=== PATIENT | female | born 1975 | race Caucasian/White ===

== ENCOUNTER → 2021-02-21 15:03 | Outpatient (BNVA) | payer BC, SELFPAY | PROVIDERS: PCP Family Medicine; Visit Provider Internal Medicine ==

== ENCOUNTER 2021-02-22 14:44 | Outpatient (REF) | payer BC, SELFPAY ==
--- NOTE | 2021-02-22 17:29 | PFT_ITS ---
FLOWS: FEV1 103% of predicted at 3.15 L. FVC 95% of predicted at 3.66 L. FEV1 to FVC ratio of 0.86. No bronchodilator response except in small to medium airways. LUNG VOLUMES: Total lung capacity 89% of predicted at 4.79 L. Residual volume 80% of predicted at 1.47 L. Slow vital capacity 94% of predicted at 3.32 L. Expiratory reserve volume 115% of predicted at 1.35 L. Diffusion capacity is normal. IMPRESSION: No obstructive or restrictive ventilatory defect. No bronchodilator response except in small to medium airways. Otherwise essentially normal pulmonary function test. MD RICHY Harris/MODL / [id number] MTDD
== END 2021-02-22 14:45 | disposition home or self-care (01) ==
LOC: HO.RESP 14:44
PROVIDERS: PCP Family Medicine; Visit Provider Internal Medicine
DX: J45.909 Unspecified asthma, uncomplicated (principal); R05 Cough
CPT/HCPCS: 94060; 94727; 94729

== ENCOUNTER → 2021-03-15 14:57 | Outpatient (BNVA) | payer BC, SELFPAY | PROVIDERS: PCP Family Medicine; Visit Provider Internal Medicine ==

== ENCOUNTER → 2021-04-19 15:27 | Outpatient (BNVA) | payer BC, SELFPAY | PROVIDERS: PCP Family Medicine; Visit Provider Internal Medicine ==

== ENCOUNTER 2023-10-30 09:35 | Outpatient (AMB) | payer BC, SELFPAY ==
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
[2023-10-30 09:50] VITALS: BP 110/58; PULSE 110; RESP 14; TEMP 36.7; O2SAT 97; BMI 24.3
== END 2023-10-30 10:48 | disposition home or self-care (01) ==
PROVIDERS: PCP Family Medicine; Visit Provider Internal Medicine
DX: Z00.00 Encounter for general adult medical examination without abnormal findings (principal); I10 Essential (primary) hypertension; E78.2 Mixed hyperlipidemia; R94.6 Abnormal results of thyroid function studies; J45.20 Mild intermittent asthma, uncomplicated; G47.33 Obstructive sleep apnea (adult) (pediatric)
CPT/HCPCS: 99396

== ENCOUNTER 2023-10-30 10:52 | Outpatient (REF) | payer BC, SELFPAY ==
[2023-10-30 14:20] LABS: MANUAL DIFF FLAG NO
[2023-10-30 14:33] LABS: Basophils Absolute Auto 0.1 X10*3/uL (0.0-0.2); Basophils Percent Auto 0.7 % (0-2); Eosinophils Absolute Auto 0.1 X10*3/uL (0.0-0.4); Eosinophils Percent Auto 1.7 % (0-4); Hemoglobin 13.2 g/dl (12.0-16.0); Imm Gran Abs Auto 0.02 X10*3/uL (0.00-0.03); Imm Gran Pct Auto 0.3 % (0.0-0.4); Lymphocytes Absolute Auto 2.8 X10*3/uL (1.2-4.9); Lymphocytes Percent Auto 38.7 % (20-40); Mean Corpuscular Hemoglobin 30.4 pg (27.0-33.0); Mean Corpuscular Volume 92.2 fL (80.0-98.0); Mean Platelet Volume 9.9 fL (9.4-12.3); Monocytes Absolute Auto 0.5 X10*3/uL (0.1-1.2); Neutrophils Absolute Auto 3.7 x10*3/uL (2.0-8.3); Neutrophils Percent Auto 51.6 % (45-73); Platelet Count 367 X10*3/uL (160-400); Red Blood Count 4.34 X10*6/uL (4.20-5.50); Red Cell Distribution Width 13.8 % (11.0-16.0); White Blood Count 7.1 X10*3/uL (4.8-10.8)
[2023-10-30 15:12] LABS: Alanine Aminotransferase 37 U/L (0-31); Albumin Level 4.5 g/dL (3.5-5.0); Alkaline Phosphatase 131 U/L (39-117); Anion Gap 11 (12-20); Aspartate Amino Transferase 20 U/L (5-31); Bilirubin Total 0.1 mg/dL (0.0-1.0); Blood Urea Nitrogen 17 mg/dL (9-16); Calcium 9.8 mg/dL (8.4-10.2); Carbon Dioxide 24 mmol/L (22-29); Chloride 111 mmol/L (96-108); Cholesterol 297 mg/dL (<200); Estimated Glomerular Filt Rate > 60; Glucose Random 78 mg/dL (60-115); HDL Cholesterol 50 mg/dL (>40); LDL Cholesterol Calculated 208 mg/dL (<100); Potassium 3.7 mmol/L (3.3-5.1); Sodium 142 mmol/L (135-145); Total Protein 7.5 g/dL (6.5-8.0); Triglycerides 195 mg/dL (<150)
[2023-10-30 15:16] LABS: TSH reflex Free T4 0.93 uIU/mL (0.32-4.0)
== END 2023-10-30 10:53 | disposition home or self-care (01) ==
LOC: HO.WFDLDS 10:52
PROVIDERS: Visit Provider Internal Medicine
DX: E78.5 Hyperlipidemia, unspecified (principal); I10 Essential (primary) hypertension; R94.6 Abnormal results of thyroid function studies
CPT/HCPCS: 36415; 80053; 80061; 84443; 85025

== ENCOUNTER 2024-02-16 15:47 | Outpatient (AMB) | payer BC, SELFPAY ==
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
--- OUTSIDE RECORDS SUMMARY | 2024-02-16 15:49 | XMS_ITS | Continuity of Care Document ---
Author Organization [facility] Address [address] [place] [id number]- Care Team Providers Care Pr Internship Name Role Phone Cornell VALLECILLO, Miriam Sharpe Primary Care Physician Encounter [facility] [place] Date(s): 10/13/20 - 11/12/20 [facility] [address] [place] [id number] Allergies, Adverse Reactions, Alerts Substance Reaction Severity Status codeine C/O: itching Active morphine N/V, itching, migraines Acti ve sulfa drugs Hives Active Vicodin itching, N/V, migraines Acti ve Demerol HCl itching, N/V, migraines Acti ve Adhesive Bandage C/O: itching Active Immunizations Given and Recorded Vaccine Date Status Refusal Reason Influenza Virus Vaccine (oldterm) 02/07/20 Recorde d influenza virus vaccine, inactivated 03/23/19 Willie rded pneumococcal 13-valent vaccine 03/11/18 Recorded tetanus/diphtheria/pertussis, acel(Tdap) 10/20/15 Given pneumococcal 23-valent vaccine 05/05/09 Given Medications Aimovig SureClick Autoinjector-aooe 140 mg/mL subcutaneous solution = 140 mg, Subcutaneous Infusion, Every 28 days, # 1 kit, 5 Refills, Maintenance, 07/10/20 9:56:00 EST, [facility], 167.6, cm, 06/06/20 14:32:00 EST, Height, 102.1, kg, 04/11/20 6:08:00 EST, Dry Weight Start Date: 07/10/20 Status: Ordered albuterol 0.083% inhalation solution 3 mL = 2.5 mg, Inhalation, Every 6 hours, PRN for wheezing/shortness of breath, # 60 each, 2 Refills, Maintenance, 08/30/20 14:43:00 EDT, Solution, [facility] [address] [place] [address], [place], Partial fill upon patient request if the prescription is... Start Date: 08/30/20 Status: Ordered allopurinol 300 mg oral tablet 300 mg, 1, tablet, By Mouth, Daily, # 30 tablet, Refills 0, Maintenance, 09/30/19 15:52:00 EDT Start Date: 09/30/19 Status: Ordered budesonide 1 mg/2 mL inhalation suspension 1 vials, Inhalation, Daily, # 60 mL, 5 Refills, Maintenance, 11/10/20 12:54:00 EDT, [facility] [address] [place] [address], [place], 168, cm, 10/30/20 10:27:00 EDT, Height, 98.5, kg, 08/03/20 15:21:00 EST, Dry Weight Start Date: 11/10/20 Status: Ordered busPIRone 7.5 mg oral tablet 1 tablet, By Mouth, 2 times a day, # 60 tablet, 2 Refills, Maintenance, 09/13/20 15:06:00 EDT, [facility] [address] [place] [address], [place], 168, cm, 08/03/20 15:21:00 EST, Height, 98.5, kg, 08/03/20 15:21:00 EST, Dry Weight Start Date: 09/13/20 Status: Ordered hydrochlorothiazide 25 mg oral tablet 25 mg, 1, tablet, By Mouth, Daily, # 30 tablet, Refills 5, Tot. Refills 5, Maintenance, 08/07/20 8:58:00 EST, Route to Pharmacy Electronically, [facility] [address] [place] [address], [place], 168, cm,08/03/20 15:21:00 EST, Height, 98.5, kg, 08/03/20 1... Start Date: 08/07/20 Status: Ordered lansoprazole 30 mg oral enteric coated capsule 1 capsule = 30 mg, By Mouth, Daily, # 30 capsule, 0 Refills, Maintenance, 09/14/18 16:04:28 EDT, ECCapsule Start Date: 09/14/18 Status: Ordered levothyroxine 0.05 mg oral tablet 1 tablet = 50 mcg, By Mouth, Daily in AM, ON AN EMPTY stomach., # 90 tablet, 1 Refills, Maintenance, 10/11/20 12:51:00 EDT, [facility] [place], 168, cm, 09/29/20 8:43:00 EDT, Height, 98.5, kg, 08/03/20 15:21:00 EST, Dry Weight Start Date: 10/11/20 Status: Ordered lisinopril 5 mg oral tablet 1, tablet, By Mouth, Daily, # 30 tablet, Refills 2, Tot. Refills 2, Maintenance, 10/11/20 12:52:00 EDT, Route to Pharmacy Electronically, [facility] [address] [place] [address], [place], 168, cm, 09/29/20 8:43:00 EDT, Height, 98.5, kg, 08/03/20 15:21:00... Start Date: 10/11/20 Status: Ordered multivitamin Lipotropic with Multivitamins oral tablet 1 tablet, By Mouth, Daily, # 90 tablet, 0 Refills, Maintenance, 06/06/20 14:35:00 EST, Tablet, Partial fill upon patient request if the prescription is for a schedule II opioid drug. Start Date: 06/06/20 Status: Ordered omeprazole 40 mg oral enteric coated capsule 1 capsule = 40 mg, By Mouth, Daily, 0 Refills, Maintenance, 09/29/20 8:47:00 EDT, Partial fill uponpatient request if the prescription is for a schedule II opioid drug. Start Date: 09/29/20 Status: Ordered ondansetron 8 mg oral tablet 1 tablet, By Mouth, 2 times a day, PRN NEEDED FOR NAUSEA/ VOMITING, # 30 tablet, 0 Refills, Maintenance, 10/13/20 21:48:00 EDT, [facility] [address] [place] [address], [place], 168, cm, 09/29/20 8:43:00 EDT, Height, 98.5, kg, 08/03/20 15:21:00 EST, D... Start Date: 10/13/20 Status: Ordered ProAir HFA 90 mcg/inh inhalation aerosol with adapter 2, puffs, Inhalation, Every 4 hours, PRN, directed., # 8.5 Gm, Refills 5, Tot. Refills 5, Maintenance, 09/26/20 12:18:00 EDT, Route to Pharmacy Electronically, [id number], [facility] [address] [place] [address], 168... Start Date: 09/26/20 Status: Ordered Probiotic Formula By Mouth, Daily, 0 Refills, Maintenance, 07/21/20 11:13:00 EST, Partial fill upon patient request if the prescription is for a schedule II opioid drug. Start Date: 07/21/20 Status: Ordered rosuvastatin 20 mg oral capsule 1 capsule = 20 mg, By Mouth, Daily, # 30 capsule, 5 Refills, Maintenance, 10/11/20 12:53:00 EDT, Capsule, [facility] [address] [place] [address], Partial fill upon patient request if the prescription is for a schedule II opioid drug., 168, cm,... Start Date: 10/11/20 Status: Ordered Singulair 10 mg oral tablet 10 mg, 1, tablet, By Mouth, Daily, # 30 tablet, Refills 5, Tot. Refills 5, Maintenance, 11/10/20 12:55:00 EDT, Route to Pharmacy Electronically, [facility] [address] [place] [address], Partialfill upon patient request if the prescription is fo... Start Date: 11/10/20 Status: Ordered Topamax 100 mg oral tablet 1 tablet = 100 mg, By Mouth, 2 times a day, # 60 tablet, 5 Refills, Maintenance, 07/27/20 11:36:00 EST, Tablet, [facility] [address] [place] [address], 167.6, cm, 07/21/20 11:11:00 EST, Height, 102.1, kg, 04/11/20 6:08:00 EST, Dry Weight Start Date: 07/27/20 Stop Date: 01/23/21 Status: Ordered Zofran 4 mg oral tablet 1 tablet = 4 mg, By Mouth, Every 8 hours, PRN as needed for nausea/vomiting, # 15 tablet, 0 Refills, Maintenance, 08/03/20 15:17:00 EST, Tablet, [facility] [address] [place] [address], Partialfill upon patient request if the prescription is fo... Start Date: 08/03/20 Stop Date: 3/2/21 Status: Ordered Problem List Condition Effective Dates Status Health Status Inform ant Anxiety(Confirmed) Active Asthma(Confirmed) Active Degenerative disc disease(Confirmed) Active Depression(Confirmed) Active Esophageal reflux(Confirmed) Active Hyperglycemia(Confirmed) Active Hyperlipidemia(Confirmed) Active Hypertension(Confirmed) Active Hypothyroid(Confirmed) Active IBS - Irritable bowel syndrome(Confirmed) Active Migraine(Confirmed) Active Radiculopathy(Confirmed) Active Occipital neuralgia(Confirmed) Active Rheumatoid arthritis(Confirmed) Active Tachycardia(Confirmed) Active Social History Social History Type Response Smoking Status Former smoker; Tobac co user in household: No; Type: Cigarettes entered on: 04/24/15 Sex Female
--- OUTSIDE RECORDS SUMMARY | 2024-02-16 15:49 | XMS_ITS | Continuity of Care Document ---
Author Organization [facility] Address [address] [place] [address] D[place], [address] [place] [address]- Care Team Providers Care Barge Loader Name Role Phone Cornell VALLECILLO, Miriam Sharpe Primary Care Physician Encounter [facility] [place] Date(s): 12/24/19 - 01/23/20 [facility] [address] [place] [address] Drive, [address] [place] [address]- [facility] Allergies, Adverse Reactions, Alerts Substance Reaction Severity Status codeine C/O: itching Active morphine N/V, itching, migraines Acti ve sulfa drugs Hives Active Vicodin itching, N/V, migraines Acti ve Demerol HCl itching, N/V, migraines Acti ve Adhesive Bandage C/O: itching Active Immunizations Given and Recorded Vaccine Date Status Refusal Reason influenza virus vaccine, inactivated 03/23/19 Willie rded pneumococcal 13-valent vaccine 03/11/18 Recorded tetanus/diphtheria/pertussis, acel(Tdap) 10/20/15 Given pneumococcal 23-valent vaccine 05/05/09 Given Medications acetaminophen-oxyCODONE 325 mg-5 mg oral tablet 1, tablet, By Mouth, Every 6 hours, PRN, # 28 tablet, Refills 0, Tot. Refills 0, Maintenance, Pain , Moderate, 01/03/20 17:23:00 EDT, Route to Pharmacy Electronically, [facility] [address], Partial fill upon patient request, 167.... Start Date: 01/03/20 Status: Ordered allopurinol 300 mg oral tablet 300 mg, 1, tablet, By Mouth, Daily, # 30 tablet, Refills 0, Maintenance, 09/30/19 15:52:00 EDT Start Date: 09/30/19 Status: Ordered atorvastatin 40 mg oral tablet 1 tablet, By Mouth, Daily, # 30 tablet, 0 Refills, Maintenance, 01/17/20 8:18:00 EDT, [facility] [place], 167.64, cm, 12/14/19 17:50:00 EDT, Height, 106.4, kg, 12/14/19 17:54:00 EDT, Dry Weight Start Date: 01/17/20 Status: Ordered busPIRone 7.5 mg oral tablet 1 tablet, By Mouth, 2 times a day, # 60 tablet, 2 Refills, Maintenance, 12/08/19 12:54:00 EDT, [facility] #[address] [place] [address], 167.64, cm, 12/06/19 15:16:00 EDT, Height, 104.55, kg, 12/06/19 15:16:00 EDT, Dry Weight Start Date: 12/08/19 Status: Ordered hydrochlorothiazide 25 mg oral tablet 25 mg, 1, tablet, By Mouth, Daily, # 30 tablet, Refills 2, Tot. Refills 2, Maintenance, 11/04/19 9:33:00 EDT, Route to Pharmacy Electronically, [facility] [address] [place] [address], 168, cm, 11/03/19 14:03:00 EDT, Height, 116, kg, 06/03/19 14:55:00 EST... Start Date: 11/04/19 Status: Ordered lansoprazole 30 mg oral enteric coated capsule 1 capsule = 30 mg, By Mouth, Daily, # 30 capsule, 0 Refills, Maintenance, 09/14/18 16:04:28 EDT, ECCapsule Start Date: 09/14/18 Status: Ordered levothyroxine 0.05 mg oral tablet 1 tablet = 50 mcg, By Mouth, Daily in AM, ON AN EMPTY stomach., # 90 tablet, 0 Refills, Maintenance, 01/17/20 8:19:00 EDT, [facility] #[facility] [place], [place], 167.64, cm, 12/14/19 17:50:00EDT, Height, 106.4, kg, 12/14/19 17:54:00 EDT, Dry... Start Date: 01/17/20 Status: Ordered lisinopril 5 mg oral tablet 5 mg, 1, tablet, By Mouth, Daily, # 30 tablet, Refills 2, Tot. Refills 2, Maintenance, 11/04/19 9:34:00 EDT, Route to Pharmacy Electronically, [facility] [place], 168, cm, 11/03/19 14:03:00 EDT, Height, 116, kg, 06/03/19 14:55:00 EST,... Start Date: 11/04/19 Status: Ordered Medrol Dosepak 4 mg oral tablet See Instructions, 1 pack/packet By Mouth Daily 6 days, # 1 pack/packet, 0 Refills, Maintenance, 12/28/19 6:48:00 EDT, Tablet, [facility] #[facility] [place], f/u with PCP if history of DM or high blood sugar, 167.64, cm, 12/14/19 17:50:00 EDT, He... Start Date: 12/28/19 Status: Ordered Multi Vitamin+ 0 Refills, Maintenance, 07/21/19 15:30:00 EST Start Date: 07/21/19 Status: Ordered naratriptan 2.5 mg oral tablet 1 tablet = 2.5 mg, By Mouth, Daily, PRN for migraine headache, may repeat dose once in 4 hours, # 9tablet, 2 Refills, Acute 11/12/20 16:16:00 EDT, 10/13/19 16:15:00 EDT, Tablet, [facility] [place], tried sumatriptan , eletriptan , ri... Start Date: 10/13/19 Stop Date: 11/12/20 Status: Ordered ProAir HFA 90 mcg/inh inhalation aerosol with adapter 2, puffs, Inhalation, Every 4 hours, PRN, # 8.5 Gm, Refills 5, Tot. Refills 0, Maintenance, 10/27/19 11:07:00 EDT, Route to Pharmacy Electronically, [id number], [facility] [place], 168, cm, 10/19/19 8:27:00 EDT, Height... Start Date: 10/27/19 Status: Ordered Pulmicort Flexhaler 180 mcg 1 puffs, Inhalation, 2 times a day, # 1 each, 0 Refills, Maintenance, 11/04/19 11:17:00 EDT, Powder, [facility] [place], 1 puffs Inhalation 2 times a day, 168, cm, 11/03/19 14:03:00 EDT, Height, 116, kg, 06/03/19 14:55:00 EST, Dry Weight Start Date: 11/04/19 Status: Ordered tiZANidine 4 mg oral tablet 4 mg, 1, tablet, By Mouth, 3 times a day, # 90 tablet, Refills 0, Tot. Refills 0, Maintenance, 12/14/19 15:29:00 EDT, Route to Pharmacy Electronically, [facility] [place], 167.64, cm, 12/14/19 9:02:00 EDT, Height, 106.4, kg, 12/14/19... Start Date: 12/14/19 Status: Ordered topiramate 25 mg oral tablet 3 tablet = 75 mg, By Mouth, 2 times a day, dose increase, # 180 tablet, 5 Refills, Maintenance, 10/13/19 16:12:00 EDT, Tablet, [facility] [place], 168, cm, 10/01/19 8:15:00 EDT, Height, 116, kg, 06/03/19 14:55:00 EST, Dry Weight Start Date: 10/13/19 Stop Date: 04/10/20 Status: Ordered Zofran 8 mg oral tablet 1 tablet = 8 mg, By Mouth, Every 8 hours, PRN as needed for nausea/vomiting, 0 Refills, Maintenance, 09/02/16 11:46:50, Tablet Start Date: 09/02/16 Status: Ordered Problem List Condition Effective Dates Status Health Status Inform ant Anxiety(Confirmed) Active Asthma(Confirmed) Active Degenerative disc disease(Confirmed) Active Depression(Confirmed) Active Esophageal reflux(Confirmed) Active Hyperglycemia(Confirmed) Active Hyperlipidemia(Confirmed) Active Hypertension(Confirmed) Active Hypothyroid(Confirmed) Active IBS - Irritable bowel syndrome(Confirmed) Active Migraine(Confirmed) Active Occipital neuralgia(Confirmed) Active Rheumatoid arthritis(Confirmed) Active Tachycardia(Confirmed) Active Social History Social History Type Response Smoking Status Former smoker; Tobac co user in household: No; Type: Cigarettes entered on: 04/24/15 Sex Female
--- OUTSIDE RECORDS SUMMARY | 2024-02-16 15:49 | XMS_ITS | Continuity of Care Document ---
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 Inserter Operator Name Role Phone Conrell VALLECILLO, Miriam Sharpe Primary Care Physician Encounter [facility] [place] Date(s): 10/18/20 - 11/17/20 [facility] [address] [place] [id number] Allergies, Adverse Reactions, Alerts Substance Reaction [...] kit, 5 Refills, Maintenance, 07/10/20 9:56:00 EST, [facility], 167.6, cm, 06/06/20 14:32:00 EST, Height, 102.1, kg, 04/11/20 6:08:00 EST, Dry Weight Start Date: 07/10/20 Status: Ordered albuterol 0.083% inhalation solution 3 mL = 2.5 mg, Inhalation, Every 6 hours, PRN for wheezing/shortness of breath, # 60 each, 2 Refills, Maintenance, 08/30/20 14:43:00 EDT, Solution, [facility] [address] [place] [address], [place], Partial fill upon patient request if the prescription is... Start Date: 08/30/20 Status: Ordered allopurinol 300 mg oral tablet 300 mg, 1, tablet, By Mouth, Daily, # 30 tablet, Refills 0, Maintenance, 09/30/19 15:52:00 EDT Start Date: 09/30/19 Status: Ordered budesonide 1 mg/2 mL inhalation suspension 1 vials, Inhalation, Daily, # 60 mL, 5 Refills, Maintenance, 11/10/20 12:54:00 EDT, [facility] [address] [place] [address], [place], 168, cm, 10/30/20 10:27:00 EDT, Height, 98.5, kg, 08/03/20 15:21:00 EST, Dry Weight Start Date: 11/10/20 Status: Ordered busPIRone 7.5 mg oral tablet 1 tablet, By Mouth, 2 times a day, # 60 tablet, 2 Refills, Maintenance, 09/13/20 15:06:00 EDT, [facility] [address] [place] [address], [place], 168, cm, 08/03/20 15:21:00 EST, Height, 98.5, kg, 08/03/20 15:21:00 EST, Dry Weight Start Date: 09/13/20 Status: Ordered hydrochlorothiazide 25 mg oral tablet 25 mg, 1, tablet, By Mouth, Daily, # 30 tablet, Refills 5, Tot. Refills 5, Maintenance, 08/07/20 8:58:00 EST, Route to Pharmacy Electronically, [facility] [address] [place] [address], [place], 168, cm,08/03/20 15:21:00 EST, Height, 98.5, kg, [...] tablet, 1 Refills, Maintenance, 10/11/20 12:51:00 EDT, [facility] [address] [place] [address], [place], 168, cm, 09/29/20 8:43:00 EDT, Height, 98.5, kg, 08/03/20 15:21:00 EST, Dry Weight Start Date: 10/11/20 Status: Ordered lisinopril 5 mg oral tablet 1, tablet, By Mouth, Daily, # 30 tablet, Refills 2, Tot. Refills 2, Maintenance, 10/11/20 12:52:00 EDT, Route to Pharmacy Electronically, [facility] [address] [place] [address], [place], 168, cm, 09/29/20 8:43:00 EDT, Height, 98.5, [...] tablet, 0 Refills, Maintenance, 10/13/20 21:48:00 EDT, [facility] [address] [place] [address], [place], 168, cm, 09/29/20 8:43:00 EDT, Height, 98.5, kg, 08/03/20 15:21:00 EST, D... Start Date: 10/13/20 Status: Ordered ProAir HFA 90 mcg/inh inhalation aerosol with adapter 2, puffs, Inhalation, Every 4 hours, PRN, directed., # 8.5 Gm, Refills 5, Tot. Refills 5, Maintenance, 09/26/20 12:18:00 EDT, Route to Pharmacy Electronically, [id number], [facility] [address] [place] [address], 168... Start Date: 09/26/20 Status: Ordered Probiotic Formula By Mouth, Daily, 0 Refills, Maintenance, 07/21/20 11:13:00 EST, Partial fill upon patient request if the prescription is for a schedule II opioid drug. Start Date: 07/21/20 Status: Ordered rosuvastatin 20 mg oral capsule 1 capsule = 20 mg, By Mouth, Daily, # 30 capsule, 5 Refills, Maintenance, 10/11/20 12:53:00 EDT, Capsule, [facility] [address] [place] [address], Partial fill upon patient request if the prescription is for a schedule II opioid drug., 168, cm,... Start Date: 10/11/20 Status: Ordered Singulair 10 mg oral tablet 10 mg, 1, tablet, By Mouth, Daily, # 30 tablet, Refills 5, Tot. Refills 5, Maintenance, 11/10/20 12:55:00 EDT, Route to Pharmacy Electronically, [facility] [address] [place] [address], Partialfill upon patient request if the prescription is fo... Start Date: 11/10/20 Status: Ordered Topamax 100 mg oral tablet 1 tablet = 100 mg, By Mouth, 2 times a day, # 60 tablet, 5 Refills, Maintenance, 07/27/20 11:36:00 EST, Tablet, [facility] [address] [place] [address], 167.6, cm, 07/21/20 11:11:00 EST, Height, 102.1, kg, 04/11/20 6:08:00 EST, Dry Weight Start Date: 07/27/20 Stop Date: 01/23/21 Status: Ordered Zofran 4 mg oral tablet 1 tablet = 4 mg, By Mouth, Every 8 hours, PRN as needed for nausea/vomiting, # 15 tablet, 0 Refills, Maintenance, 08/03/20 15:17:00 EST, Tablet, [facility] [address] [place] [address], Partialfill upon patient request if the prescription is fo... Start Date: 08/03/20 Stop Date: 08/08/20 Status: Ordered Problem List Condition Effective Dates [...]
--- OUTSIDE RECORDS SUMMARY | 2024-02-16 15:49 | XMS_ITS | Continuity of Care Document ---
Author Organization [facility] ter Address [address] [place] [id number]- Care Team Providers Care Liquefier Name Role Phone Cornell VALLECILLO, Miriam Sharpe Primary Care Physician Encounter [facility] [place] Date(s): 04/11/20 - 04/11/[address] [address]- [facility] Discharge Disposition: A-D/C Home Attending Physician: Todd Gallo MD Admitting Physician: Todd Gallo MD Referring Physician: Todd Gallo MD Allergies, Adverse Reactions, Alerts Substance Reaction Severity [...] days, # 1 kit, 5 Refills, Maintenance, 02/08/20 9:40:00 EDT, [facility], 167.64, cm, 02/07/20 13:13:00 EDT, Height, 106.4, kg, 12/14/19 17:54:00 EDT, Dry Weight Start Date: 02/08/20 Status: Ordered allopurinol 300 mg oral tablet 300 mg, 1, tablet, By Mouth, Daily, # 30 tablet, Refills 0, Maintenance, 09/30/19 15:52:00 EDT Start Date: 09/30/19 Status: Ordered atorvastatin 80 mg oral tablet 1 tablet = 80 mg, By Mouth, Daily, # 30 tablet, 2 Refills, Maintenance, 02/10/20 8:57:00 EDT, Tablet, [facility] [place], [place], 167.64, cm, 02/07/20 13:13:00 EDT, Height, 106.4, kg, 12/14/19 17:54:00 EDT, Dry Weight Start Date: 02/10/20 Status: Ordered busPIRone 7.5 mg oral tablet 1 tablet, By Mouth, 2 times a day, # 60 tablet, 5 Refills, Maintenance, 03/17/20 14:27:00 EDT, [facility], 167.64, cm, 02/07/20 13:13:00 EDT, Height, 106.4, kg, 12/14/19 17:54:00 EDT, Dry Weight Start Date: 03/17/20 Status: Ordered hydrochlorothiazide 25 mg oral tablet 25 mg, 1, tablet, By Mouth, Daily, # 30 tablet, Refills 2, Tot. Refills 2, Maintenance, 11/04/19 9:33:00 EDT, Route to Pharmacy Electronically, [facility] [address] [place] [address], 168, cm, 11/03/19 14:03:00 EDT, Height, 116, [...] tablet, 0 Refills, Maintenance, 01/17/20 8:19:00 EDT, [facility] [place], [place], 167.64, cm, 12/14/19 17:50:00EDT, Height, 106.4, kg, 12/14/19 17:54:00 EDT, Dry... Start Date: 01/17/20 Status: Ordered lisinopril 5 mg oral tablet 5 mg, 1, tablet, By Mouth, Daily, # 30 tablet, Refills 5, Tot. Refills 5, Maintenance, 02/07/20 13:48:00 EDT, Route to Pharmacy Electronically, [facility] [address] [place] [address], 167.64, cm, 02/07/20 13:13:00 EDT, Height, 106.4, kg, ... Start Date: 02/07/20 Status: Ordered Multi Vitamin+ 0 Refills, Maintenance, 07/21/19 15:30:00 EST Start Date: 07/21/19 Status: Ordered Neurontin 300 mg oral capsule 300 mg, 1, capsule, By Mouth, 3 times a day, # 30 tablet, Refills 0, Tot. Refills 0, Maintenance, 04/11/20 15:24:00 EST, Route to Pharmacy Electronically, [facility] [address] [place] [address], 167.6, cm, 04/11/20 6:08:00 EST, Height, 102.1, k... Start Date: 04/11/20 Status: Ordered oxyCODONE 10 mg oral tablet 1 tablet = 10 mg, By Mouth, Every 6 hours, PRN as needed for pain, # 40 tablet, 0 Refills, Maintenance, 04/11/20 15:23:00 EST, Tablet, [facility] [address] [place] [address], Partial fill uponpatient request, 167.6, cm, 04/11/20 6:08:00 EST, H... Start Date: 04/11/20 Status: Ordered ProAir HFA 90 mcg/inh inhalation aerosol with adapter 2, puffs, Inhalation, Every 4 hours, PRN, directed., # 8.5 Gm, Refills 5, Tot. Refills 0, Maintenance, 02/07/20 11:10:00 EDT, Route to Pharmacy Electronically, [id number], [facility], 167.64, cm, 01/19/20 11... Start Date: 02/07/20 Status: Ordered Pulmicort Flexhaler 180 mcg 1 puffs, Inhalation, 2 times a day, # 1 each, 0 Refills, Maintenance, 11/04/19 11:17:00 EDT, Powder, [facility] [place], 1 puffs Inhalation 2 times a day, 168, cm, 11/03/19 14:03:00 EDT, Height, 116, kg, 06/03/19 14:55:00 EST, Dry Weight Start Date: 11/04/19 Status: Ordered Topamax 100 mg oral tablet 1 tablet = 100 mg, By Mouth, 2 times a day, # 60 tablet, 5 Refills, Maintenance, 01/27/20 16:14:00 EDT, Tablet, [facility] [place], [place], 167.64, cm, 01/19/20 11:34:00 EDT, Height, 106.4, kg, 12/14/19 17:54:00 EDT, Dry Weight Start Date: 01/27/20 Stop Date: 07/25/20 Status: Ordered Valium 5 mg oral tablet 5 mg, 1, tablet, By Mouth, 3 times a day, PRN, # 30 tablet, Refills 0, Tot. Refills 0, Maintenance,Spasm, 04/11/20 15:24:00 EST, Route to Pharmacy Electronically, [facility] [address] [place] [address], 167.6, cm, 04/11/20 6:08:00 EST, Height,... Start Date: 04/11/20 Status: Ordered Zofran 8 mg oral tablet 1 tablet = 8 mg, By Mouth, 2 times a day, PRN as needed for nausea/vomiting, # 30 tablet, 0 Refills, Maintenance, 04/05/20 9:49:00 EDT, Tablet, [facility] [address] [place] [address], 167.64, cm, 04/05/20 9:29:00 EDT, Height, 106.4, kg, ... Start Date: 04/05/20 Status: Ordered Problem List Condition Effective Dates Status Health Status Inform ant Anxiety(Confirmed) Active Asthma(Confirmed) Active Degenerative disc disease(Confirmed) Active Depression(Confirmed) Active Esophageal reflux(Confirmed) Active Hyperglycemia(Confirmed) Active Hyperlipidemia(Confirmed) Active Hypertension(Confirmed) Active Hypothyroid(Confirmed) Active IBS - Irritable bowel syndrome(Confirmed) Active Migraine(Confirmed) Active Radiculopathy(Confirmed) Active Occipital neuralgia(Confirmed) Active Rheumatoid arthritis(Confirmed) Active Tachycardia(Confirmed) Active Results Radiology Reports * Exam Date Time Procedure Performing Provider Status 04/11/20 11:10 AM C-Arm > 1 Hour Madeline Knight; Kathleen h (Verified) Notes: (C-Arm > 1 Hour) Reason For Exam: cervical stenosis laminectomy decompression posterior cervical RESULT: C-Arm > 1 Hour Cervical Spine 3 Views or Less, C-Arm > 1 Hour INDICATION: cervical stenosis laminectomy decompression posterior cervical COMPARISONS: Spine radiograph 12/14/2019 TECHNIQUE: Fluoroscopy support was provided. There was no radiologist in attendance. Fluoroscopy time: 52 seconds Technologist time: 1 hour 50 minutes Exposure: 51.03 mGy Total images: 10 FINDINGS: 10 intraoperative images were submitted during C7-T1 posterior decompression. Images demonstrate localization of the C7-T1 disc space.. IMPRESSION: See above. Please see full operative report for further detail. I have personally reviewed the images and I agree with this report. WSN: [id number] Ordering Physician: Todd Gallo Dictated By: Nayeli Montero MD Dictated Date/Time: 04/11/20 11:27 a Reviewed By: Gilson Hunter MD Signed By: Gilson Hunter MD Signed Date/Time: 04/11/20 11:32 am Transcribed By: MARLEN Transcribed Date/Time: 04/11/20 11:21 am * Exam Date Time Procedure Performing Provider Status 04/11/20 11:10 AM Cervical Spine 3 Views or Less Madeline Henry; Auth (Verified) Notes: (Cervical Spine 3 Views or Less) Reason For Exam: cervical stenosis laminectomy decompression posterior cervical RESULT: Cervical Spine 3 Views or Less Cervical Spine 3 Views or Less, C-Arm > 1 Hour INDICATION: cervical stenosis laminectomy decompression posterior cervical COMPARISONS: Spine radiograph 12/14/2019 TECHNIQUE: Fluoroscopy support was provided. There was no radiologist in attendance. Fluoroscopy time: 52 seconds Technologist time: 1 hour 50 minutes Exposure: 51.03 mGy Total images: 10 FINDINGS: 10 intraoperative images were submitted during C7-T1 posterior decompression. Images demonstrate localization of the C7-T1 disc space.. IMPRESSION: See above. Please see full operative report for further detail. I have personally reviewed the images and I agree with this report. WSN: [id number] Ordering Physician: Todd Gallo Dictated By: Nayeli Montero MD Dictated Date/Time: 04/11/20 11:27 a Reviewed By: Gilson Hunter MD Signed By: Gilson Hunter MD Signed Date/Time: 04/11/20 11:32 am Transcribed By: MARLEN Transcribed Date/Time: 04/11/20 11:21 am Vital Signs Most recent to oldest [Reference Range]: 1 2 3 Height 167.6 cm (04/11/20 5:50 AM) 167.6 cm (04/06/20 10:30 AM) Weight 102.1 kg (04/11/20 5:50 AM) 102.2 kg (04/06/20 10:30 AM) Oxygen Saturation [94-100 %] 89 % *L* (04/11/20 1:30 PM) 94 % (04/11/20 1:15 PM) 99 % (04/11/20 1:00 PM) Pulse Rate [55-90 bpm] 92 bpm *H* (04/11/20 5:50 AM) Body Mass Index [18.5-24.99] 36.35 *>HHI* (04/11/20 5:50 AM) 36.38 *>HHI* (04/06/20 10:30 AM) Blood Pressure [90-138/55-84 mm Hg] 120/105mm Hg (04/11/20 1:30 PM) 155/76mm Hg *H* (04/11/20 1:15 PM) 128/75mm Hg (04/11/20 1:00 PM) Respiratory Rate [16-30 br/min] 20 br/min (04/11/20 3:38 PM) 16 br/min (04/11/20 1:30 PM) 15 br/min *L* (04/11/20 1:15 PM) Temperature [96.8-100.4 DegF] 97.5 DegF (04/11/20 1:30 PM) 97.5 DegF (04/11/20 11:15 AM) 98.1 DegF (04/11/20 5:50 AM) Liters per Minute 3 L/min (04/11/20 11:45 AM) 6 L/min (04/11/20 11:15 AM) Mode of Delivery (Oxygen) Room air (04/11/20 1:30 PM) Nasal cannula (04/11/20 11:45 AM) Simple face mask (04/11/20 11:15 AM) Blood pressure sites Arm, right (04/11/20 1:30 PM) Arm, right (04/11/20 12:00 PM) Arm, right (04/11/20 11:45 AM) Temperature Route Temporal (04/11/20 1:30 PM) Temporal (04/11/20 11:15 AM) Temporal (04/11/20 5:50 AM) Dry Weight 102.1 kg (04/11/20 5:50 AM) 102.2 kg (04/06/20 10:30 AM) Weight Obtained Via Standing scale (04/11/20 5:50 AM) Patient/family stated (04/06/20 10:30 AM) Dry Weight Obtained Via Standing scale (04/11/20 5:50 AM) Patient/family stated (04/06/20 10:30 AM) Social History Social History Type Response Smoking Status Former smoker; Tobac co user in household: No; Type: Cigarettes entered on: 04/24/15 Sex Female
--- OUTSIDE RECORDS SUMMARY | 2024-02-16 15:49 | XMS_ITS | Continuity of Care Document ---
Author Organization [facility] Address [address] [facility], [address] d Floor, [address] [place] [id number]- Care Team Providers Care Director Cardiovascular Name Role Phone Cornell VALLECILLO, Miriam Sharpe Primary Care Physician Encounter [facility] Date(s): 07/03/20 - 08/02/20 [facility] [address], [address], [address] [place] [id number] Allergies, Adverse Reactions, Alerts [...] kit, 5 Refills, Maintenance, 07/10/20 9:56:00 EST, [facility], 167.6, cm, 06/06/20 14:32:00 EST, Height, 102.1, kg, 04/11/20 6:08:00 EST, Dry Weight Start Date: 07/10/20 Status: Ordered albuterol 0.083% inhalation solution 3 mL = 2.5 mg, Inhalation, Every 6 hours, PRN for wheezing/shortness of breath, # 60 each, 0 Refills, Maintenance, 07/21/20 11:30:00 EST, Solution, [facility] [address] [place] [address], [place], Partial fill upon patient request if the prescription is... Start Date: 07/21/20 Status: Ordered allopurinol 300 mg oral tablet 300 mg, 1, tablet, By Mouth, Daily, # 30 tablet, Refills 0, Maintenance, 09/30/19 15:52:00 EDT Start Date: 09/30/19 Status: Ordered budesonide 1 mg/2 mL inhalation suspension 2 mL = 1 mg, Neb, Daily, # 60 mL, 2 Refills, Maintenance, 07/21/20 11:31:00 EST, Suspension, [facility] [address] [place] [address], [place], Partial fill upon patient request if the prescription is for a schedule II opioid drug., 167.6, cm, 07/21/20 11... Start Date: 07/21/20 Status: Ordered busPIRone 7.5 mg oral tablet 1 tablet, By Mouth, 2 times a day, # 60 tablet, 5 Refills, Maintenance, 03/17/20 14:27:00 EDT, [facility], 167.64, cm, 02/07/20 13:13:00 EDT, Height, 106.4, kg, 12/14/19 17:54:00 EDT, Dry Weight Start Date: 03/17/20 Status: Ordered hydrochlorothiazide 25 mg oral tablet 25 mg, 1, tablet, By Mouth, Daily, # 30 tablet, Refills 2, Tot. Refills 2, Maintenance, 11/04/19 9:33:00 EDT, Route to Pharmacy Electronically, [facility] [address] [place] [address], 168, cm, 11/03/19 14:03:00 EDT, Height, 116, [...] stomach., # 90 tablet, 1 Refills, Maintenance, 04/20/20 16:15:00 EST, [facility] [address] [place] [address], 167.6, cm, 04/11/20 6:08:00 EST, Height, 102.1, kg, 04/11/20 6:08:00 EST, Dry We... Start Date: 04/20/20 Status: Ordered lisinopril 5 mg oral tablet 1, tablet, By Mouth, Daily, # 30 tablet, Refills 2, Tot. Refills 0, Maintenance, 07/14/20 14:59:00 EST, Route to Pharmacy Electronically, [facility], 167.6, cm, 06/06/20 14:32:00 EST, Height, 102.1, kg, 04/11/20 6:08:00 EST, Dry Weight Start Date: 07/14/20 Status: Ordered Multi Vitamin+ 0 Refills, Maintenance, 07/21/19 15:30:00 EST Start Date: 07/21/19 Status: Ordered multivitamin Lipotropic with Multivitamins oral tablet 1 tablet, By Mouth, Daily, # 90 tablet, 0 Refills, Maintenance, 06/06/20 14:35:00 EST, Tablet, Partial fill upon patient request if the prescription is for a schedule II opioid drug. Start Date: 06/06/20 Status: Ordered ondansetron 8 mg oral tablet 1 tablet, By Mouth, 2 times a day, PRN NEEDED FOR NAUSEA/ VOMITING, # 30 tablet, 0 Refills, Maintenance, 05/19/20 8:29:00 EST, [facility], 167.6, cm, 05/09/20 16:10:00 EST, Height, 102.1, kg, 04/11/20 6:08:00 EST, Dry Weight Start Date: 05/19/20 Status: Ordered ProAir HFA 90 mcg/inh inhalation aerosol with adapter 2, puffs, Inhalation, Every 4 hours, PRN, directed., # 8.5 Gm, Refills 2, Tot. Refills 2, Maintenance, 06/07/20 13:23:00 EST, Route to Pharmacy Electronically, [id number], [facility] [address] [place] [address], 167... Start Date: 06/07/20 Status: Ordered Probiotic Formula By Mouth, Daily, 0 Refills, Maintenance, 07/21/20 11:13:00 EST, Partial fill upon patient request if the prescription is for a schedule II opioid drug. Start Date: 07/21/20 Status: Ordered rosuvastatin 20 mg oral capsule 1 capsule = 20 mg, By Mouth, Daily, # 30 capsule, 2 Refills, Maintenance, 07/14/20 12:02:00 EST, Capsule, [facility], [place], Partial fill upon patient request if the prescription is for a schedule II opioid drug., 167.6, cm... Start Date: 07/14/20 Status: Ordered Singulair 10 mg oral tablet 10 mg, 1, tablet, By Mouth, Daily, # 30 tablet, Refills 5, Tot. Refills 5, Maintenance, 06/07/20 13:22:00 EST, Route to Pharmacy Electronically, [facility] [address] [place] [address], [place], Partialfill upon patient request if the prescription is fo... Start Date: 06/07/20 Status: Ordered Topamax 100 mg oral tablet 1 tablet = 100 mg, By Mouth, 2 times a day, # 60 tablet, 5 Refills, Maintenance, 07/27/20 11:36:00 EST, Tablet, [facility], [place], 167.6, cm, 07/21/20 11:11:00 EST, Height, 102.1, kg, 04/11/20 6:08:00 EST, Dry Weight Start Date: 07/27/20 Stop Date: 01/23/21 Status: Ordered Problem List Condition Effective Dates [...]
--- OUTSIDE RECORDS SUMMARY | 2024-02-16 15:49 | XMS_ITS | Continuity of Care Document ---
Author Organization [facility] ter Address [address] [place] [id number]- Care Team Providers Care Setter Induction Heating Equipment Name Role Phone Estella BRADSHAW, Danielle I Primary Care Physician Encounter [facility] Date(s): 06/14/19 - 06/14/[address] [address]- [facility] Attending Physician: Cornell VALLECILLO, Miriam Sharpe Allergies, Adverse Reactions, Alerts Substance Reaction Severity [...] Given pneumococcal 23-valent vaccine 05/05/09 Given Medications atorvastatin 40 mg oral tablet 1 tablet, By Mouth, Daily, # 30 tablet, 1 Refills, Soft Stop, 06/07/19 14:27:00 EST, [facility] [place], 168, cm, 06/07/19 13:13:00 EST, Height, 116, kg, 06/03/19 14:55:00 EST, Dry Weight Start Date: 06/07/19 Status: Ordered busPIRone 7.5 mg oral tablet 1 tablet = 7.5 mg, By Mouth, 2 times a day, # 60 tablet, 0 Refills, Maintenance, 06/14/19 17:00:00 EST, [facility] [place], 168, cm, 06/14/19 9:12:00 EST, Height, 116, kg, 06/03/19 14:55:00 EST, Dry Weight Start Date: 06/14/19 Status: Ordered hydrochlorothiazide 12.5 mg oral tablet 1 tablet = 12.5 mg, By Mouth, Daily, # 30 tablet, 0 Refills, Maintenance, 06/07/19 13:34:00 EST, Tablet, [facility] [place], 168, cm, 06/07/19 13:13:00 EST, Height, 116, kg, 06/03/1914:55:00 EST, Dry Weight Start Date: 06/07/19 Status: Ordered lansoprazole 30 mg oral enteric coated capsule 1 capsule = 30 mg, By Mouth, Daily, # 30 capsule, 0 Refills, Maintenance, 09/14/18 16:04:28 EDT, ECCapsule Start Date: 09/14/18 Status: Ordered levothyroxine 0.05 mg oral tablet 1 tablet, By Mouth, Daily in AM, ON AN EMPTY stomach., # 30 tablet, 2 Refills, Soft Stop, 06/07/19 14:27:00 EST, [facility] [place], 168, cm, 06/07/19 13:13:00 EST, Height, 116, kg, 06/03/19 14:55:00 EST, Dry Weight Start Date: 06/07/19 Status: Ordered ProAir HFA 90 mcg/inh inhalation aerosol with adapter 2, puffs, Inhalation, Every 4 hours, PRN, # 8.5 Gm, Refills 2, Tot. Refills 2, Maintenance, 06/14/19 9:21:00 EST, Route to Pharmacy Electronically, [id number], [facility] [place], 168, cm, 06/14/19 9:12:00 ES... Start Date: 06/14/19 Status: Ordered topiramate 25 mg oral tablet 0 Refills, Maintenance, 05/31/19 16:18:00 EST Start Date: 05/31/19 Status: Ordered Zofran 8 mg oral tablet 1 tablet = 8 mg, By Mouth, Every 8 hours, PRN as needed for nausea/vomiting, 0 Refills, Maintenance, 09/02/16 11:46:50, Tablet Start Date: 09/02/16 Status: Ordered Problem List Condition Effective Dates Status Health Status Inform ant Anxiety(Confirmed) Active Asthma(Confirmed) Active Left-sided chest wall pain(Confirmed) Active Degenerative disc disease(Confirmed) Active Depression(Confirmed) Active Esophageal reflux(Confirmed) Active Pain of left heel(Confirmed) Active Hyperglycemia(Confirmed) Active Hyperlipidemia(Confirmed) Active Hypothyroid(Confirmed) Active IBS - Irritable bowel syndrome(Confirmed) Active LUQ pain(Confirmed) Active Migraine(Confirmed) Active Occipital neuralgia(Confirmed) Active Prolapsed cervical intervert ebral disc(Confirmed) Active Tachycardia(Confirmed) Active Social History Social History Type Response Smoking Status Former smoker; Tobac co user in household: No; Type: Cigarettes entered on: 04/24/15 Sex
--- OUTSIDE RECORDS SUMMARY | 2024-02-16 15:49 | XMS_ITS | Continuity of Care Document ---
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 (4885) or log in to [email or web address] for referrals to smoking cessation programs. ?? The National Suicide Prevention Hotline is available 30/12 if you or someone you know needs to find a reason to keep living. By calling 2-931-765-[employer] (2639) you'll be connected to a skilled, trained counselor at a crisis center in your area. INPATIENT DISCHARGE INSTRUCTIONS SIGNATURE PAGE SAJI GUTIERRES Location:[facility] Registration Date and Time:05/17/2022 04:52 EST Primary Care Physician: Gilma VALLECILLO, Noreen Dennis, I SAJI GUTIERRES, have received the above patient education materials/instructions and have verbalized understanding. If ambulance or transport services are being used I further acknowledge being given a choice of service. ?? If you need to contact me, please call me at this number: . 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 Signature: Relationship to Patient: Witness Name/Signature: Date: Patient Care team information Care Team Personnel Name: Marco Licona RN Position: S RN Member Role: Primary Care Nurse Name: Noreen Dillard MD Position: [facility] Primary Care Physician Member Role: PCP Address: Address: [address] [place] [address] Name: Dylan Cox RN Position: [facility] RN Member Role: Primary Care Nurse Care Team Related Persons Name: JEREMY GUTIÉRREZ Address: home [address] [place] [address] Name: KAYLEEN WILLAMS Address: home [address] [place] [address] Name: SHAMEKA GUTIERRES Address: home [address] [place] [address]
--- OUTSIDE RECORDS SUMMARY | 2024-02-16 15:49 | XMS_ITS | Continuity of Care Document ---
Author Organization [facility] Address [address] [place] [address] [address]ordan rogers, [address] [place] [address]- Care Team Providers Care Retail Product Advisor Name Role Phone Cornell VALLECILLO, Miriam Sharpe Primary Care Physician [place] [facility] [place] - 11/24/19 [facility] [address] [place] [address] Drive, [address] [place] [address]- [facility] Attending Physician: Cleo VALLECILLO, Todd Tolliver Allergies, Adverse Reactions, Alerts Substance Reaction Severity [...] Given pneumococcal 23-valent vaccine 05/05/09 Given Medications allopurinol 300 mg oral tablet 300 mg, 1, tablet, By Mouth, Daily, # 30 tablet, Refills 0, Maintenance, 09/30/19 15:52:00 EDT Start Date: 09/30/19 Status: Ordered atorvastatin 40 mg oral tablet 1 tablet, By Mouth, Daily, # 30 tablet, 2 Refills, Maintenance, 09/08/19 11:34:00 EDT, [facility], 168, cm, 07/26/19 14:34:00 EST, Height, 116, kg, 06/03/19 14:55:00 EST, Dry Weight Start Date: 09/08/19 Status: Ordered busPIRone 7.5 mg oral tablet 1 tablet, By Mouth, 2 times a day, # 60 tablet, 2 Refills, Maintenance, 08/25/19 11:42:00 EDT, [facility], 168, cm, 07/26/19 14:34:00 EST, Height, 116, kg, 06/03/19 14:55:00 EST, Dry Weight Start Date: 08/25/19 Status: Ordered hydrochlorothiazide 25 mg oral tablet 25 mg, 1, tablet, By Mouth, Daily, # 30 tablet, Refills 2, Tot. Refills 2, Maintenance, 11/04/19 9:33:00 EDT, Route to Pharmacy Electronically, [facility] [place], 168, cm, 11/03/19 14:03:00 [...] EMPTY stomach., # 30 tablet, 2 Refills, Maintenance, 08/13/19 12:28:00 EST, [facility], 168, cm, 07/26/19 14:34:00 EST, Height, 116, kg, 06/03/1914:55:00 EST, Dry Weight Start Date: 08/13/19 Status: Ordered lisinopril 5 mg oral tablet 5 mg, 1, tablet, By Mouth, Daily, # 30 tablet, Refills 2, Tot. Refills 2, Maintenance, 11/04/19 9:34:00 EDT, Route to Pharmacy Electronically, [facility] [place], 168, cm, 11/03/19 14:03:00 EDT, Height, 116, kg, 06/03/19 14:55:00 EST,... Start Date: 11/04/19 Status: Ordered meloxicam 15 mg oral tablet 1 tablet = 15 mg, By Mouth, Daily, # 90 tablet, 0 Refills, Maintenance, 07/21/19 15:29:00 EST, Tablet Start Date: 07/21/19 Status: Ordered Multi Vitamin+ 0 Refills, Maintenance, 07/21/19 15:30:00 EST Start Date: 07/21/19 Status: Ordered naratriptan 2.5 mg oral tablet 1 tablet = 2.5 mg, By Mouth, Daily, PRN for migraine headache, may repeat dose once in 4 hours, # 9tablet, 2 Refills, Acute 11/12/20 16:16:00 EDT, 10/13/19 16:15:00 EDT, Tablet, [facility] [place], tried sumatriptan , eletriptan , ri... Start Date: 10/13/19 Stop Date: 11/12/20 Status: Ordered ProAir HFA 90 mcg/inh inhalation aerosol with adapter 2, puffs, Inhalation, Every 4 hours, PRN, # 8.5 Gm, Refills 5, Tot. Refills 0, Maintenance, 10/27/19 11:07:00 EDT, Route to Pharmacy Electronically, [id number], [facility], 168, cm, 10/19/19 8:27:00 EDT, Height... Start Date: 10/27/19 Status: Ordered Pulmicort Flexhaler 180 mcg 1 puffs, Inhalation, 2 times a day, # 1 each, 0 Refills, Maintenance, 11/04/19 11:17:00 EDT, Powder, [facility] [place], 1 puffs Inhalation 2 times a day, 168, cm, 11/03/19 14:03:00 EDT, Height, 116, kg, 06/03/19 14:55:00 EST, Dry Weight Start Date: 11/04/19 Status: Ordered topiramate 25 mg oral tablet 3 tablet = 75 mg, By Mouth, 2 times a day, dose increase, # 180 tablet, 5 Refills, Maintenance, 10/13/19 16:12:00 EDT, Tablet, [facility] [place], [...]
--- OUTSIDE RECORDS SUMMARY | 2024-02-16 15:49 | XMS_ITS | Continuity of Care Document ---
Author Organization [facility] Address Unknown Care Team Providers Care Dross Puller Name Role Phone Cornell VALLECILLO, Miriam Sharpe Primary Care Physician Encounter [facility] [place] Date(s): 04/26/21 - 05/26/21 [facility] Attending Physician: Socorro Koch Admitting Physician: Socorro Koch Referring Physician: Socorro Koch Allergies, Adverse Reactions, Alerts Substance Reaction Severity Status codeine C/O: itching Active morphine N/V, itching, migraines Acti ve sulfa drugs Hives Active Vicodin itching, N/V, migraines Acti ve Demerol HCl itching, N/V, migraines Acti ve Adhesive Bandage C/O: itching Active Immunizations Given and Recorded Vaccine Date Status Refusal Reason SARS-CoV-2 (COVID-19) mRNA-1273 vaccine 05/14/21 R ecorded [...] Recorde d pneumococcal 13-valent vaccine 03/11/18 Recorded tetanus/diphtheria/pertussis, acel(Tdap) 10/20/15 Given tetanus/diphtheria/pertussis, acel(Tdap) 06/11/11 Recorded pneumococcal 23-valent vaccine 05/05/09 Given influ virus vac, H1N1, inactive(oldterm) 04/20/09 Recorded Medications Aimovig SureClick Autoinjector-aooe 140 mg/mL subcutaneous solution = 140 mg, Subcutaneous Infusion, Every 28 days, # 1 kit, 5 Refills, Maintenance, 12/31/20 19:35:00 EDT, [facility], 168, cm, 12/05/20 15:50:00 EDT, Height, 94.5, kg, 12/05/20 15:50:00 EDT, Dry Weight Start Date: 12/31/20 Status: Ordered albuterol 0.083% inhalation solution 3 mL = 2.5 mg, Inhalation, Every 6 hours, PRN for wheezing/shortness of breath, # 60 each, 5 Refills, Maintenance, 12/03/20 14:36:00 EDT, Solution, [facility] [address] [place] [address], [place], Partial fill upon patient request if the prescription is... Start Date: 12/03/20 Status: Ordered allopurinol 300 mg oral tablet 300 mg, 1, tablet, By Mouth, Daily, # 30 tablet, Refills 0, Maintenance, 09/30/19 15:52:00 EDT Start Date: 09/30/19 Status: Ordered budesonide 1 mg/2 mL inhalation suspension 1 vials, Inhalation, Daily, # 60 mL, 5 Refills, Maintenance, 11/10/20 12:54:00 EDT, [facility] [address] [place] [address], [place], 168, cm, 10/30/20 10:27:00 EDT, Height, 98.5, kg, 08/03/20 15:21:00 EST, Dry Weight Start Date: 11/10/20 Status: Ordered hydrochlorothiazide 25 mg oral tablet 1, tablet, By Mouth, Daily, # 30 tablet, Refills 5, Route to Pharmacy Electronically, [facility], 168, cm, 01/24/21 15:18:00 EDT, Height, 94.5, kg, 12/05/20 15:50:00 EDT, Dry Weight Start Date: 02/14/21 Status: Ordered lansoprazole 30 mg oral enteric coated capsule 1 capsule = 30 mg, By Mouth, Daily, # 30 capsule, 0 Refills, Maintenance, 09/14/18 16:04:28 EDT, ECCapsule Start Date: 09/14/18 Status: Ordered levothyroxine 0.05 mg oral tablet 1 tablet, By Mouth, Daily in AM, ON AN EMPTY stomach., # 90 tablet, 1 Refills, [facility], 168, cm, 01/24/21 15:18:00 EDT, Height, 94.5, kg, 12/05/20 15:50:00 EDT, Dry Weight Start Date: 05/15/21 Status: Ordered multivitamin Lipotropic with Multivitamins oral [...] Replace Required Details, Route to Pharmacy Electronically, [facility] [place],... Start Date: 12/05/20 Status: Ordered omeprazole 40 [...] VOMITING, # 30 tablet, 1 Refills, Maintenance, 03/27/21 8:34:00 EDT, [facility] [place], [place], 168, cm, 01/24/21 15:18:00 EDT, Height, 94.5, kg, 12/05/20 15:50:00 EDT, D... Start Date: 03/27/21 Status: Ordered ProAir HFA 90 mcg/inh inhalation aerosol with adapter 2, puffs, Inhalation, Every 4 hours, PRN, directed., # 8.5 Gm, Refills 5, Tot. Refills 5, Maintenance, 01/24/21 15:40:00 EDT, Route to Pharmacy Electronically, [id number], [facility] [address] [place] [address], 168... Start Date: 01/24/21 Status: Ordered Probiotic Formula By Mouth, Daily, 0 Refills, Maintenance, 07/21/20 11:13:00 EST, Partial fill upon patient request if the prescription is for a schedule II opioid drug. Start Date: 07/21/20 Status: Ordered rosuvastatin 20 mg oral tablet 1 tablet, By Mouth, Daily, # 30 tablet, 2 Refills, [facility], 168, cm, 05/17/21 14:25:00 EST, Height, 94.5, kg, 12/05/20 15:50:00 EDT, Dry Weight Start Date: 05/18/21 Status: Ordered topiramate 100 mg oral tablet 1 tablet, By Mouth, 2 times a day, # 60 tablet, 5 Refills, Maintenance, 03/25/21 17:43:00 EDT, [facility] [address] [place] [address], 168, cm, 01/24/21 15:18:00 EDT, Height, 94.5, kg, 12/05/20 15:50:00 EDT, Dry Weight Start Date: 03/25/21 Status: Ordered Problem List Condition Effective Dates Status Health Status Inform ant Anxiety(Confirmed) Active Asthma(Confirmed) Active Degenerative disc disease(Confirmed) Active Depression(Confirmed) Active Esophageal reflux(Confirmed) Active Hyperglycemia(Confirmed) Active Hyperlipidemia(Confirmed) Active Hypertension(Confirmed) Active Hypothyroid(Confirmed) Active IBS - Irritable bowel syndrome(Confirmed) Active Migraine(Confirmed) Active Radiculopathy(Confirmed) Active Obese class I(Confirmed) Active Occipital neuralgia(Confirmed) Active Rheumatoid arthritis(Confirmed) Active Tachycardia(Confirmed) Active Social History Social History Type Response Smoking Status Former smoker; Tobac co user in household: No; Type: Cigarettes entered on: 04/24/15 Sex Female
--- OUTSIDE RECORDS SUMMARY | 2024-02-16 15:49 | XMS_ITS | Continuity of Care Document ---
Author Organization [facility] Address [address] [place] [address]- Care Team Providers Care Sculpture Instructor Name Role Phone Cornell VALLECILLO, Miriam Sharpe Primary Care Physician [place] [facility] [place]21 - 08/24/21 [facility] [address] [place] [address]- Attending Physician: Socorro Koch Admitting Physician: Admtr, Socorro Referring Physician: Admtr, Ar8 Allergies, Adverse Reactions, Alerts Substance Reaction Severity Status codeine C/O: itching Active sulfa drugs Hives Active morphine N/V, itching, migraines Acti ve Vicodin itching, N/V, migraines Acti ve Demerol [...] days, # 1 kit, 5 Refills, Maintenance, 06/11/21 16:54:00 EST, [facility], 168, cm, 05/17/21 14:25:00 EST, Height, 94.5, kg, 12/05/20 15:50:00 EDT, Dry Weight Start Date: 06/11/21 Status: Ordered albuterol 0.083% inhalation solution 3 mL = 2.5 mg, Inhalation, Every 6 hours, PRN for wheezing/shortness of breath, # 60 each, 5 Refills, Maintenance, 12/03/20 14:36:00 EDT, Solution, [facility] [address] [place] [address], Partial fill upon patient request if the prescription is... Start Date: 12/03/20 Status: Ordered allopurinol 300 mg oral tablet 300 mg, 1, tablet, By Mouth, Daily, # 30 tablet, Refills 0, Maintenance, 09/30/19 15:52:00 EDT Start Date: 09/30/19 Status: Ordered budesonide 1 mg/2 mL inhalation suspension 1 vials, Inhalation, Daily, # 60 mL, 5 Refills, Maintenance, 11/10/20 12:54:00 EDT, [facility] [address] [place] [address], [place], 168, cm, 10/30/20 10:27:00 EDT, Height, 98.5, kg, 08/03/20 15:21:00 EST, Dry Weight Start Date: 11/10/20 Status: Ordered hydrochlorothiazide 25 mg oral tablet 1, tablet, By Mouth, Daily, # 30 tablet, Refills 5, Route to Pharmacy Electronically, [facility] [place], 168, cm, 01/24/21 15:18:00 EDT, Height, 94.5, [...] EMPTY stomach., # 90 tablet, 1 Refills, [facility], 168, cm, 01/24/21 15:18:00 EDT, Height, 94.5, [...] Replace Required Details, Route to Pharmacy Electronically, [facility] - [place],... Start Date: 12/05/20 Status: Ordered omeprazole 40 [...] tablet, 1 Refills, Maintenance, 03/27/21 8:34:00 EDT, [facility] [place] [facility], [place], 168, cm, 01/24/21 15:18:00 EDT, Height, 94.5, kg, 12/05/20 15:50:00 EDT, D... Start Date: 03/27/21 Status: Ordered ProAir HFA 90 mcg/inh inhalation aerosol with adapter 2, puffs, Inhalation, Every 4 hours, PRN, directed., # 8.5 Gm, Refills 5, Tot. Refills 5, Maintenance, 01/24/21 15:40:00 EDT, Route to Pharmacy Electronically, [id number], [facility] [address] [place] [address], 168... Start Date: 01/24/21 Status: Ordered Probiotic Formula By Mouth, Daily, 0 Refills, Maintenance, 07/21/20 11:13:00 EST, Partial fill upon patient request if the prescription is for a schedule II opioid drug. Start Date: 07/21/20 Status: Ordered rosuvastatin 20 mg oral tablet 1 tablet, By Mouth, Daily, # 30 tablet, 0 Refills, [facility], 168, cm, 05/17/21 14:25:00 EST, Height, 94.5, kg, 12/05/20 15:50:00 EDT, Dry Weight Start Date: 08/23/21 Status: Ordered topiramate 100 mg oral tablet 1 tablet, By Mouth, 2 times a day, # 60 tablet, 5 Refills, Maintenance, 03/25/21 17:43:00 EDT, [facility] # - [place], [place], 168, cm, 01/24/21 15:18:00 EDT, Height, 94.5, [...]
--- OUTSIDE RECORDS SUMMARY | 2024-02-16 15:50 | XMS_ITS | Continuity of Care Document ---
Author Organization [facility] ter Address [address] [place] [address]- Care Team Providers Care Twist Packer Name Role Phone Estella BRADSHAW, Danielle Dawkins Primary Care Physician En[place] [facility] [place] Date(s): 06/07/19 - 06/07/[address] [address]- [facility] Attending Physician: Not on Staff, Attending MD Allergies, Adverse Reactions, Alerts Substance Reaction [...] Dry Weight Start Date: 06/07/19 Status: Ordered hydrochlorothiazide 12.5 mg oral tablet [...] 2 Refills, Soft Stop, 06/07/19 14:27:00 EST, [facility] [place], 168, cm, 06/07/19 13:13:00 EST, Height, 116, kg, 06/03/19 14:55:00 EST, Dry Weight Start Date: 06/07/19 Status: Ordered ProAir HFA 90 mcg/inh inhalation aerosol with adapter 2, puffs, Inhalation, Every 4 hours, PRN, # 8.5 Gm, Refills 0, Tot. Refills 0, Maintenance, 05/28/19 14:58:00 EST, Route to Pharmacy Electronically, [id number], [facility], 165, cm, 02/22/19 12:57:00 EDT, Brett... Start Date: 05/28/19 Status: Ordered propranolol 80 mg oral capsule, extended release 1 capsule = 80 mg, By Mouth, Daily in AM, 0 Refills, Maintenance, 07/07/15 12:30:42 Start Date: 07/07/15 Status: Ordered topiramate 25 mg oral tablet [...]
--- OUTSIDE RECORDS SUMMARY | 2024-02-16 15:50 | XMS_ITS | Continuity of Care Document ---
Author Organization [facility] Address [address] [facility], [address] Floor, [address] [place] [address]- Care Team Providers Care Ornamental Plasterer Helper Name Role Phone Cornell VALLECILLO, Miriam Sharpe Primary Care Physician Encounter [facility] [place] Date(s): 07/27/20 - 08/26/20 [facility] [address], [address], [address] [place] [address]- Allergies, Adverse Reactions, Alerts Substance Reaction Severity [...] kit, 5 Refills, Maintenance, 07/10/20 9:56:00 EST, [facility], 167.6, cm, 06/06/20 14:32:00 EST, Height, 102.1, kg, 04/11/20 6:08:00 EST, Dry Weight Start Date: 07/10/20 Status: Ordered albuterol 0.083% inhalation solution 3 mL = 2.5 mg, Inhalation, Every 6 hours, PRN for wheezing/shortness of breath, # 60 each, 0 Refills, Maintenance, 07/21/20 11:30:00 EST, Solution, [facility], [place], Partial fill upon patient request if the prescription is... Start Date: 07/21/20 Status: Ordered allopurinol 300 mg oral tablet 300 mg, 1, tablet, By Mouth, Daily, # 30 tablet, Refills 0, Maintenance, 09/30/19 15:52:00 EDT Start Date: 09/30/19 Status: Ordered budesonide 1 mg/2 mL inhalation suspension 2 mL = 1 mg, Neb, Daily, # 60 mL, 2 Refills, Maintenance, 07/21/20 11:31:00 EST, Suspension, [facility], [place], Partial fill upon patient request if the prescription is for a schedule II opioid drug., 167.6, cm, 07/21/20 11... Start Date: 07/21/20 Status: Ordered busPIRone 7.5 mg oral tablet 1 tablet, By Mouth, 2 times a day, # 60 tablet, 5 Refills, Maintenance, 03/17/20 14:27:00 EDT, [facility], 167.64, cm, 02/07/20 13:13:00 EDT, Height, 106.4, kg, 12/14/19 17:54:00 EDT, Dry Weight Start Date: 03/17/20 Status: Ordered hydrochlorothiazide 25 mg oral tablet 25 mg, 1, tablet, By Mouth, Daily, # 30 tablet, Refills 5, Tot. Refills 5, Maintenance, 08/07/20 8:58:00 EST, Route to Pharmacy Electronically, [facility], [place], 168, cm,08/03/20 15:21:00 EST, Height, 98.5, kg, [...] tablet, 1 Refills, Maintenance, 04/20/20 16:15:00 EST, [facility] [address] [place] [address], 167.6, cm, 04/11/20 6:08:00 EST, Height, 102.1, kg, 04/11/20 6:08:00 EST, Dry We... Start Date: 04/20/20 Status: Ordered lisinopril 5 mg oral tablet 1, tablet, By Mouth, Daily, # 30 tablet, Refills 2, Tot. Refills 0, Maintenance, 07/14/20 14:59:00 EST, Route to Pharmacy Electronically, [facility], 167.6, cm, 06/06/20 14:32:00 EST, Height, 102.1, kg, 04/11/20 6:08:00 EST, Dry Weight Start Date: 07/14/20 Status: Ordered multivitamin Lipotropic with Multivitamins oral [...] tablet, 0 Refills, Maintenance, 05/19/20 8:29:00 EST, [facility], 167.6, cm, 05/09/20 16:10:00 EST, Height, 102.1, kg, 04/11/20 6:08:00 EST, Dry Weight Start Date: 05/19/20 Status: Ordered ProAir HFA 90 mcg/inh inhalation aerosol with adapter 2, puffs, Inhalation, Every 4 hours, PRN, directed., # 8.5 Gm, Refills 2, Tot. Refills 2, Maintenance, 08/16/20 11:56:00 EST, Route to Pharmacy Electronically, [id number], [facility] [address] [place] [address], 168... Start Date: 08/16/20 Status: Ordered Probiotic Formula By Mouth, Daily, 0 Refills, Maintenance, 07/21/20 11:13:00 EST, Partial fill upon patient request if the prescription is for a schedule II opioid drug. Start Date: 07/21/20 Status: Ordered rosuvastatin 20 mg oral capsule 1 capsule = 20 mg, By Mouth, Daily, # 30 capsule, 2 Refills, Maintenance, 07/14/20 12:02:00 EST, Capsule, [facility], [place], Partial fill upon patient request if the prescription is for a schedule II opioid drug., 167.6, cm... Start Date: 07/14/20 Status: Ordered Singulair 10 mg oral tablet 10 mg, 1, tablet, By Mouth, Daily, # 30 tablet, Refills 5, Tot. Refills 5, Maintenance, 06/07/20 13:22:00 EST, Route to Pharmacy Electronically, [facility] [address] [place] [address], Partialfill upon patient request if the prescription is fo... Start Date: 06/07/20 Status: Ordered Topamax 100 mg oral tablet 1 tablet = 100 mg, By Mouth, 2 times a day, # 60 tablet, 5 Refills, Maintenance, 07/27/20 11:36:00 EST, Tablet, [facility], [place], 167.6, cm, 07/21/20 11:11:00 EST, Height, 102.1, kg, 04/11/20 6:08:00 EST, Dry Weight Start Date: 07/27/20 Stop Date: 01/23/21 Status: Ordered Zofran 4 mg oral tablet 1 tablet = 4 mg, By Mouth, Every 8 hours, PRN as needed for nausea/vomiting, # 15 tablet, 0 Refills, Maintenance, 08/03/20 15:17:00 EST, Tablet, [facility], [place], Partialfill upon patient request if the prescription [...]
--- OUTSIDE RECORDS SUMMARY | 2024-02-16 15:50 | XMS_ITS | Continuity of Care Document ---
Author Organization [facility] Address [address] [place] [address] Dri ve, [address] [place] [address]- Care Team Providers Care Correctional Casework Specialist Name Role Phone Miriam Sarabia MD Primary Care Physician Encounter [facility] [place] Date(s): 05/01/20 - 05/31/20 [facility] [address] [place] [address] Drive, [address] [place], [place] [address] Allergies, Adverse Reactions, Alerts Substance Reaction Severity [...] kit, 5 Refills, Maintenance, 02/08/20 9:40:00 EDT, [facility], 167.64, cm, 02/07/20 13:13:00 EDT, Height, 106.4, kg, 12/14/19 17:54:00 EDT, Dry Weight Start Date: 02/08/20 Status: Ordered allopurinol 300 mg oral tablet 300 mg, 1, tablet, By Mouth, Daily, # 30 tablet, Refills 0, Maintenance, 09/30/19 15:52:00 EDT Start Date: 09/30/19 Status: Ordered atorvastatin 80 mg oral tablet 1 tablet = 80 mg, By Mouth, Daily, # 90 tablet, 0 Refills, Maintenance, 05/09/20 11:25:00 EST, Tablet, [facility], [place], 167.6, cm, 04/11/20 6:08:00 EST, Height, 102.1, kg, 04/11/20 6:08:00 EST, Dry Weight Start Date: 05/09/20 Status: Ordered busPIRone 7.5 mg oral tablet 1 tablet, By Mouth, 2 times a day, # 60 tablet, 5 Refills, Maintenance, 03/17/20 14:27:00 EDT, [facility], 167.64, cm, 02/07/20 13:13:00 EDT, Height, 106.4, kg, 12/14/19 17:54:00 EDT, Dry Weight Start Date: 03/17/20 Status: Ordered hydrochlorothiazide 25 mg oral tablet 25 mg, 1, tablet, By Mouth, Daily, # 30 tablet, Refills 2, Tot. Refills 2, Maintenance, 11/04/19 9:33:00 EDT, Route to Pharmacy Electronically, [facility] [address] [place] [address], 168, cm, 11/03/19 14:03:00 EDT, Height, 116, [...] Maintenance, 04/20/20 16:15:00 EST, [facility], [place], 167.6, cm, 04/11/20 6:08:00 EST, Height, 102.1, kg, 04/11/20 6:08:00 EST, Dry We... Start Date: 04/20/20 Status: Ordered lisinopril 5 mg oral tablet 5 mg, 1, tablet, By Mouth, Daily, # 30 tablet, Refills 5, Tot. Refills 5, Maintenance, 02/07/20 13:48:00 EDT, Route to Pharmacy Electronically, [facility] [place] [address] [place] [address], [place], 167.64, cm, 02/07/20 13:13:00 EDT, Height, 106.4, kg, 12/13/... Start Date: 02/07/20 Status: Ordered Multi Vitamin+ 0 Refills, Maintenance, 07/21/19 15:30:00 EST Start Date: 07/21/19 Status: Ordered Neurontin 300 mg oral capsule 300 mg, 1, capsule, By Mouth, 3 times a day, # 30 tablet, Refills 0, Tot. Refills 0, Maintenance, 04/11/20 15:24:00 EST, Route to Pharmacy Electronically, [facility] [address] [place] [address], 167.6, cm, 04/11/20 6:08:00 EST, Height, 102.1, k... Start Date: 04/11/20 Status: Ordered ondansetron 8 mg oral tablet 1 tablet, By Mouth, 2 times a day, PRN NEEDED FOR NAUSEA/ VOMITING, # 30 tablet, 0 Refills, Maintenance, 05/19/20 8:29:00 EST, [facility], 167.6, cm, 05/09/20 16:10:00 EST, Height, 102.1, kg, 04/11/20 6:08:00 EST, Dry Weight Start Date: 05/19/20 Status: Ordered oxyCODONE 10 mg oral tablet 1 tablet = 10 mg, By Mouth, Every 8 hours, PRN as needed for pain, # 21 tablet, 0 Refills, Maintenance, 05/02/20 17:15:00 EST, Tablet, [facility] [address] [place] [address], [place], Partial fill uponpatient request, 167.6, cm, 04/11/20 6:08:00 EST, H... Start Date: 05/02/20 Stop Date: 05/09/20 Status: Ordered oxyCODONE 5 mg oral tablet 5 mg, 1, tablet, By Mouth, Every 8 hours, PRN, # 21 tablet, Refills 0, Tot. Refills 0, Maintenance,as needed for pain, 05/08/20 16:01:00 EST, Route to Pharmacy Electronically, [facility] [address] [place] [address], Partial fill upon patient r... Start Date: 05/08/20 Status: Ordered ProAir HFA 90 mcg/inh inhalation aerosol with adapter 2, puffs, Inhalation, Every 4 hours, PRN, directed., # 8.5 Gm, Refills 0, Tot. Refills 0, Maintenance, 05/29/20 8:22:00 EST, Route to Pharmacy Electronically, [id number],[facility] [address] [place] [address], 167.... Start Date: 05/29/20 Status: Ordered Pulmicort Flexhaler 180 mcg 1 puffs, Inhalation, 2 times a day, # 1 each, 0 Refills, Maintenance, 11/04/19 11:17:00 EDT, Powder, [facility] [address] [place] [address], 1 puffs Inhalation 2 times a day, 168, cm, 11/03/19 14:03:00 EDT, Height, 116, kg, 06/03/19 14:55:00 EST, Dry Weight Start Date: 11/04/19 Status: Ordered Topamax 100 mg oral tablet 1 tablet = 100 mg, By Mouth, 2 times a day, # 60 tablet, 5 Refills, Maintenance, 01/27/20 16:14:00 EDT, Tablet, [facility] [address] [place] [address], 167.64, cm, 01/19/20 11:34:00 EDT, Height, 106.4, kg, 12/14/19 17:54:00 EDT, Dry Weight Start Date: 01/27/20 Stop Date: 07/25/20 Status: Ordered Valium 5 mg oral tablet 5 mg, 1, tablet, By Mouth, 3 times a day, PRN, # 30 tablet, Refills 0, Tot. Refills 0, Maintenance,Spasm, 04/11/20 15:24:00 EST, Route to Pharmacy Electronically, [facility] [address] [place] [address], 167.6, cm, 04/11/20 6:08:00 EST, Height,... Start Date: 04/11/20 Status: Ordered Problem List Condition Effective Dates [...]
--- OUTSIDE RECORDS SUMMARY | 2024-02-16 15:50 | XMS_ITS | Continuity of Care Document ---
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 Warehouse Manager Name Role Phone Cornell VALLECILLO, Miriam Sharpe Primary Care Physician Encounter [facility] [place] Date(s): 07/26/19 - 08/05/19 [facility] [address], [address], [address] [place] [address]- [facility] Attending Physician: Socorro Koch Admitting Physician: Socorro Koch Referring Physician: AdmtrSocorro Allergies, Adverse Reactions, Alerts Substance Reaction Severity [...] Daily, # 30 tablet, 0 Refills, Maintenance, 07/16/19 10:09:00 EST, [facility], 168, cm, 06/14/19 9:12:00 EST, Height, 116, kg, 06/03/19 14:55:00 EST, Dry Weight Start Date: 07/16/19 Status: Ordered busPIRone 7.5 mg oral tablet [...] mg, By Mouth, Daily, # 30 tablet, 5 Refills, Maintenance, 07/28/19 12:49:00 EST, Tablet, [facility] [place], 168, cm, 07/26/19 14:34:00 EST, Height, 116, kg, 06/03/1914:55:00 EST, Dry Weight Start Date: 07/28/19 Status: Ordered lansoprazole 30 mg oral enteric [...] Dry Weight Start Date: 06/07/19 Status: Ordered meloxicam 15 mg oral tablet 1 tablet = 15 mg, By Mouth, Daily, # 90 tablet, 0 Refills, Maintenance, 07/21/19 15:29:00 EST, Tablet Start Date: 07/21/19 Status: Ordered Multi Vitamin+ 0 Refills, Maintenance, 07/21/19 15:30:00 EST Start Date: 07/21/19 Status: Ordered ProAir HFA 90 mcg/inh inhalation aerosol with adapter 2, puffs, Inhalation, Every 4 hours, PRN, # 8.5 Gm, Refills 5, Tot. Refills 5, Maintenance, 07/28/19 12:49:00 EST, Route to Pharmacy Electronically, [id number], [facility] [place], 168, cm, 07/26/19 14:34:00... Start Date: 07/28/19 Status: Ordered topiramate 25 mg oral tablet 2 tablet = 50 mg, By Mouth, 2 times a day, dose increase, # 120 tablet, 5 Refills, Maintenance, 07/26/19 14:36:00 EST, Tablet, [facility] [place], 168, cm, 07/26/19 14:34:00 EST, Height, 116, kg, 06/03/19 14:55:00 EST, Dry Weight Start Date: 07/26/19 Stop Date: 01/22/20 Status: Ordered Zofran 8 mg oral tablet [...]
--- OUTSIDE RECORDS SUMMARY | 2024-02-16 15:50 | XMS_ITS | Continuity of Care Document ---
Author Organization [facility] Address [address] [place] [address]- Care Team Providers Care Powder Worker Tnt Name Role Phone Cornell VALLECILLO, Miriam Sharpe Primary Care Physician Encounter [facility] [place] Date(s): 05/26/20 - 08/27/20 [facility] [address] [place] [id number] Attending Physician: Lucho Myesr MD Admitting Physician: Lucho Myers MD Referring Physician: Miriam Sarabia MD Allergies, Adverse Reactions, Alerts Substance Reaction [...] kit, 5 Refills, Maintenance, 07/10/20 9:56:00 EST, [facility], 167.6, cm, 06/06/20 14:32:00 EST, Height, 102.1, kg, 04/11/20 6:08:00 EST, Dry Weight Start Date: 07/10/20 Status: Ordered albuterol 0.083% inhalation solution 3 mL = 2.5 mg, Inhalation, Every 6 hours, PRN for wheezing/shortness of breath, # 60 each, 0 Refills, Maintenance, 07/21/20 11:30:00 EST, Solution, [facility] [address] [place] [address], [place], Partial fill upon patient request if the prescription is... Start Date: 07/21/20 Status: Ordered allopurinol 300 mg oral tablet 300 mg, 1, tablet, By Mouth, Daily, # 30 tablet, Refills 0, Maintenance, 09/30/19 15:52:00 EDT Start Date: 09/30/19 Status: Ordered budesonide 1 mg/2 mL inhalation suspension 2 mL = 1 mg, Neb, Daily, # 60 mL, 2 Refills, Maintenance, 07/21/20 11:31:00 EST, Suspension, [facility] [address] [place] [address], [place], Partial fill upon patient request if the prescription is for a schedule II opioid drug., 167.6, cm, 07/21/20 11... Start Date: 07/21/20 Status: Ordered busPIRone 7.5 mg oral tablet 1 tablet, By Mouth, 2 times a day, # 60 tablet, 5 Refills, Maintenance, 03/17/20 14:27:00 EDT, [facility], 167.64, cm, 02/07/20 13:13:00 EDT, Height, 106.4, kg, 12/14/19 17:54:00 EDT, Dry Weight Start Date: 03/17/20 Status: Ordered hydrochlorothiazide 25 mg oral tablet 25 mg, 1, tablet, By Mouth, Daily, # 30 tablet, Refills 5, Tot. Refills 5, Maintenance, 08/07/20 8:58:00 EST, Route to Pharmacy Electronically, [facility], [place], 168, cm,08/03/20 15:21:00 EST, Height, 98.5, kg, [...] tablet, 1 Refills, Maintenance, 04/20/20 16:15:00 EST, [facility] [address] [place] [address], 167.6, cm, 04/11/20 6:08:00 EST, Height, 102.1, kg, 04/11/20 6:08:00 EST, Dry We... Start Date: 04/20/20 Status: Ordered lisinopril 5 mg oral tablet 1, tablet, By Mouth, Daily, # 30 tablet, Refills 2, Tot. Refills 0, Maintenance, 07/14/20 14:59:00 EST, Route to Pharmacy Electronically, [facility], 167.6, cm, 06/06/20 14:32:00 EST, Height, 102.1, [...] tablet, 0 Refills, Maintenance, 05/19/20 8:29:00 EST, [facility], 167.6, cm, 05/09/20 16:10:00 EST, Height, 102.1, kg, 04/11/20 6:08:00 EST, Dry Weight Start Date: 05/19/20 Status: Ordered ProAir HFA 90 mcg/inh inhalation aerosol with adapter 2, puffs, Inhalation, Every 4 hours, PRN, directed., # 8.5 Gm, Refills 2, Tot. Refills 2, Maintenance, 08/16/20 11:56:00 EST, Route to Pharmacy Electronically, [id number], [facility] [address] [place] [address], 168... Start Date: 08/16/20 Status: Ordered Probiotic Formula By Mouth, Daily, 0 Refills, Maintenance, 07/21/20 11:13:00 EST, Partial fill upon patient request if the prescription is for a schedule II opioid drug. Start Date: 07/21/20 Status: Ordered rosuvastatin 20 mg oral capsule 1 capsule = 20 mg, By Mouth, Daily, # 30 capsule, 2 Refills, Maintenance, 07/14/20 12:02:00 EST, Capsule, [facility], [place], Partial fill upon patient request if the prescription is for a schedule II opioid drug., 167.6, cm... Start Date: 07/14/20 Status: Ordered Singulair 10 mg oral tablet 10 mg, 1, tablet, By Mouth, Daily, # 30 tablet, Refills 5, Tot. Refills 5, Maintenance, 06/07/20 13:22:00 EST, Route to Pharmacy Electronically, [facility] [address] [place] [address], [place], Partialfill upon patient request if the prescription is fo... Start Date: 06/07/20 Status: Ordered Topamax 100 mg oral tablet 1 tablet = 100 mg, By Mouth, 2 times a day, # 60 tablet, 5 Refills, Maintenance, 07/27/20 11:36:00 EST, Tablet, [facility], [place], 167.6, cm, 07/21/20 11:11:00 EST, Height, 102.1, kg, 04/11/20 6:08:00 EST, Dry Weight Start Date: 07/27/20 Stop Date: 01/23/21 Status: Ordered Zofran 4 mg oral tablet 1 tablet = 4 mg, By Mouth, Every 8 hours, PRN as needed for nausea/vomiting, # 15 tablet, 0 Refills, Maintenance, 08/03/20 15:17:00 EST, Tablet, [facility], [place], Partialfill upon patient request if the prescription [...]
--- OUTSIDE RECORDS SUMMARY | 2024-02-16 15:50 | XMS_ITS | Continuity of Care Document ---
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 Start Date: 01/03/20 Status: Ordered allopurinol 300 mg oral tablet 300 mg, 1, tablet, By Mouth, Daily, # 30 tablet, Refills 0, Maintenance, 09/30/19 15:52:00 EDT Start Date: 09/30/19 Status: Ordered atorvastatin 40 mg oral tablet 1 tablet, By Mouth, Daily, # 30 tablet, 0 Refills, Maintenance, 01/17/20 8:18:00 EDT, [facility] #[facility] [place], 167.64, cm, 12/14/19 17:50:00 EDT, Height, 106.4, kg, 12/14/19 17:54:00 EDT, Dry Weight Start Date: 01/17/20 Status: Ordered busPIRone 7.5 mg oral tablet 1 tablet, By Mouth, 2 times a day, # 60 tablet, 2 Refills, Maintenance, 12/08/19 12:54:00 EDT, [facility] [address] [place] [address], 167.64, cm, 12/06/19 15:16:00 EDT, Height, 104.55, kg, 12/06/19 15:16:00 EDT, Dry Weight Start Date: 12/08/19 Status: Ordered hydrochlorothiazide 25 mg oral tablet 25 mg, 1, tablet, By Mouth, Daily, # 30 tablet, Refills 2, Tot. Refills 2, Maintenance, 11/04/19 9:33:00 EDT, Route to Pharmacy Electronically, [facility] [address] [place] [address], 168, cm, 11/03/19 14:03:00 EDT, Height, 116, [...] Maintenance, 01/17/20 8:19:00 EDT, [facility] # [facility] [place], 167.64, cm, 12/14/19 17:50:00EDT, Height, 106.4, kg, 12/14/19 17:54:00 EDT, Dry... Start Date: 01/17/20 Status: Ordered lisinopril 5 mg oral tablet 5 mg, 1, tablet, By Mouth, Daily, # 30 tablet, Refills 2, Tot. Refills 2, Maintenance, 11/04/19 9:34:00 EDT, Route to Pharmacy Electronically, [facility] [place], 168, cm, 11/03/19 14:03:00 EDT, Height, 116, kg, 06/03/19 14:55:00 EST,... Start Date: 11/04/19 Status: Ordered Medrol Dosepak 4 mg oral tablet See Instructions, 1 pack/packet By Mouth Daily 6 days, # 1 pack/packet, 0 Refills, Maintenance, 12/28/19 6:48:00 EDT, Tablet, [facility] [place], f/u with PCP if [...] 11/12/20 16:16:00 EDT, 10/13/19 16:15:00 EDT, Tablet, [facility] [place], tried sumatriptan , eletriptan , ri... Start Date: 10/13/19 Stop Date: 11/12/20 Status: Ordered ProAir HFA 90 mcg/inh inhalation aerosol with adapter 2, puffs, Inhalation, Every 4 hours, PRN, # 8.5 Gm, Refills 5, Tot. Refills 0, Maintenance, 10/27/19 11:07:00 EDT, Route to Pharmacy Electronically, [id number], [facility], 168, cm, 10/19/19 8:27:00 EDT, Height... Start Date: 10/27/19 Status: Ordered Pulmicort Flexhaler 180 mcg 1 puffs, Inhalation, 2 times a day, # 1 each, 0 Refills, Maintenance, 11/04/19 11:17:00 EDT, Powder, [facility] [place], 1 puffs Inhalation 2 times a day, 168, cm, 11/03/19 14:03:00 EDT, Height, 116, kg, 06/03/19 14:55:00 EST, Dry Weight Start Date: 11/04/19 Status: Ordered tiZANidine 4 mg oral tablet 4 mg, 1, tablet, By Mouth, 3 times a day, # 90 tablet, Refills 0, Tot. Refills 0, Maintenance, 12/14/19 15:29:00 EDT, Route to Pharmacy Electronically, [facility] [place], 167.64, cm, 12/14/19 9:02:00 EDT, Height, 106.4, kg, 12/14/19... Start Date: 12/14/19 Status: Ordered topiramate 25 mg oral tablet 3 tablet = 75 mg, By Mouth, 2 times a day, dose increase, # 180 tablet, 5 Refills, Maintenance, 10/13/19 16:12:00 EDT, Tablet, [facility] [place], 168, cm, [...] neuralgia(Confirmed) Active Rheumatoid arthritis(Confirmed) Active Tachycardia(Confirmed) Active Vital Signs Most recent to oldest [Reference Range]: 1 Height 167.64 cm (01/19/20 11:34 AM) Weight 106.4 kg (01/19/20 11:34 AM) Body Mass Index [18.5-24.99] 37.86 *>HHI* (01/19/20 11:34 AM) Social History Social History Type Response Smoking Status Former smoker; Tobac co user in household: No; Type: Cigarettes entered on: 04/24/15 Sex Female
--- OUTSIDE RECORDS SUMMARY | 2024-02-16 15:50 | XMS_ITS | Continuity of Care Document ---
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 Name Role Phone Cornell VALLECILLO, Miriam Sharpe Primary Care Physician Encounter [facility] [place] [place] Date(s): 07/10/21 - 08/24/21 [facility] [address] [place] [id number]- Attending Physician: Shilpa Spencer MD Admitting Physician: Shilpa Spencer MD Allergies, Adverse Reactions, Alerts Substance Reaction [...] Recorded tetanus/diphtheria/pertussis, acel(Tdap) 10/20/15 Given tetanus/diphtheria/pertussis, acel(Tdap) 1/3/12 Recorded pneumococcal 23-valent vaccine 05/05/09 Given influ virus vac, H1N1, inactive(oldterm) 04/20/09 Recorded Medications Aimovig SureClick Autoinjector-aooe 140 mg/mL subcutaneous solution = 140 mg, Subcutaneous Infusion, Every 28 days, # 1 kit, 5 Refills, Maintenance, 06/11/21 16:54:00 EST, [facility], 168, cm, 05/17/21 14:25:00 EST, Height, 94.5, kg, 12/05/20 15:50:00 EDT, Dry Weight Start Date: 06/11/21 Status: Ordered albuterol 0.083% inhalation solution 3 mL = 2.5 mg, Inhalation, Every 6 hours, PRN for wheezing/shortness of breath, # 60 each, 5 Refills, Maintenance, 12/03/20 14:36:00 EDT, Solution, [facility] #[address] [place] [address], Partial fill upon patient request if the prescription is... Start Date: 12/03/20 Status: Ordered allopurinol 300 mg oral tablet 300 mg, 1, tablet, By Mouth, Daily, # 30 tablet, Refills 0, Maintenance, 09/30/19 15:52:00 EDT Start Date: 09/30/19 Status: Ordered budesonide 1 mg/2 mL inhalation suspension 1 vials, Inhalation, Daily, # 60 mL, 5 Refills, Maintenance, 11/10/20 12:54:00 EDT, [facility] [address] [place] [address], [place], 168, cm, 10/30/20 10:27:00 EDT, Height, 98.5, kg, 08/03/20 15:21:00 EST, Dry Weight Start Date: 11/10/20 Status: Ordered hydrochlorothiazide 25 mg oral tablet 1, tablet, By Mouth, Daily, # 30 tablet, Refills 5, Route to Pharmacy Electronically, [facility], 168, cm, 01/24/21 15:18:00 EDT, [...] EMPTY stomach., # 90 tablet, 1 Refills, [facility], 168, cm, 01/24/21 15:18:00 EDT, Height, [...] Replace Required Details, Route to Pharmacy Electronically, [facility],... Start Date: 12/05/20 Status: Ordered omeprazole 40 [...] tablet, 1 Refills, Maintenance, 03/27/21 8:34:00 EDT, [facility] [place] [facility], [place], 168, cm, 01/24/21 15:18:00 EDT, Height, 94.5, kg, 12/05/20 15:50:00 EDT, D... Start Date: 03/27/21 Status: Ordered ProAir HFA 90 mcg/inh inhalation aerosol with adapter 2, puffs, Inhalation, Every 4 hours, PRN, directed., # 8.5 Gm, Refills 5, Tot. Refills 5, Maintenance, 01/24/21 15:40:00 EDT, Route to Pharmacy Electronically, [id number], [facility] [address] [place] [address], 168... Start Date: 01/24/21 Status: Ordered Probiotic Formula By Mouth, Daily, 0 Refills, Maintenance, 07/21/20 11:13:00 EST, Partial fill upon patient request if the prescription is for a schedule II opioid drug. Start Date: 07/21/20 Status: Ordered rosuvastatin 20 mg oral tablet 1 tablet, By Mouth, Daily, # 30 tablet, 0 Refills, [facility], 168, cm, 05/17/21 14:25:00 EST, Height, 94.5, kg, 12/05/20 15:50:00 EDT, Dry Weight Start Date: 08/23/21 Status: Ordered topiramate 100 mg oral tablet 1 tablet, By Mouth, 2 times a day, # 60 tablet, 5 Refills, Maintenance, 03/25/21 17:43:00 EDT, [facility] [address] [place] [address], [place], 168, cm, 01/24/21 15:18:00 EDT, Height, 94.5, [...]
--- OUTSIDE RECORDS SUMMARY | 2024-02-16 15:50 | XMS_ITS | Continuity of Care Document ---
Author Organization [facility] Address [address] [facility], [address] d Floor, [address] [place] [id number]- Care Team Providers Care Clean Room Operator Name Role Phone Cornell VALLECILLO, Miriam Sharpe Primary Care Physician [place] [facility] [place](s): 10/13/19 - 10/20/19 [facility] [address] [place], 3rd Floor, [address] [place] [phone]- [facility] Attending Physician: Selina BRADSHAW, [facility] Referring Physician: Miriam Sarabia MD Allergies, Adverse [...] Given pneumococcal 23-valent vaccine 05/05/09 Given Medications albuterol 0.083% inhalation solution 3 mL = 2.5 mg, Inhalation, Every 6 hours, PRN for wheezing, # 25 each, 0 Refills, Maintenance, 10/01/19 8:22:00 EDT, Solution, [facility] [place], 168, cm, 10/01/19 8:15:00 EDT, Height, 116, kg, 06/03/19 14:55:00 EST, Dry Weight Start Date: 10/01/19 Status: Ordered allopurinol 300 mg oral tablet 300 mg, 1, tablet, By Mouth, Daily, # 30 tablet, Refills 0, Maintenance, 09/30/19 15:52:00 EDT Start Date: 09/30/19 Status: Ordered atorvastatin 40 mg oral tablet 1 tablet, By Mouth, Daily, # 30 tablet, 2 Refills, Maintenance, 09/08/19 11:34:00 EDT, [facility], 168, cm, 07/26/19 14:34:00 EST, Height, 116, kg, 06/03/19 14:55:00 EST, Dry Weight Start Date: 09/08/19 Status: Ordered Breo Ellipta 100 mcg-25 mcg/inh inhalation powder 1 puffs, Inhalation, Daily, # 30 each, 0 Refills, Maintenance, 10/15/19 8:27:00 EDT, Powder, [facility] [place], 1 puffs Inhalation Daily, 168, cm, 10/15/19 8:21:00 EDT, Height, 116,kg, 06/03/19 14:55:00 EST, Dry Weight Start Date: 10/15/19 Status: Ordered busPIRone 7.5 mg oral tablet 1 tablet, By Mouth, 2 times a day, # 60 tablet, 2 Refills, Maintenance, 08/25/19 11:42:00 EDT, [facility], 168, cm, 07/26/19 14:34:00 EST, Height, 116, kg, 06/03/19 14:55:00 EST, Dry Weight Start Date: 08/25/19 Status: Ordered hydrochlorothiazide 25 mg oral tablet 25 mg, 1, tablet, By Mouth, Daily, # 30 tablet, Refills 0, Tot. Refills 0, Maintenance, 10/01/19 8:22:00 EDT, Route to Pharmacy Electronically, [facility] [place], 168, cm, 10/01/19 8:15:00 EDT, Height, 116, kg, 06/03/19 14:55:00 EST,... Start Date: 10/01/19 Status: Ordered lansoprazole 30 mg oral enteric [...] Mouth, Daily, # 30 tablet, Refills 0, Tot. Refills 0, Maintenance, 10/15/19 8:27:00 EDT, Route to Pharmacy Electronically, [facility] [place], 168, cm, 10/15/19 8:21:00 EDT, Height, 116, kg, 06/03/19 14:55:00 EST,... Start Date: 10/15/19 Status: Ordered meloxicam 15 mg oral tablet [...] 11/12/20 16:16:00 EDT, 10/13/19 16:15:00 EDT, Tablet, [facility] [place], tried sumatriptan , eletriptan , ri... Start Date: 10/13/19 Stop Date: 11/12/20 Status: Ordered ProAir HFA 90 mcg/inh inhalation aerosol with adapter 2, puffs, Inhalation, Every 4 hours, PRN, # 8.5 Gm, Refills 5, Tot. Refills 5, Maintenance, 07/28/19 12:49:00 EST, Route to Pharmacy Electronically, [id number], [facility] [place], 168, [...]
--- OUTSIDE RECORDS SUMMARY | 2024-02-16 15:50 | XMS_ITS | Continuity of Care Document ---
Author Organization [facility] Address [address] [place] [phone]- Care Team Providers Care Lead Business Systems Analyst Name Role Phone Cornell VALLECILLO, Miriam Sharpe Primary Care Physician Encounter [facility] [place] Date(s): 07/05/21 - 08/04/21 [facility] [address] [place] [id number]- Allergies, Adverse Reactions, Alerts Substance Reaction Severity [...] kit, 5 Refills, Maintenance, 06/11/21 16:54:00 EST, [facility], 168, cm, 05/17/21 14:25:00 EST, Height, 94.5, kg, 12/05/20 15:50:00 EDT, Dry Weight Start Date: 06/11/21 Status: Ordered albuterol 0.083% inhalation solution 3 mL = 2.5 mg, Inhalation, Every 6 hours, PRN for wheezing/shortness of breath, # 60 each, 5 Refills, Maintenance, 12/03/20 14:36:00 EDT, Solution, [facility] [address] [place] [address], [place], Partial fill upon patient request if the prescription is... Start Date: 12/03/20 Status: Ordered allopurinol 300 mg oral tablet 300 mg, 1, tablet, By Mouth, Daily, # 30 tablet, Refills 0, Maintenance, 09/30/19 15:52:00 EDT Start Date: 09/30/19 Status: Ordered budesonide 1 mg/2 mL inhalation suspension 1 vials, Inhalation, Daily, # 60 mL, 5 Refills, Maintenance, 11/10/20 12:54:00 EDT, [facility], [place], 168, cm, 10/30/20 10:27:00 EDT, Height, 98.5, kg, 08/03/20 15:21:00 EST, Dry Weight Start Date: 11/10/20 Status: Ordered hydrochlorothiazide 25 mg oral tablet 1, tablet, By Mouth, Daily, # 30 tablet, Refills 5, Route to Pharmacy Electronically, [facility], 168, cm, 01/24/21 15:18:00 EDT, [...] EMPTY stomach., # 90 tablet, 1 Refills, [facility], 168, cm, 01/24/21 15:18:00 EDT, [...] Replace Required Details, Route to Pharmacy Electronically, [facility] [address] [place] [address],... Start Date: 12/05/20 Status: Ordered omeprazole 40 [...] tablet, 1 Refills, Maintenance, 03/27/21 8:34:00 EDT, [facility], [place], 168, cm, 01/24/21 15:18:00 EDT, Height, 94.5, kg, 12/05/20 15:50:00 EDT, D... Start Date: 03/27/21 Status: Ordered ProAir HFA 90 mcg/inh inhalation aerosol with adapter 2, puffs, Inhalation, Every 4 hours, PRN, directed., # 8.5 Gm, Refills 5, Tot. Refills 5, Maintenance, 01/24/21 15:40:00 EDT, Route to Pharmacy Electronically, [id number], [facility] [address] [place] [address], 168... Start Date: 01/24/21 Status: Ordered Probiotic Formula By Mouth, Daily, 0 Refills, Maintenance, 07/21/20 11:13:00 EST, Partial fill upon patient request if the prescription is for a schedule II opioid drug. Start Date: 07/21/20 Status: Ordered rosuvastatin 20 mg oral tablet 1 tablet, By Mouth, Daily, # 30 tablet, 2 Refills, [facility], 168, cm, 05/17/21 14:25:00 EST, Height, 94.5, kg, 12/05/20 15:50:00 EDT, Dry Weight Start Date: 05/18/21 Status: Ordered topiramate 100 mg oral tablet 1 tablet, By Mouth, 2 times a day, # 60 tablet, 5 Refills, Maintenance, 03/25/21 17:43:00 EDT, [facility] [address] [place] [address], [place], 168, cm, 01/24/21 15:18:00 EDT, Height, 94.5, [...]
--- OUTSIDE RECORDS SUMMARY | 2024-02-16 15:50 | XMS_ITS | Continuity of Care Document ---
Author Organization [facility] Address [address] [place] [phone]- Care Team Providers Care Child Care Assistant Name Role Phone Cornell VALLECILLO, Miriam Sharpe Primary Care Physician Encounter [facility] [place] Date(s): 10/06/20 - 12/22/20 [facility] [address] [place] [id number] Attending Physician: Triston Weber MD Admitting Physician: Triston Weber MD Allergies, Adverse Reactions, Alerts Substance Reaction [...] kit, 5 Refills, Maintenance, 07/10/20 9:56:00 EST, [facility], 167.6, cm, 06/06/20 14:32:00 EST, Height, 102.1, kg, 04/11/20 6:08:00 EST, Dry Weight Start Date: 07/10/20 Status: Ordered albuterol 0.083% inhalation solution 3 mL = 2.5 mg, Inhalation, Every 6 hours, PRN for wheezing/shortness of breath, # 60 each, 5 Refills, Maintenance, 12/03/20 14:36:00 EDT, Solution, [facility] [address] [place] [address], [place], Partial fill upon patient request if the prescription is... Start Date: 12/03/20 Status: Ordered allopurinol 300 mg oral tablet 300 mg, 1, tablet, By Mouth, Daily, # 30 tablet, Refills 0, Maintenance, 09/30/19 15:52:00 EDT Start Date: 09/30/19 Status: Ordered budesonide 1 mg/2 mL inhalation suspension 1 vials, Inhalation, Daily, # 60 mL, 5 Refills, Maintenance, 11/10/20 12:54:00 EDT, [facility] [address] [place] [address], [place], 168, cm, 10/30/20 10:27:00 EDT, Height, 98.5, kg, 08/03/20 15:21:00 EST, Dry Weight Start Date: 11/10/20 Status: Ordered busPIRone 7.5 mg oral tablet 1 tablet, By Mouth, 2 times a day, # 60 tablet, 2 Refills, Maintenance, 12/13/20 15:52:00 EDT, [facility], 168, cm, 12/05/20 15:50:00 EDT, Height, 94.5, kg, 12/05/20 15:50:00 EDT, Dry Weight Start Date: 12/13/20 Status: Ordered hydrochlorothiazide 25 mg oral tablet 25 mg, 1, tablet, By Mouth, Daily, # 30 tablet, Refills 5, Tot. Refills 5, Maintenance, 08/07/20 8:58:00 EST, Route to Pharmacy Electronically, [facility] [address] [place] [address], [place], 168, cm,08/03/20 15:21:00 EST, Height, 98.5, kg, [...] tablet, 1 Refills, Maintenance, 10/11/20 12:51:00 EDT, [facility] [address] [place] [address], [place], 168, cm, 09/29/20 8:43:00 EDT, Height, 98.5, kg, 08/03/20 15:21:00 EST, Dry Weight Start Date: 10/11/20 Status: Ordered lisinopril 5 mg oral tablet 1, tablet, By Mouth, Daily, # 30 tablet, Refills 2, Tot. Refills 2, Maintenance, 10/11/20 12:52:00 EDT, Route to Pharmacy Electronically, [facility] [address] [place] [address], [place], 168, cm, 09/29/20 8:43:00 EDT, Height, 98.5, [...] Replace Required Details, Route to Pharmacy Electronically, [facility] [address] [place] [address],... Start Date: 12/05/20 Status: Ordered omeprazole 40 [...] tablet, 0 Refills, Maintenance, 10/13/20 21:48:00 EDT, [facility] [address] [place] [address], 168, cm, 09/29/20 8:43:00 EDT, Height, 98.5, kg, 08/03/20 15:21:00 EST, D... Start Date: 10/13/20 Status: Ordered ProAir HFA 90 mcg/inh inhalation aerosol with adapter 2, puffs, Inhalation, Every 4 hours, PRN, directed., # 8.5 Gm, Refills 5, Tot. Refills 5, Maintenance, 09/26/20 12:18:00 EDT, Route to Pharmacy Electronically, [id number], [facility] [address] [place] [address], 168... Start Date: 09/26/20 Status: Ordered Probiotic Formula By Mouth, Daily, 0 Refills, Maintenance, 07/21/20 11:13:00 EST, Partial fill upon patient request if the prescription is for a schedule II opioid drug. Start Date: 07/21/20 Status: Ordered rosuvastatin 20 mg oral capsule 1 capsule = 20 mg, By Mouth, Daily, # 30 capsule, 5 Refills, Maintenance, 10/11/20 12:53:00 EDT, Capsule, [facility] [address] [place] [address], Partial fill upon patient request if the prescription is for a schedule II opioid drug., 168, cm,... Start Date: 10/11/20 Status: Ordered Singulair 10 mg oral tablet 10 mg, 1, tablet, By Mouth, Daily, # 30 tablet, Refills 5, Tot. Refills 5, Maintenance, 11/10/20 12:55:00 EDT, Route to Pharmacy Electronically, [facility] [address] [place] [address], Partialfill upon patient request if the prescription is fo... Start Date: 11/10/20 Status: Ordered Topamax 100 mg oral tablet 1 tablet = 100 mg, By Mouth, 2 times a day, # 60 tablet, 5 Refills, Maintenance, 07/27/20 11:36:00 EST, Tablet, [facility] [address] [place] [address], 167.6, cm, 07/21/20 11:11:00 EST, Height, 102.1, kg, 04/11/20 6:08:00 EST, Dry Weight Start Date: 07/27/20 Stop Date: 01/23/21 Status: Ordered Zofran 4 mg oral tablet 1 tablet = 4 mg, By Mouth, Every 8 hours, PRN as needed for nausea/vomiting, # 15 tablet, 0 Refills, Maintenance, 08/03/20 15:17:00 EST, Tablet, [facility] [place], [place], Partialfill upon patient request if the prescription [...]
--- OUTSIDE RECORDS SUMMARY | 2024-02-16 15:50 | XMS_ITS | Continuity of Care Document ---
Author Organization [facility] Address [address] [facility], 3r d Floor, [address] [place] [phone]- Care Team Providers Care Flexo Folder Gluer Operator Name Role Phone Cornell VALLECILLO, Miriam Sharpe Primary Care Physician Encounter [facility] R [id number] Date(s): 12/04/20 - 01/03/21 [facility] [address], 3[address], [address] [place] [id number] Attending Physician: Admtr, [place] Admitting Physician: Admtr, Ar8 Referring Physician: Admtr, Ar8 Allergies, Adverse Reactions, [...] kit, 5 Refills, Maintenance, 12/31/20 19:35:00 EDT, [facility], 168, cm, 12/05/20 15:50:00 EDT, Height, 94.5, kg, 12/05/20 15:50:00 EDT, Dry Weight Start Date: 12/31/20 Status: Ordered albuterol 0.083% inhalation solution 3 mL = 2.5 mg, Inhalation, Every 6 hours, PRN for wheezing/shortness of breath, # 60 each, 5 Refills, Maintenance, 12/03/20 14:36:00 EDT, Solution, [facility] [address] [place] [address], [place], Partial fill upon patient request if the prescription is... Start Date: 12/03/20 Status: Ordered allopurinol 300 mg oral tablet 300 mg, 1, tablet, By Mouth, Daily, # 30 tablet, Refills 0, Maintenance, 09/30/19 15:52:00 EDT Start Date: 09/30/19 Status: Ordered budesonide 1 mg/2 mL inhalation suspension 1 vials, Inhalation, Daily, # 60 mL, 5 Refills, Maintenance, 11/10/20 12:54:00 EDT, [facility] [address] [place] [address], [place], 168, cm, 10/30/20 10:27:00 EDT, Height, 98.5, kg, 08/03/20 15:21:00 EST, Dry Weight Start Date: 11/10/20 Status: Ordered busPIRone 7.5 mg oral tablet 1 tablet, By Mouth, 2 times a day, # 60 tablet, 2 Refills, Maintenance, 12/13/20 15:52:00 EDT, [facility], 168, cm, 12/05/20 15:50:00 EDT, Height, 94.5, kg, 12/05/20 15:50:00 EDT, Dry Weight Start Date: 12/13/20 Status: Ordered hydrochlorothiazide 25 mg oral tablet 25 mg, 1, tablet, By Mouth, Daily, # 30 tablet, Refills 5, Tot. Refills 5, Maintenance, 08/07/20 8:58:00 EST, Route to Pharmacy Electronically, [facility] [address] [place] [address], [place], 168, cm,08/03/20 15:21:00 EST, Height, 98.5, kg, [...] tablet, 1 Refills, Maintenance, 10/11/20 12:51:00 EDT, [facility] [address] [place] [address], [place], 168, cm, 09/29/20 8:43:00 EDT, Height, 98.5, kg, 08/03/20 15:21:00 EST, Dry Weight Start Date: 10/11/20 Status: Ordered lisinopril 5 mg oral tablet 1, tablet, By Mouth, Daily, # 30 tablet, Refills 2, Tot. Refills 2, Maintenance, 10/11/20 12:52:00 EDT, Route to Pharmacy Electronically, [facility] [address] [place] [address], [place], 168, cm, 09/29/20 8:43:00 EDT, Height, 98.5, [...] Replace Required Details, Route to Pharmacy Electronically, [facility] [address] [place] [address],... Start Date: 12/05/20 Status: Ordered omeprazole 40 [...] tablet, 0 Refills, Maintenance, 10/13/20 21:48:00 EDT, [facility] [address] [place] [address], [place], 168, cm, 09/29/20 8:43:00 EDT, Height, 98.5, kg, 08/03/20 15:21:00 EST, D... Start Date: 10/13/20 Status: Ordered ProAir HFA 90 mcg/inh inhalation aerosol with adapter 2, puffs, Inhalation, Every 4 hours, PRN, directed., # 8.5 Gm, Refills 5, Tot. Refills 5, Maintenance, 09/26/20 12:18:00 EDT, Route to Pharmacy Electronically, [id number], [facility] [address] [place] [address], 168... Start Date: 09/26/20 Status: Ordered Probiotic Formula By Mouth, Daily, 0 Refills, Maintenance, 07/21/20 11:13:00 EST, Partial fill upon patient request if the prescription is for a schedule II opioid drug. Start Date: 07/21/20 Status: Ordered rosuvastatin 20 mg oral capsule 1 capsule = 20 mg, By Mouth, Daily, # 30 capsule, 5 Refills, Maintenance, 10/11/20 12:53:00 EDT, Capsule, [facility] [address] [place] [address], Partial fill upon patient request if the prescription is for a schedule II opioid drug., 168, cm,... Start Date: 10/11/20 Status: Ordered Singulair 10 mg oral tablet 10 mg, 1, tablet, By Mouth, Daily, # 30 tablet, Refills 5, Tot. Refills 5, Maintenance, 11/10/20 12:55:00 EDT, Route to Pharmacy Electronically, [facility] [address] [place] [address], Partialfill upon patient request if the prescription is fo... Start Date: 11/10/20 Status: Ordered Topamax 100 mg oral tablet 1 tablet = 100 mg, By Mouth, 2 times a day, # 60 tablet, 5 Refills, Maintenance, 07/27/20 11:36:00 EST, Tablet, [facility] [address] [place] [address], 167.6, cm, 07/21/20 11:11:00 EST, Height, 102.1, kg, 04/11/20 6:08:00 EST, Dry Weight Start Date: 07/27/20 Stop Date: 01/23/21 Status: Ordered Zofran 4 mg oral tablet 1 tablet = 4 mg, By Mouth, Every 8 hours, PRN as needed for nausea/vomiting, # 15 tablet, 0 Refills, Maintenance, 08/03/20 15:17:00 EST, Tablet, [facility] [place], [place], Partialfill upon patient request if the [...]
--- OUTSIDE RECORDS SUMMARY | 2024-02-16 15:50 | XMS_ITS | Continuity of Care Document ---
Author Organization [facility] Address [address] [place] [id number]- Care Team Providers Care Learning Coordinator Name Role Phone Cornell VALLECILLO, Miriam Sharpe Primary Care Physician En[place] [facility] [place] Date(s): 12/09/19 - 01/08/[address] [address]- [facility] Attending Physician: AdmSocorro arvizu Admitting Physician: Admtr, [place] Referring Physician: Admtr, [...] 01/03/20 17:23:00 EDT, Route to Pharmacy Electronically, [facility], Partial fill upon patient request, 167.... Start Date: 01/03/20 Status: Ordered allopurinol 300 mg oral tablet 300 mg, 1, tablet, By Mouth, Daily, # 30 tablet, Refills 0, Maintenance, 09/30/19 15:52:00 EDT Start Date: 09/30/19 Status: Ordered atorvastatin 40 mg oral tablet 1 tablet, By Mouth, Daily, # 30 tablet, 0 Refills, Maintenance, 12/13/19 9:07:00 EDT, [facility] [place], 167.64, cm, 12/06/19 15:16:00 EDT, Height, 104.55, kg, 12/06/19 15:16:00 EDT, Dry Weight Start Date: 12/13/19 Status: Ordered busPIRone 7.5 mg oral tablet 1 tablet, By Mouth, 2 times a day, # 60 tablet, 2 Refills, Maintenance, 12/08/19 12:54:00 EDT, [facility] [place], 167.64, cm, 12/06/19 15:16:00 EDT, Height, 104.55, [...] ON AN EMPTY stomach., # 30 tablet, 0 Refills, Maintenance, 12/13/19 14:39:00 EDT, [facility] [place], 167.64, cm, 12/06/19 15:16:00 EDT, Height, 104.55, kg, 12/06/19 15:16:00 EDT, Dry Weight Start Date: 12/13/19 Status: Ordered lisinopril 5 mg oral tablet 5 mg, 1, tablet, By Mouth, Daily, # 30 tablet, Refills 2, Tot. Refills 2, Maintenance, 11/04/19 9:34:00 EDT, Route to Pharmacy Electronically, [facility] [place], 168, cm, 11/03/19 14:03:00 EDT, Height, 116, kg, 06/03/19 14:55:00 EST,... Start Date: 11/04/19 Status: Ordered Medrol Dosepak 4 mg oral tablet See Instructions, 1 pack/packet By Mouth Daily 6 days, # 1 pack/packet, 0 Refills, Maintenance, 12/28/19 6:48:00 EDT, Tablet, [facility] [place], f/u with [...] 11/12/20 16:16:00 EDT, 10/13/19 16:15:00 EDT, Tablet, [facility] [place], tried sumatriptan , eletriptan , ri... Start Date: 10/13/19 Stop Date: 11/12/20 Status: Ordered ProAir HFA 90 mcg/inh inhalation aerosol with adapter 2, puffs, Inhalation, Every 4 hours, PRN, # 8.5 Gm, Refills 5, Tot. Refills 0, Maintenance, 10/27/19 11:07:00 EDT, Route to Pharmacy Electronically, [id number], [facility], 168, cm, 10/19/19 8:27:00 EDT, Height... Start Date: 10/27/19 Status: Ordered Pulmicort Flexhaler 180 mcg 1 puffs, Inhalation, 2 times a day, # 1 each, 0 Refills, Maintenance, 11/04/19 11:17:00 EDT, Powder, [facility] [place], 1 puffs Inhalation 2 times a day, 168, cm, 11/03/19 14:03:00 EDT, Height, 116, kg, 06/03/19 14:55:00 EST, Dry Weight Start Date: 11/04/19 Status: Ordered tiZANidine 4 mg oral tablet 4 mg, 1, tablet, By Mouth, 3 times a day, # 90 tablet, Refills 0, Tot. Refills 0, Maintenance, 12/14/19 15:29:00 EDT, Route to Pharmacy Electronically, [facility] [place], 167.64, cm, 12/14/19 9:02:00 EDT, Height, 106.4, kg, 12/14/19... Start Date: 12/14/19 Status: Ordered topiramate 25 mg oral tablet 3 tablet = 75 mg, By Mouth, 2 times a day, dose increase, # 180 tablet, 5 Refills, Maintenance, 10/13/19 16:12:00 EDT, Tablet, [facility] [place], 168, [...]
--- OUTSIDE RECORDS SUMMARY | 2024-02-16 15:50 | XMS_ITS | Continuity of Care Document ---
Author Organization [facility] Address [address] [place] [address] [facility], [address] [place] [address]- Care Team Providers Care Machine Welder Name Role Phone Cornell VALLECILLO, Miriam Sharpe Primary Care Physician Encounter [facility] Date(s[place] 10/16/20 - 11/15/20 [facility] [address] [place] [address] Drive, [address] [place], [place] [address] Attending Physician: Socorro Koch Admitting Physician: AdmSocorro arvizu Referring Physician: AdmtrSocorro Allergies, Adverse Reactions, Alerts [...] kit, 5 Refills, Maintenance, 07/10/20 9:56:00 EST, [facility], 167.6, cm, 06/06/20 14:32:00 EST, Height, 102.1, kg, 04/11/20 6:08:00 EST, Dry Weight Start Date: 07/10/20 Status: Ordered albuterol 0.083% inhalation solution 3 mL = 2.5 mg, Inhalation, Every 6 hours, PRN for wheezing/shortness of breath, # 60 each, 2 Refills, Maintenance, 08/30/20 14:43:00 EDT, Solution, [facility] [address] [place] [address], [place], Partial fill upon patient request if the prescription is... Start Date: 08/30/20 Status: Ordered allopurinol 300 mg oral tablet 300 mg, 1, tablet, By Mouth, Daily, # 30 tablet, Refills 0, Maintenance, 09/30/19 15:52:00 EDT Start Date: 09/30/19 Status: Ordered budesonide 1 mg/2 mL inhalation suspension 1 vials, Inhalation, Daily, # 60 mL, 5 Refills, Maintenance, 11/10/20 12:54:00 EDT, [facility] [address] [place] [address], [place], 168, cm, 10/30/20 10:27:00 EDT, Height, 98.5, kg, 08/03/20 15:21:00 EST, Dry Weight Start Date: 11/10/20 Status: Ordered busPIRone 7.5 mg oral tablet 1 tablet, By Mouth, 2 times a day, # 60 tablet, 2 Refills, Maintenance, 09/13/20 15:06:00 EDT, [facility] [address] [place] [address], [place], 168, cm, 08/03/20 15:21:00 EST, Height, 98.5, kg, 08/03/20 15:21:00 EST, Dry Weight Start Date: 09/13/20 Status: Ordered hydrochlorothiazide 25 mg oral tablet 25 mg, 1, tablet, By Mouth, Daily, # 30 tablet, Refills 5, Tot. Refills 5, Maintenance, 08/07/20 8:58:00 EST, Route to Pharmacy Electronically, [facility] [address] [place] [address], [place], 168, cm,08/03/20 15:21:00 EST, Height, 98.5, kg, [...] tablet, 1 Refills, Maintenance, 10/11/20 12:51:00 EDT, [facility] [address] [place] [address], [place], 168, cm, 09/29/20 8:43:00 EDT, Height, 98.5, kg, 08/03/20 15:21:00 EST, Dry Weight Start Date: 10/11/20 Status: Ordered lisinopril 5 mg oral tablet 1, tablet, By Mouth, Daily, # 30 tablet, Refills 2, Tot. Refills 2, Maintenance, 10/11/20 12:52:00 EDT, Route to Pharmacy Electronically, [facility] [address] [place] [address], [place], 168, cm, 09/29/20 8:43:00 EDT, Height, 98.5, [...] tablet, 0 Refills, Maintenance, 10/13/20 21:48:00 EDT, [facility] [address] [place] [address], [place], 168, cm, 09/29/20 8:43:00 EDT, Height, 98.5, kg, 08/03/20 15:21:00 EST, D... Start Date: 10/13/20 Status: Ordered ProAir HFA 90 mcg/inh inhalation aerosol with adapter 2, puffs, Inhalation, Every 4 hours, PRN, directed., # 8.5 Gm, Refills 5, Tot. Refills 5, Maintenance, 09/26/20 12:18:00 EDT, Route to Pharmacy Electronically, [id number], [facility] [address] [place] [address], 168... Start Date: 09/26/20 Status: Ordered Probiotic Formula By Mouth, Daily, 0 Refills, Maintenance, 07/21/20 11:13:00 EST, Partial fill upon patient request if the prescription is for a schedule II opioid drug. Start Date: 07/21/20 Status: Ordered rosuvastatin 20 mg oral capsule 1 capsule = 20 mg, By Mouth, Daily, # 30 capsule, 5 Refills, Maintenance, 10/11/20 12:53:00 EDT, Capsule, [facility] [address] [place] [address], Partial fill upon patient request if the prescription is for a schedule II opioid drug., 168, cm,... Start Date: 10/11/20 Status: Ordered Singulair 10 mg oral tablet 10 mg, 1, tablet, By Mouth, Daily, # 30 tablet, Refills 5, Tot. Refills 5, Maintenance, 11/10/20 12:55:00 EDT, Route to Pharmacy Electronically, [facility] [address] [place] [address], Partialfill upon patient request if the prescription is fo... Start Date: 11/10/20 Status: Ordered Topamax 100 mg oral tablet 1 tablet = 100 mg, By Mouth, 2 times a day, # 60 tablet, 5 Refills, Maintenance, 07/27/20 11:36:00 EST, Tablet, [facility] [address] [place] [address], 167.6, cm, 07/21/20 11:11:00 EST, Height, 102.1, kg, 04/11/20 6:08:00 EST, Dry Weight Start Date: 07/27/20 Stop Date: 01/23/21 Status: Ordered Zofran 4 mg oral tablet 1 tablet = 4 mg, By Mouth, Every 8 hours, PRN as needed for nausea/vomiting, # 15 tablet, 0 Refills, Maintenance, 08/03/20 15:17:00 EST, Tablet, [facility] [place], [place], Partialfill upon patient request if the prescription [...]
--- OUTSIDE RECORDS SUMMARY | 2024-02-16 15:50 | XMS_ITS | Continuity of Care Document ---
Author Organization [facility] Address [address] [place] [id number]- Care Team Providers Care Cat Dog Or Other Pet Groomer Name Role Phone Cornell VALLECILLO, Miriam Sharpe Primary Care Physician Encounter [facility] Date(s): 10/06/20 - 11/19/20 [facility] [address] [place] [id number] Attending Physician: Triston Weber MD Admitting Physician: [...] kit, 5 Refills, Maintenance, 07/10/20 9:56:00 EST, [facility], 167.6, cm, 06/06/20 14:32:00 EST, Height, 102.1, kg, 04/11/20 6:08:00 EST, Dry Weight Start Date: 07/10/20 Status: Ordered albuterol 0.083% inhalation solution 3 mL = 2.5 mg, Inhalation, Every 6 hours, PRN for wheezing/shortness of breath, # 60 each, 2 Refills, Maintenance, 08/30/20 14:43:00 EDT, Solution, [facility] [address] [place] [address], [place], Partial fill upon patient request if the prescription is... Start Date: 08/30/20 Status: Ordered allopurinol 300 mg oral tablet 300 mg, 1, tablet, By Mouth, Daily, # 30 tablet, Refills 0, Maintenance, 09/30/19 15:52:00 EDT Start Date: 09/30/19 Status: Ordered budesonide 1 mg/2 mL inhalation suspension 1 vials, Inhalation, Daily, # 60 mL, 5 Refills, Maintenance, 11/10/20 12:54:00 EDT, [facility] [address] [place] [address], [place], 168, cm, 10/30/20 10:27:00 EDT, Height, 98.5, kg, 08/03/20 15:21:00 EST, Dry Weight Start Date: 11/10/20 Status: Ordered busPIRone 7.5 mg oral tablet 1 tablet, By Mouth, 2 times a day, # 60 tablet, 2 Refills, Maintenance, 09/13/20 15:06:00 EDT, [facility] [address] [place] [address], [place], 168, cm, 08/03/20 15:21:00 EST, Height, 98.5, kg, 08/03/20 15:21:00 EST, Dry Weight Start Date: 09/13/20 Status: Ordered hydrochlorothiazide 25 mg oral tablet 25 mg, 1, tablet, By Mouth, Daily, # 30 tablet, Refills 5, Tot. Refills 5, Maintenance, 08/07/20 8:58:00 EST, Route to Pharmacy Electronically, [facility] [address] [facility], [place], 168, cm,08/03/20 15:21:00 EST, Height, 98.5, kg, [...] tablet, 1 Refills, Maintenance, 10/11/20 12:51:00 EDT, [facility] #[facility], [place], 168, cm, 09/29/20 8:43:00 EDT, Height, 98.5, kg, 08/03/20 15:21:00 EST, Dry Weight Start Date: 10/11/20 Status: Ordered lisinopril 5 mg oral tablet 1, tablet, By Mouth, Daily, # 30 tablet, Refills 2, Tot. Refills 2, Maintenance, 10/11/20 12:52:00 EDT, Route to Pharmacy Electronically, [facility] [address] [place] [address], [place], 168, cm, 09/29/20 8:43:00 EDT, Height, 98.5, [...] Maintenance, 10/13/20 21:48:00 EDT, [facility] [address] [place] [address], [place], 168, cm, 09/29/20 8:43:00 EDT, Height, 98.5, kg, 08/03/20 15:21:00 EST, D... Start Date: 10/13/20 Status: Ordered ProAir HFA 90 mcg/inh inhalation aerosol with adapter 2, puffs, Inhalation, Every 4 hours, PRN, directed., # 8.5 Gm, Refills 5, Tot. Refills 5, Maintenance, 09/26/20 12:18:00 EDT, Route to Pharmacy Electronically, [id number], [facility] [address] [place] [address], 168... Start Date: 09/26/20 Status: Ordered Probiotic Formula By Mouth, Daily, 0 Refills, Maintenance, 07/21/20 11:13:00 EST, Partial fill upon patient request if the prescription is for a schedule II opioid drug. Start Date: 07/21/20 Status: Ordered rosuvastatin 20 mg oral capsule 1 capsule = 20 mg, By Mouth, Daily, # 30 capsule, 5 Refills, Maintenance, 10/11/20 12:53:00 EDT, Capsule, [facility] [address] [place] [address], Partial fill upon patient request if the prescription is for a schedule II opioid drug., 168, cm,... Start Date: 10/11/20 Status: Ordered Singulair 10 mg oral tablet 10 mg, 1, tablet, By Mouth, Daily, # 30 tablet, Refills 5, Tot. Refills 5, Maintenance, 11/10/20 12:55:00 EDT, Route to Pharmacy Electronically, [facility] [address] [place] [address], Partialfill upon patient request if the prescription is fo... Start Date: 11/10/20 Status: Ordered Topamax 100 mg oral tablet 1 tablet = 100 mg, By Mouth, 2 times a day, # 60 tablet, 5 Refills, Maintenance, 07/27/20 11:36:00 EST, Tablet, [facility] [address] [place] [address], 167.6, cm, 07/21/20 11:11:00 EST, Height, 102.1, kg, 04/11/20 6:08:00 EST, Dry Weight Start Date: 07/27/20 Stop Date: 01/23/21 Status: Ordered Zofran 4 mg oral tablet 1 tablet = 4 mg, By Mouth, Every 8 hours, PRN as needed for nausea/vomiting, # 15 tablet, 0 Refills, Maintenance, 08/03/20 15:17:00 EST, Tablet, [facility] [address] [place] [address], Partialfill upon patient request if the prescription [...]
--- OUTSIDE RECORDS SUMMARY | 2024-02-16 15:50 | XMS_ITS | Continuity of Care Document ---
Author Organization [facility] Address [address] [place] [address]- Care Team Providers Care Senior Gis Analyst Name Role Phone Gilma VALLECILLO, Noreen Dennis Primary Care Physician Encounter [facility] Date(s): 11/20/22 - 12/20/22 [facility] [address] [place], [place] [address] Allergies, Adverse Reactions, Alerts Substance Reaction Severity Status codeine C/O: itching Active morphine N/V, itching, migraines Acti ve sulfa drugs Hives Active Vicodin itching, N/V, migraines Acti ve Demerol HCl itching, N/V, migraines Acti ve Adhesive Bandage C/O: itching Active Immunizations Given and Recorded Vaccine Date Status Refusal Reason tetanus/diphtheria/pertussis, acel(Tdap) 05/17/22 Given tetanus/diphtheria/pertussis, acel(Tdap) 10/20/15 Given tetanus/diphtheria/pertussis, acel(Tdap) 06/11/11 Recorded influenza virus vaccine, inactivated 04/03/22 Willie rded influenza virus vaccine, inactivated 02/22/21 Willie rded influenza virus vaccine, inactivated 03/23/19 Willie rded influenza virus vaccine, inactivated 03/18/15 Willie rded influenza virus vaccine, inactivated 06/11/11 Willie rded influenza virus vaccine, inactivated 05/04/08 Willie rded SARS-CoV-2 (COVID-19) mRNA-1273 vaccine 10/26/21 R ecorded SARS-CoV-2 (COVID-19) mRNA-1273 vaccine 05/14/21 R ecorded SARS-CoV-2 (COVID-19) mRNA-1273 vaccine 10/02/20 R ecorded SARS-CoV-2 (COVID-19) mRNA-1273 vaccine 09/04/20 R ecorded Influenza Virus Vaccine (oldterm) 02/07/20 Recorde d pneumococcal 13-valent vaccine 03/11/18 Recorded pneumococcal 23-valent vaccine 05/05/09 Given influ virus vac, H1N1, inactive(oldterm) 04/20/09 Recorded Medications Aimovig SureClick Autoinjector-aooe 140 mg/mL subcutaneous solution = 140 mg, Subcutaneous Infusion, Every 28 days, # 1 kit, 5 Refills, Maintenance, 12/19/22 15:53:00 EDT, [facility] [address] [place] [address], [place], 168, cm, 12/13/22 23:21:00 EDT, Height, 77, kg, 12/13/22 23:21:00 EDT, Dry Weight Start Date: 12/19/22 Status: Ordered Albuterol (Eqv-ProAir HFA) 90 mcg/inh inhalation aerosol 2 puffs, Inhalation, Every 4 hours, PRN NEEDED FOR WHEEZING, directed., # 8.5 Gm, 5 Refills, Maintenance, 11/17/22 11:54:00 EDT, 16, inhale 2 PUFFS BY MOUTH every 4 hours NEEDED FOR WHEEZINGAS directed, 168, cm, 10/08/22 12:10:00 EDT, Height... Start Date: 11/17/22 Status: Ordered allopurinol 300 mg oral tablet 300 mg, 1, tablet, By Mouth, Daily, # 30 tablet, Refills 0, Maintenance, 09/30/19 15:52:00 EDT Start Date: 09/30/19 Status: Ordered baclofen 10 mg oral tablet 10 mg, 1, tablet, By Mouth, 3 times a day, # 90 tablet, Refills 5, Tot. Refills 5, Maintenance, 05/24/22 15:17:00 EST, Route to Pharmacy Electronically, [facility] [address] [place] [address], [place],Partial fill upon patient request if the prescripti... Start Date: 05/24/22 Status: Ordered famotidine 20 mg oral tablet 20 mg, 1, tablet, By Mouth, Daily at bedtime, # 30 tablet, Refills 0, Tot. Refills 0, Maintenance, 05/17/22 12:58:00 EST, Route to Pharmacy Electronically, [facility] [address] [place] [address], Partial fill upon patient request if the prescri... Start Date: 05/17/22 Status: Ordered hydrochlorothiazide 25 mg oral tablet See Instructions, TAKE 1 TABLET BY MOUTH DAILY, # 30 tablet, Refills 5, Maintenance, 10/27/22 17:57:00 EDT, Instructions Replace Required Details, Print Requisition, 168, cm, 10/08/22 12:10:00 EDT, Height, 100, kg, 05/16/22 23:03:00 EST, Dry Weight Start Date: 10/27/22 Status: Ordered ibuprofen 600 mg oral tablet Refills 0, Maintenance, 05/24/22 14:15:00 EST, Partial fill upon patient request if the prescription is for a schedule II opioid drug. Start Date: 05/24/22 Status: Ordered levothyroxine 0.05 mg oral tablet 1 tablet, By Mouth, Daily in AM, for 90 days, ON AN EMPTY stomach., # 90 tablet, 3 Refills, Physician Stop 01/01/23 13:33:00 EDT, 01/06/22 13:33:00 EDT, [facility] [place] [facility] [address] [place] [address], [place],[address], cm, 12/19/21 14:14:00 EDT, Height, 94.5, kg, 0... Start Date: 01/06/22 Stop Date: 01/01/23 Status: Ordered meloxicam 15 mg oral tablet 1 tablet = 15 mg, By Mouth, Daily, # 90 tablet, 0 Refills, Maintenance, 10/17/21 15:08:00 EDT, Tablet, Partial fill upon patient request if the prescription is for a schedule II opioid drug. Start Date: 10/17/21 Status: Ordered montelukast 10 mg oral tablet 1, tablet, By Mouth, Daily, IN THE pm., # 90 tablet, Refills 3, Maintenance, 07/02/22 19:48:00 EST,Route to Pharmacy Electronically, [facility], 168, cm, 06/19/22 11:00:00 EST, Height, 100, kg, 05/16/22 23:03:00 EST, Dry Weight Start Date: 07/02/22 Status: Ordered Mounjaro 5 mg/0.5 mL subcutaneous solution = 7.5 mg, Subcutaneous Infusion, Every 7 days, # 2 mL, 0 Refills, Maintenance, 10/21/22 16:02:00 EDT, [facility], [place], Partial fill upon patient request if the prescription is for a schedule II opioid drug., 168, cm, 0... Start Date: 10/21/22 Stop Date: 11/18/22 Status: Ordered Mounjaro 7.5 mg/0.5 mL subcutaneous solution See Instructions, inject 7.5 mg Subcutaneous Infusion Every 7 days,x28 days, # 2 mL, 3 Refills, Maintenance, 12/12/22 5:58:00 EDT, [facility] [address] [place] [address], [place], 168, cm, 10/08/22 12:10:00 EDT, Height, 100, kg, 05/16/22 23:03:00 EST, D... Start Date: 12/12/22 Status: Ordered multivitamin Lipotropic with Multivitamins oral tablet 1 tablet, By Mouth, Daily, # 90 tablet, 0 Refills, Maintenance, 06/06/20 14:35:00 EST, Tablet, Partial fill upon patient request if the prescription is for a schedule II opioid drug. Start Date: 06/06/20 Status: Ordered nortriptyline 75 mg oral capsule See Instructions, TAKE 1 CAPSULE BY MOUTH DAILY AT BEDTIME, # 90 capsule, Refills 3, Maintenance, 08/29/22 13:05:00 EDT, Instructions Replace Required Details, [facility], 168, cm, 06/19/22 11:00:00 EST... Start Date: 08/29/22 Status: Ordered omeprazole 40 mg oral enteric coated capsule 1 capsule = 40 mg, By Mouth, Daily, 0 Refills, Maintenance, 09/29/20 8:47:00 EDT, Partial fill uponpatient request if the prescription is for a schedule II opioid drug. Start Date: 09/29/20 Status: Ordered ondansetron 8 mg oral tablet 1 tablet, By Mouth, 2 times a day, PRN NEEDED FOR nausea/vomiting, # 60 tablet, 1 Refills, Maintenance, 10/21/22 16:03:00 EDT, [facility] [place], [place], 168, cm, 10/08/22 12:10:00 EDT, Height, 100, kg, 05/16/22 23:03:00 EST, Start Date: 10/21/22 Stop Date: 12/20/22 Status: Ordered oxyCODONE 5 mg oral tablet 5 mg, 1, tablet, By Mouth, Every 6 hours, PRN, # 28 tablet, Refills 0, Tot. Refills 0, Maintenance,as needed for pain, 12/18/22 16:53:00 EDT, Route to Pharmacy Electronically, [facility] [address] [place] [address], [place], Partial fill upon patient r... Start Date: 12/18/22 Stop Date: 12/25/22 Status: Ordered Physical Therapy Physical Therapy, See Instructions, # 1 each, Refills 0, Tot. Refills 0, Maintenance, 2-3x/week for6 weeks Decrease back pain Improve mobility, 08/09/22 9:27:00 EST, Supply Start Date: 08/09/22 Status: Ordered Probiotic Formula By Mouth, Daily, 0 Refills, Maintenance, 07/21/20 11:13:00 EST, Partial fill upon patient request if the prescription is for a schedule II opioid drug. Start Date: 07/21/20 Status: Ordered rosuvastatin 20 mg oral tablet See Instructions, TAKE 1 TABLET BY MOUTH DAILY, # 90 tablet, 5 Refills, Maintenance, 10/27/22 17:58:00 EDT, [facility], 168, cm, 10/08/22 12:10:00 EDT, Height, 100, kg, 05/16/22 23:03:00 EST, Dry Weight Start Date: 10/27/22 Status: Ordered topiramate 100 mg oral tablet See Instructions, TAKE 1 TABLET BY MOUTH TWICE DAILY, # 60 tablet, 5 Refills, Maintenance, 10/27/2316:58:00 EDT, [facility], 168, cm, 10/08/22 12:10:00 EDT, Height, 100, kg, 05/16/22 23:03:00 EST, Dry Weight Start Date: 10/27/22 Status: Ordered traMADol 50 mg oral tablet 1 tablet = 50 mg, By Mouth, Every 6 hours, PRN Pain , Moderate, # 112 tablet, 0 Refills, Maintenance, 12/24/22 6:08:00 EDT, Tablet, [facility] [address] [place] [address], Partial fill upon patient request if the prescription is for a schedule... Start Date: 12/24/22 Stop Date: 01/21/23 Status: Ordered traMADol 50 mg oral tablet 1 tablet = 50 mg, By Mouth, Every 6 hours, PRN Pain , Moderate, for 28 days, # 112 tablet, 0 Refills, Hard Stop 12/24/22 6:08:00 EDT, 11/26/22 6:08:00 EDT, Tablet, [facility] [address] [place] [address], Partial fill upon patient request if the... Start Date: 11/26/22 Stop Date: 12/24/22 Status: Ordered Problem List Condition Confirmation Course Effective Dates Status H ealth Status Informant Anxiety Confirmed Active Asthma Confirmed Active Back pain Confirmed Active Degenerative disc disease Confirmed Active Depression Confirmed Active Esophageal reflux Confirmed Active Lumbar transverse process fracture Confirmed Active Hyperglycemia Confirmed Active Hyperlipidemia Confirmed Active Hypertension Confirmed Active Hypothyroid Confirmed Active IBS - Irritable bowel syndrome Confirmed Active Frequent urination Confirmed Active Elevated glucose Confirmed Active Migraine Confirmed Active Radiculopathy Confirmed Active Occipital neuralgia Confirmed Active Post concussive syndrome Confirmed Active Right flank pain Confirmed Active Right shoulder pain Confirmed Active Tachycardia Confirmed Active Social History Social History Type Response Smoking Status Former smoker; Tobac co user in household: No; Type: Cigarettes entered on: 04/24/15 Sex Female Patient Care team information Care Team Personnel Name: Marco Licona RN Position: S RN Member Role: Primary Care Nurse Name: Noreen Dillard MD Position: [facility] Physician - Primary Care Member Role: PCP Address: Address: [address] [place] [address] [place] [address]- Name: Dylan Cox RN Position: S RN Member Role: Primary Care Nurse Care Team Related Persons Name: JEREMY GUTIÉRREZ Address: home [address], [place] Name: KAYLEEN WILLAMS Address: home [address] [place] [address] Name: SHAMEKA GUTIRERES Address: home [address], [place]
--- OUTSIDE RECORDS SUMMARY | 2024-02-16 15:50 | XMS_ITS | Continuity of Care Document ---
Author Organization [facility] Address [address], [address] Floor, [address] [place] [address]- Care Team Providers Care Cryptographic Technician Name Role Phone Cornell VALLECILLO, Miriam Sharpe Primary Care Physician [place] [facility] [place]20 [facility] [address], 3rd Floor, [address] [place] [address]- [facility] Attending Physician: Shannan Lima MD Admitting Physician: Shannan Lima MD Allergies, Adverse Reactions, Alerts Substance Reaction [...] 01/03/20 17:23:00 EDT, Route to Pharmacy Electronically, [facility], Partial fill upon patient request, 167.... Start Date: 01/03/20 Status: Ordered Aimovig SureClick Autoinjector-aooe 140 mg/mL subcutaneous solution = 140 mg, Subcutaneous Infusion, Every 28 days, # 1 kit, 5 Refills, Maintenance, 02/08/20 9:40:00 EDT, [facility], 167.64, cm, 02/07/20 13:13:00 EDT, Height, 106.4, kg, 12/14/19 17:54:00 EDT, Dry Weight Start Date: 02/08/20 Status: Ordered allopurinol 300 mg oral tablet 300 mg, 1, tablet, By Mouth, Daily, # 30 tablet, Refills 0, Maintenance, 09/30/19 15:52:00 EDT Start Date: 09/30/19 Status: Ordered almotriptan 6.25 mg oral tablet topama, By Mouth, Once, May repeat in 2 hours, # 9 tablet, 1 Refills, Soft Stop, 01/27/20 16:14:00 EDT, Tablet, [facility] [address] [place] [address], d/c naratriptan, 167.64, cm, 01/19/20 11:34:00 EDT, Height, 106.4, kg, 12/14/19 17:54:00 ED... Start Date: 01/27/20 Status: Ordered atorvastatin 80 mg oral tablet 1 tablet = 80 mg, By Mouth, Daily, # 30 tablet, 2 Refills, Maintenance, 02/10/20 8:57:00 EDT, Tablet, [facility] [address] [place] [address], 167.64, cm, 02/07/20 13:13:00 EDT, Height, 106.4, kg, 12/14/19 17:54:00 EDT, Dry Weight Start Date: 02/10/20 Status: Ordered busPIRone 7.5 mg oral tablet 1 tablet, By Mouth, 2 times a day, # 60 tablet, 2 Refills, Maintenance, 12/08/19 12:54:00 EDT, [facility] [address] [place] [address], 167.64, cm, 12/06/19 15:16:00 EDT, Height, 104.55, kg, 12/06/19 15:16:00 EDT, Dry Weight Start Date: 12/08/19 Status: Ordered hydrochlorothiazide 25 mg oral tablet See Instructions, TAKE 1 TABLET BY MOUTH DAILY, # 30 tablet, Refills 5, Tot. Refills 5, Maintenance, Instructions Replace Required Details, Route to Pharmacy Electronically, [facility], 167.64, cm, 02/07/20 13:13:00 EDT, Height, 106.4,... Start Date: 02/07/20 Status: Ordered hydrochlorothiazide 25 mg oral tablet 25 mg, 1, tablet, By Mouth, Daily, # 30 tablet, Refills 2, Tot. Refills 2, Maintenance, 11/04/19 9:33:00 EDT, Route to Pharmacy Electronically, [facility] [address] [place] [address], 168, cm, 11/03/19 14:03:00 EDT, Height, 116, [...] tablet, 0 Refills, Maintenance, 01/17/20 8:19:00 EDT, [facility] [address] [place] [address], 167.64, cm, 12/14/19 17:50:00EDT, Height, 106.4, kg, 12/14/19 17:54:00 EDT, Dry... Start Date: 01/17/20 Status: Ordered lisinopril 5 mg oral tablet 5 mg, 1, tablet, By Mouth, Daily, # 30 tablet, Refills 5, Tot. Refills 5, Maintenance, 02/07/20 13:48:00 EDT, Route to Pharmacy Electronically, [facility] [address] [place] [address], [place], 167.64, cm, 02/07/20 13:13:00 EDT, Height, 106.4, kg, 12/13/... Start Date: 02/07/20 Status: Ordered Multi Vitamin+ 0 Refills, Maintenance, 07/21/19 15:30:00 EST Start Date: 07/21/19 Status: Ordered ProAir HFA 90 mcg/inh inhalation aerosol with adapter 2, puffs, Inhalation, Every 4 hours, PRN, directed., # 8.5 Gm, Refills 5, Tot. Refills 0, Maintenance, 02/07/20 11:10:00 EDT, Route to Pharmacy Electronically, [id number], [facility], 167.64, cm, 01/19/20 11... Start Date: 02/07/20 Status: Ordered Pulmicort Flexhaler 180 mcg 1 puffs, Inhalation, 2 times a day, # 1 each, 0 Refills, Maintenance, 11/04/19 11:17:00 EDT, Powder, [facility] [place], 1 puffs Inhalation 2 times a day, 168, cm, 11/03/19 14:03:00 EDT, Height, 116, kg, 06/03/19 14:55:00 EST, Dry Weight Start Date: 11/04/19 Status: Ordered tiZANidine 4 mg oral tablet 4 mg, 1, tablet, By Mouth, 3 times a day, # 90 tablet, Refills 0, Tot. Refills 0, Maintenance, 12/14/19 15:29:00 EDT, Route to Pharmacy Electronically, [facility] #31 - [facility], 167.64, cm, 12/14/19 9:02:00 EDT, Height, 106.4, kg, 12/14/19... Start Date: 12/14/19 Status: Ordered Topamax 100 mg oral tablet 1 tablet = 100 mg, By Mouth, 2 times a day, # 60 tablet, 5 Refills, Maintenance, 01/27/20 16:14:00 EDT, Tablet, [facility] #[facility] - [place], [place], 167.64, cm, 01/19/20 11:34:00 EDT, Height, 106.4, kg, 12/14/19 17:54:00 EDT, Dry Weight Start Date: 01/27/20 Stop Date: 07/25/20 Status: Ordered Zofran 8 mg oral tablet [...]
--- OUTSIDE RECORDS SUMMARY | 2024-02-16 15:50 | XMS_ITS | Continuity of Care Document ---
Author Organization [facility] Address [address] [place] [address]- Care Team Providers Care Scouring Machine Tender Name Role Phone Cornell VALLECILLO, Miriam Sharpe Primary Care Physician [place] [facility] [place] 07/28/19 - 11/12/19 [facility] [address] [place] [address]- [facility] Attending Physician: Triston Weber MD Admitting Physician: Triston Weber MD Referring Physician: Rush Marks NP Allergies, Adverse Reactions, Alerts Substance Reaction Severity [...] 2 Refills, Maintenance, 09/08/19 11:34:00 EDT, [facility], 168, cm, 07/26/19 14:34:00 EST, [...] 10/27/19 11:07:00 EDT, Route to Pharmacy Electronically, [id number], [facility], 168, cm, 10/19/19 8:27:00 [...]
--- OUTSIDE RECORDS SUMMARY | 2024-02-16 15:50 | XMS_ITS | Continuity of Care Document ---
Author Organization [facility] Address [address] [place] [address]- Care Team Providers Care Radio Mechanic Name Role Phone Cornell VALLECILLO, Miriam Sharpe Primary Care Physician Encounter [facility] [place] Date(s): 09/29/20 - 10/29/20 [facility] [address] [place] [address]- Attending Physician: AdmSocorro arvizu Admitting Physician: Admtr, Ar8 Referring Physician: Admtr, [...] kit, 5 Refills, Maintenance, 07/10/20 9:56:00 EST, [facility], 167.6, cm, 06/06/20 14:32:00 EST, Height, 102.1, kg, 04/11/20 6:08:00 EST, Dry Weight Start Date: 07/10/20 Status: Ordered albuterol 0.083% inhalation solution 3 mL = 2.5 mg, Inhalation, Every 6 hours, PRN for wheezing/shortness of breath, # 60 each, 2 Refills, Maintenance, 08/30/20 14:43:00 EDT, Solution, [facility] [address] [place] [address], [place], Partial fill upon patient request if the prescription is... Start Date: 08/30/20 Status: Ordered allopurinol 300 mg oral tablet 300 mg, 1, tablet, By Mouth, Daily, # 30 tablet, Refills 0, Maintenance, 09/30/19 15:52:00 EDT Start Date: 09/30/19 Status: Ordered budesonide 1 mg/2 mL inhalation suspension 1 vials, Inhalation, Daily, # 60 mL, 0 Refills, Maintenance, 09/27/20 11:56:00 EDT, [facility] [place], 168, cm, 08/03/20 15:21:00 EST, Height, 98.5, kg, 08/03/20 15:21:00 EST, Dry Weight Start Date: 09/27/20 Status: Ordered busPIRone 7.5 mg oral tablet 1 tablet, By Mouth, 2 times a day, # 60 tablet, 2 Refills, Maintenance, 09/13/20 15:06:00 EDT, [facility] [address] [place] [address], [place], 168, cm, 08/03/20 15:21:00 EST, Height, 98.5, kg, 08/03/20 15:21:00 EST, Dry Weight Start Date: 09/13/20 Status: Ordered hydrochlorothiazide 25 mg oral tablet 25 mg, 1, tablet, By Mouth, Daily, # 30 tablet, Refills 5, Tot. Refills 5, Maintenance, 08/07/20 8:58:00 EST, Route to Pharmacy Electronically, [facility], [place], 168, cm,08/03/20 15:21:00 EST, Height, 98.5, kg, [...] tablet, 1 Refills, Maintenance, 10/11/20 12:51:00 EDT, [facility], 168, cm, 09/29/20 8:43:00 EDT, Height, 98.5, kg, 08/03/20 15:21:00 EST, Dry Weight Start Date: 10/11/20 Status: Ordered lisinopril 5 mg oral tablet 1, tablet, By Mouth, Daily, # 30 tablet, Refills 2, Tot. Refills 2, Maintenance, 10/11/20 12:52:00 EDT, Route to Pharmacy Electronically, [facility], 168, cm, 09/29/20 8:43:00 EDT, Height, 98.5, [...] Maintenance, 10/13/20 21:48:00 EDT, [facility], [place], 168, cm, 09/29/20 8:43:00 EDT, Height, 98.5, kg, 08/03/20 15:21:00 EST, D... Start Date: 10/13/20 Status: Ordered ProAir HFA 90 mcg/inh inhalation aerosol with adapter 2, puffs, Inhalation, Every 4 hours, PRN, directed., # 8.5 Gm, Refills 5, Tot. Refills 5, Maintenance, 09/26/20 12:18:00 EDT, Route to Pharmacy Electronically, [id number], [facility] [address] [place] [address], 168... Start Date: 09/26/20 Status: Ordered Probiotic Formula By Mouth, Daily, 0 Refills, Maintenance, 07/21/20 11:13:00 EST, Partial fill upon patient request if the prescription is for a schedule II opioid drug. Start Date: 07/21/20 Status: Ordered rosuvastatin 20 mg oral capsule 1 capsule = 20 mg, By Mouth, Daily, # 30 capsule, 5 Refills, Maintenance, 10/11/20 12:53:00 EDT, Capsule, [facility] [address] [place] [address], Partial fill upon patient request if the prescription is for a schedule II opioid drug., 168, cm,... Start Date: 10/11/20 Status: Ordered Singulair 10 mg oral tablet 10 mg, 1, tablet, By Mouth, Daily, # 30 tablet, Refills 5, Tot. Refills 5, Maintenance, 06/07/20 13:22:00 EST, Route to Pharmacy Electronically, [facility] [address] [place] [address], Partialfill upon patient request if the prescription is fo... Start Date: 06/07/20 Status: Ordered Topamax 100 mg oral tablet 1 tablet = 100 mg, By Mouth, 2 times a day, # 60 tablet, 5 Refills, Maintenance, 07/27/20 11:36:00 EST, Tablet, [facility] [address] [place] [address], 167.6, cm, 07/21/20 11:11:00 EST, Height, 102.1, kg, 04/11/20 6:08:00 EST, Dry Weight Start Date: 07/27/20 Stop Date: 01/23/21 Status: Ordered Zofran 4 mg oral tablet 1 tablet = 4 mg, By Mouth, Every 8 hours, PRN as needed for nausea/vomiting, # 15 tablet, 0 Refills, Maintenance, 08/03/20 15:17:00 EST, Tablet, [facility] [address] [place] [address], Partialfill upon patient request if the prescription [...]
--- OUTSIDE RECORDS SUMMARY | 2024-02-16 15:50 | XMS_ITS | Continuity of Care Document ---
Author Organization [facility] Address [address] [facility] [address] [facility], 3r [address] Floor, [address] [place] [address]- Care Team Providers Care Integrity Analyst Name Role Phone Cornell VALLECILLO, Miriam Sharpe Primary Care Physician [place] [facility] [place]): [place] - 11/11/19 [facility] [address], [address] Floor, [address] [place] [address]- [facility] Attending Physician: Shannan Lima MD Admitting [...] 10/27/19 11:07:00 EDT, Route to Pharmacy Electronically, [id number], [facility], 168, cm, 10/19/19 8:27:00 [...]
--- OUTSIDE RECORDS SUMMARY | 2024-02-16 15:50 | XMS_ITS | Continuity of Care Document ---
Author Organization [facility] Address [address] [place] [address] D[address], [address] [place] [address]- Care Team Providers Care Block Stacker Name Role Phone Miriam Sarabia MD Primary Care Physician En[place] [facility] [place] 04/17/20 - 05/17/20 [facility] [address] [place] [address] Drive, [address] [place], [place] [address] Allergies, Adverse Reactions, Alerts Substance Reaction [...] kit, 5 Refills, Maintenance, 02/08/20 9:40:00 EDT, [facility], 167.64, cm, 02/07/20 13:13:00 [...] 11:25:00 EST, Tablet, [facility] [address] [facility], [place], 167.6, cm, 04/11/20 6:08:00 EST, Height, 102.1, [...] Pharmacy Electronically, [facility] [address] [place] [address], 168, cm, 11/03/19 14:03:00 EDT, Height, 116, [...] 04/20/20 16:15:00 EST, [facility] [facility], [place], 167.6, cm, 04/11/20 6:08:00 EST, Height, 102.1, kg, 04/11/20 6:08:00 EST, Dry We... Start Date: 04/20/20 Status: Ordered lisinopril 5 mg oral tablet 5 mg, 1, tablet, By Mouth, Daily, # 30 tablet, Refills 5, Tot. Refills 5, Maintenance, 02/07/20 13:48:00 EDT, Route to Pharmacy Electronically, [facility] [address] [place] [address], [place], 167.64, cm, 02/07/20 13:13:00 EDT, Height, 106.4, kg, ... Start Date: 02/07/20 Status: Ordered Medrol Dosepak 4 mg oral tablet 1 pack/packet, By Mouth, Once, # 21 tablet, 0 Refills, Soft Stop, 05/11/20 9:00:00 EST, Tablet, [facility] [address] [place] [address], Partial fill upon patient request if the prescription isfor a schedule II opioid drug., 167.6, cm, 05/09/20... Start Date: 05/11/20 Status: Ordered Multi Vitamin+ 0 Refills, Maintenance, 07/21/19 15:30:00 EST Start Date: 07/21/19 Status: Ordered Neurontin 300 mg oral capsule 300 mg, 1, capsule, By Mouth, 3 times a day, # 30 tablet, Refills 0, Tot. Refills 0, Maintenance, 04/11/20 15:24:00 EST, Route to Pharmacy Electronically, [facility] [address] [place] [address], [place], 167.6, cm, 04/11/20 6:08:00 EST, Height, 102.1, k... Start Date: 04/11/20 Status: Ordered oxyCODONE 10 mg oral tablet 1 tablet = 10 mg, By Mouth, Every 8 hours, PRN as needed for pain, # 21 tablet, 0 Refills, Maintenance, 05/02/20 17:15:00 EST, Tablet, [facility] [address] [place] [address], [place], Partial fill uponpatient request, 167.6, cm, 04/11/20 6:08:00 EST, H... Start Date: 05/02/20 Stop Date: 05/09/20 Status: Ordered oxyCODONE 5 mg oral tablet 5 mg, 1, tablet, By Mouth, Every 8 hours, PRN, # 21 tablet, Refills 0, Tot. Refills 0, Maintenance,as needed for pain, 05/08/20 16:01:00 EST, Route to Pharmacy Electronically, [facility] [address] [place] [address] [place], Partial fill upon patient r... Start Date: 05/08/20 Status: Ordered Pepcid 20 mg oral tablet 1 tablet = 20 mg, By Mouth, Daily, # 7 tablet, 0 Refills, Maintenance, 05/11/20 9:00:00 EST, Tablet, [facility] [address] [place] [address] [place], Partial fill upon patient request if the prescription is for a schedule II opioid drug., 167.6, cm, ... Start Date: 05/11/20 Stop Date: 05/18/20 Status: Ordered ProAir HFA 90 mcg/inh inhalation aerosol with adapter 2, puffs, Inhalation, Every 4 hours, PRN, directed., # 8.5 Gm, Refills 5, Tot. Refills 0, Maintenance, 02/07/20 11:10:00 EDT, Route to Pharmacy Electronically, [id number], [facility] [place], 167.64, cm, 01/19/20 11... Start Date: 02/07/20 [...] 5 Refills, Maintenance, 01/27/20 16:14:00 EDT, Tablet, [facility] [address] [place] [address] [place], 167.64, cm, 01/19/20 11:34:00 EDT, Height, 106.4, kg, 12/14/19 17:54:00 EDT, Dry Weight Start Date: 01/27/20 Stop Date: 2/16/21 Status: Ordered Valium 5 mg oral tablet 5 mg, 1, tablet, By Mouth, 3 times a day, PRN, # 30 tablet, Refills 0, Tot. Refills 0, Maintenance,Spasm, 04/11/20 15:24:00 EST, Route to Pharmacy Electronically, [facility] [address] [facility], [place], 167.6, cm, 04/11/20 6:08:00 EST, Height,... Start Date: 04/11/20 Status: Ordered Zofran 8 mg oral tablet 1 tablet = 8 mg, By Mouth, 2 times a day, PRN as needed for nausea/vomiting, # 30 tablet, 0 Refills, Maintenance, 04/05/20 9:49:00 EDT, Tablet, [facility] [facility], [place], 167.64, cm, 04/05/20 9:29:00 EDT, Height, 106.4, [...]
--- OUTSIDE RECORDS SUMMARY | 2024-02-16 15:50 | XMS_ITS | Continuity of Care Document ---
Author Organization [facility] Address [address] [place] [address] Dr [address], [address] [place] [address]- Care Team Providers Care Crna Name Role Phone Cornell VALLECILLO, Miriam Sharpe Primary Care Physician En[place] [facility] [place] Date(s): 09/04/19 - 10/30/19 [facility] [address] [place] [address] Drive, [address] [place] [address]- [facility] Attending Physician: Not on Staff, Attending MD Referring Physician: Cornell VALLECILLO, Miriam Sharpe Allergies, Adverse [...] 2 Refills, Maintenance, 09/08/19 11:34:00 EDT, [facility], 168, cm, 07/26/19 14:34:00 EST, Height, 116, kg, 06/03/19 14:55:00 EST, Dry Weight Start Date: 09/08/19 Status: Ordered Breo Ellipta 100 mcg-25 mcg/inh inhalation powder 1 puffs, Inhalation, Daily, # 30 each, 0 Refills, Maintenance, 10/15/19 8:27:00 EDT, Powder, [facility] - [place], [...] 10/01/19 8:22:00 EDT, Route to Pharmacy Electronically, [facility] - [place], [...] 10/15/19 8:27:00 EDT, Route to Pharmacy Electronically, [facility] - [place], [...] 16:16:00 EDT, 10/13/19 16:15:00 EDT, Tablet, [facility] - [place], tried sumatriptan , eletriptan , ri... Start Date: 10/13/19 Stop Date: 11/12/20 Status: Ordered ProAir HFA 90 mcg/inh inhalation aerosol with adapter 2, puffs, Inhalation, Every 4 hours, PRN, # 8.5 Gm, Refills 5, Tot. Refills 0, Maintenance, 10/27/19 11:07:00 EDT, Route to Pharmacy Electronically, [id number], [facility], 168, cm, 10/19/19 8:27:00 EDT, Height... Start Date: 10/27/19 Status: Ordered topiramate 25 mg oral tablet 3 tablet = 75 mg, By Mouth, 2 times a day, dose increase, # 180 tablet, 5 Refills, Maintenance, 10/13/19 16:12:00 EDT, Tablet, [facility] #[facility] - [place], [...]
--- OUTSIDE RECORDS SUMMARY | 2024-02-16 15:50 | XMS_ITS | Continuity of Care Document ---
Author Organization [facility] Address [address] [place] [address] Dri [address], [address] [place] [address]- Care Team Providers Care Sole Polisher Name Role Phone Cornell VALLECILLO, Miriam Sharpe Primary Care Physician Encounter [facility] [place] Date(s): 12/27/19 - 01/26/20 [facility] [address] [place] [address] Drive, [address] [place] [address]- [facility] Allergies, Adverse Reactions, Alerts Substance Reaction Severity [...] 01/03/20 17:23:00 EDT, Route to Pharmacy Electronically, [facility] [place], Partial fill [...] 8:18:00 EDT, [facility] #[facility] [place], 167.64, cm, 12/14/19 17:50:00 EDT, Height, 106.4, kg, 12/14/19 17:54:00 EDT, Dry Weight Start Date: 01/17/20 Status: Ordered busPIRone 7.5 mg oral tablet 1 tablet, By Mouth, 2 times a day, # 60 tablet, 2 Refills, Maintenance, 12/08/19 12:54:00 EDT, [facility] [address] [place] [address], 167.64, cm, 12/06/19 15:16:00 EDT, Height, 104.55, kg, 12/06/19 15:16:00 EDT, Dry Weight Start Date: 12/08/19 Status: Ordered hydrochlorothiazide 25 mg oral tablet 25 mg, 1, tablet, By Mouth, Daily, # 30 tablet, Refills 2, Tot. Refills 2, Maintenance, 11/04/19 9:33:00 EDT, Route to Pharmacy Electronically, [facility] [address] [place] [address], 168, cm, 11/03/19 14:03:00 EDT, Height, 116, [...] Maintenance, 01/17/20 8:19:00 EDT, [facility] #[facility] [place], [place], 167.64, cm, 12/14/19 17:50:00EDT, Height, 106.4, kg, 12/14/19 17:54:00 EDT, Dry... Start Date: 01/17/20 Status: Ordered lisinopril 5 mg oral tablet 5 mg, 1, tablet, By Mouth, Daily, # 30 tablet, Refills 2, Tot. Refills 2, Maintenance, 11/04/19 9:34:00 EDT, Route to Pharmacy Electronically, [facility] [place] #31 - [place], 168, cm, 11/03/19 14:03:00 EDT, Height, 116, kg, 06/03/19 14:55:00 EST,... Start Date: 11/04/19 Status: Ordered Medrol Dosepak 4 mg oral tablet See Instructions, 1 pack/packet By Mouth Daily 6 days, # 1 pack/packet, 0 Refills, Maintenance, 12/28/19 6:48:00 EDT, Tablet, [facility] [place] #31 - [place], f/u with PCP if [...] 11/12/20 16:16:00 EDT, 10/13/19 16:15:00 EDT, Tablet, [facility] #[facility] - [place], tried sumatriptan , eletriptan , ri... Start Date: 10/13/19 Stop Date: 11/12/20 Status: Ordered ProAir HFA 90 mcg/inh inhalation aerosol with adapter 2, puffs, Inhalation, Every 4 hours, PRN, # 8.5 Gm, Refills 5, Tot. Refills 0, Maintenance, 10/27/19 11:07:00 EDT, Route to Pharmacy Electronically, [id number], [facility] [place], 168, cm, 10/19/19 8:27:00 EDT, Height... Start Date: 10/27/19 Status: Ordered Pulmicort Flexhaler 180 mcg 1 puffs, Inhalation, 2 times a day, # 1 each, 0 Refills, Maintenance, 11/04/19 11:17:00 EDT, Powder, [facility] #[facility] - [place], 1 puffs Inhalation 2 times a day, 168, cm, 11/03/19 14:03:00 EDT, Height, 116, kg, 06/03/19 14:55:00 EST, Dry Weight Start Date: 11/04/19 Status: Ordered tiZANidine 4 mg oral tablet 4 mg, 1, tablet, By Mouth, 3 times a day, # 90 tablet, Refills 0, Tot. Refills 0, Maintenance, 12/14/19 15:29:00 EDT, Route to Pharmacy Electronically, [facility] #[facility] - [place], 167.64, cm, 12/14/19 9:02:00 EDT, Height, 106.4, kg, 12/14/19... Start Date: 12/14/19 Status: Ordered topiramate 25 mg oral tablet 3 tablet = 75 mg, By Mouth, 2 times a day, dose increase, # 180 tablet, 5 Refills, Maintenance, 10/13/19 16:12:00 EDT, Tablet, [facility] #[facility] - [place], 168, cm, [...]
--- OUTSIDE RECORDS SUMMARY | 2024-02-16 15:50 | XMS_ITS | Continuity of Care Document ---
Author Organization [facility] Address [address] [place] [address] Dr ve, [address] [place] [address]- Care Team Providers Care Health And Safety Coordinator Name Role Phone Cornell VALLECILLO, Miriam Sharpe Primary Care Physician Encounter [facility] [place] Date(s): 08/03/19 - 10/07/19 [facility] [address] [place] [address] Drive, [address] [place] [address]- [facility] Attending Physician: Martin Hester MD Referring Physician: Lupe Britt NP Allergies, Adverse Reactions, Alerts Substance Reaction Severity Status codeine C/O: itching Active morphine N/V, itching, migraines Acti ve sulfa drugs Hives Active Vicodin itching, N/V, migraines Acti ve Adhesive Bandage C/O: itching Active Demerol HCl itching, N/V, migraines Acti ve Immunizations Given and Recorded Vaccine Date Status [...] Dry Weight Start Date: 08/25/19 Status: Ordered Flovent HFA 220 mcg/inh inhalation aerosol 2 puffs, Inhalation, 2 times a day, # 12 Gm, 0 Refills, Maintenance, 10/01/19 8:23:00 EDT, Aerosol,[facility] [place], 168, cm, 10/01/19 8:15:00 EDT, Height, 116, kg, 06/03/19 14:55:00 EST, Dry Weight Start Date: 10/01/19 Status: Ordered hydrochlorothiazide 25 mg oral tablet 25 mg, 1, tablet, By Mouth, Daily, # 30 tablet, Refills 0, Tot. Refills 0, Maintenance, 10/01/19 8:22:00 EDT, Route to Pharmacy Electronically, [facility] [place], [...] tablet, 2 Refills, Maintenance, 08/13/19 12:28:00 EST, [facility], 168, cm, 07/26/19 14:34:00 EST, Height, 116, kg, 06/03/1914:55:00 EST, Dry Weight Start Date: 08/13/19 Status: Ordered meloxicam 15 mg oral tablet [...] 07/28/19 12:49:00 EST, Route to Pharmacy Electronically, [id number], [facility] [place], 168, cm, 07/26/19 14:34:00... Start Date: 07/28/19 Status: Ordered topiramate 25 mg oral tablet 2 tablet = 50 mg, By Mouth, 2 times a day, dose increase, # 120 tablet, 5 Refills, Maintenance, 07/26/19 14:36:00 EST, Tablet, [facility] [place], [...]
--- OUTSIDE RECORDS SUMMARY | 2024-02-16 15:50 | XMS_ITS | Continuity of Care Document ---
Author Organization [facility] ter Address [address] [place] [id number]- Care Team Providers Care Automatic Corn Grinder Operator Name Role Phone Estella BRADSHAW, Danielle Dawkins Primary Care Physician [place] [facility] [place]/07/[place] - 06/07/[address] [address]- [facility] Attending Physician: Silvina Jerez MD Allergies, Adverse Reactions, Alerts Substance Reaction [...] 2 Refills, Soft Stop, 06/07/19 14:27:00 EST, [facility] [place], 168, cm, 06/07/19 13:13:00 EST, Height, 116, kg, 06/03/19 14:55:00 EST, Dry Weight Start Date: 06/07/19 Status: Ordered ProAir HFA 90 mcg/inh inhalation aerosol with adapter 2, puffs, Inhalation, Every 4 hours, PRN, # 8.5 Gm, Refills 0, Tot. Refills 0, Maintenance, 05/28/19 14:58:00 EST, Route to Pharmacy Electronically, [id number], [facility], 165, cm, 02/22/19 12:57:00 EDT, [place]. Start Date: 05/28/19 Status: Ordered propranolol 80 [...]
--- OUTSIDE RECORDS SUMMARY | 2024-02-16 15:50 | XMS_ITS | Continuity of Care Document ---
Author Organization [facility] Address [address] [facility], [address] Floor, [address] [place] [address]- Care Team Providers Care Sand Temperer Name Role Phone Cornell VALLECILLO, Miriam Sharpe Primary Care Physician Encounter [facility] [place] ACCT R [id number] Date(s): 02/08/20 - 03/09/20 [facility] [address], [address], [address] [place] [address]- [facility] Attending Physician: Admluh, Socorro Admitting Physician: Admtr, Socorro Referring Physician: Admtr, [...] 17:23:00 EDT, Route to Pharmacy Electronically, [facility] [place] Tablet, Partial fill upon patient request, 167.... Start Date: 01/03/20 Status: Ordered Snip2Code SureClick Autoinjector-aooe 140 mg/mL subcutaneous solution = 140 mg, Subcutaneous Infusion, Every 28 days, # 1 kit, 5 Refills, Maintenance, 02/08/20 9:40:00 EDT, [facility], 167.64, cm, 02/07/20 13:13:00 [...] Soft Stop, 01/27/20 16:14:00 EDT, Tablet, [facility] [place] [address] [place] [address], d/c naratriptan, 167.64, cm, 01/19/20 11:34:00 EDT, Height, 106.4, kg, 12/14/19 17:54:00 ED... Start Date: 01/27/20 Status: Ordered atorvastatin 80 mg oral tablet 1 tablet = 80 mg, By Mouth, Daily, # 30 tablet, 2 Refills, Maintenance, 02/10/20 8:57:00 EDT, Tablet, [facility] [address] [place] [address], 167.64, cm, 02/07/20 13:13:00 EDT, Height, 106.4, kg, 12/14/19 17:54:00 EDT, Dry Weight Start Date: 02/10/20 Status: Ordered busPIRone 7.5 mg oral tablet 1 tablet, By Mouth, 2 times a day, # 60 tablet, 2 Refills, Maintenance, 12/08/19 12:54:00 EDT, [facility] [place] [address] [place] [address], 167.64, cm, 12/06/19 15:16:00 EDT, Height, 104.55, kg, 12/06/19 15:16:00 EDT, Dry Weight Start Date: 12/08/19 Status: Ordered hydrochlorothiazide 25 mg oral tablet See Instructions, TAKE 1 TABLET BY MOUTH DAILY, # 30 tablet, Refills 5, Tot. Refills 5, Maintenance, Instructions Replace Required Details, Route to Pharmacy Electronically, [facility] [place], 167.64, cm, 02/07/20 13:13:00 EDT, Height, 106.4,... Start Date: 02/07/20 Status: Ordered hydrochlorothiazide 25 mg oral tablet 25 mg, 1, tablet, By Mouth, Daily, # 30 tablet, Refills 2, Tot. Refills 2, Maintenance, 11/04/19 9:33:00 EDT, Route to Pharmacy Electronically, [facility] [address] [place] [address], 168, cm, 11/03/19 14:03:00 EDT, Height, 116, [...] tablet, 0 Refills, Maintenance, 01/17/20 8:19:00 EDT, [facility] [address] [place] [address], 167.64, cm, 12/14/19 17:50:00EDT, Height, 106.4, kg, 12/14/19 17:54:00 EDT, Dry... Start Date: 01/17/20 Status: Ordered lisinopril 5 mg oral tablet 5 mg, 1, tablet, By Mouth, Daily, # 30 tablet, Refills 5, Tot. Refills 5, Maintenance, 02/07/20 13:48:00 EDT, Route to Pharmacy Electronically, [facility] [place] [address] [place] [address], 167.64, cm, 02/07/20 13:13:00 EDT, Height, 106.4, kg, ... Start Date: 02/07/20 Status: Ordered Multi Vitamin+ 0 Refills, Maintenance, 07/21/19 15:30:00 EST Start Date: 07/21/19 Status: Ordered ProAir HFA 90 mcg/inh inhalation aerosol with adapter 2, puffs, Inhalation, Every 4 hours, PRN, directed., # 8.5 Gm, Refills 5, Tot. Refills 0, Maintenance, 02/07/20 11:10:00 EDT, Route to Pharmacy Electronically, [id number], [facility] [place], 167.64, cm, 01/19/20 11... Start Date: 02/07/20 Status: Ordered Pulmicort Flexhaler 180 mcg 1 puffs, Inhalation, 2 times a day, # 1 each, 0 Refills, Maintenance, 11/04/19 11:17:00 EDT, Powder, [facility] [place], 1 puffs Inhalation 2 times a day, 168, cm, 11/03/19 14:03:00 EDT, Height, 116, kg, 06/03/19 14:55:00 EST, Dry Weight Start Date: 11/04/19 Status: Ordered tiZANidine 4 mg oral tablet 4 mg, 1, tablet, By Mouth, 3 times a day, # 90 tablet, Refills 0, Tot. Refills 0, Maintenance, 12/14/19 15:29:00 EDT, Route to Pharmacy Electronically, [facility], 167.64, cm, 12/14/19 9:02:00 EDT, Height, 106.4, kg, 12/14/19... Start Date: 12/14/19 Status: Ordered Topamax 100 mg oral tablet 1 tablet = 100 mg, By Mouth, 2 times a day, # 60 tablet, 5 Refills, Maintenance, 01/27/20 16:14:00 EDT, Tablet, [facility] - [place], [place], 167.64, cm, 01/19/20 11:34:00 EDT, Height, [...]
--- OUTSIDE RECORDS SUMMARY | 2024-02-16 15:50 | XMS_ITS | Continuity of Care Document ---
Author Organization [facility] Address [address] [place] [address]- Care Team Providers Care Breed To Wean Production Technician Name Role Phone Cornell VALLECILLO, Miriam Sharpe Primary Care Physician [place] [facility] [place] Date(s): 10/30/20 - 11/29/20 [facility] [address] [place] [id number] Attending Physician: Socorro Koch Admitting Physician: Admtr, [...] kit, 5 Refills, Maintenance, 07/10/20 9:56:00 EST, [facility], 167.6, cm, 06/06/20 14:32:00 EST, Height, 102.1, kg, 04/11/20 6:08:00 EST, Dry Weight Start Date: 07/10/20 Status: Ordered albuterol 0.083% inhalation solution 3 mL = 2.5 mg, Inhalation, Every 6 hours, PRN for wheezing/shortness of breath, # 60 each, 2 Refills, Maintenance, 08/30/20 14:43:00 EDT, Solution, [facility] [address] [place] [address], [place], Partial fill upon patient request if the prescription is... Start Date: 08/30/20 Status: Ordered allopurinol 300 mg oral tablet 300 mg, 1, tablet, By Mouth, Daily, # 30 tablet, Refills 0, Maintenance, 09/30/19 15:52:00 EDT Start Date: 09/30/19 Status: Ordered budesonide 1 mg/2 mL inhalation suspension 1 vials, Inhalation, Daily, # 60 mL, 5 Refills, Maintenance, 11/10/20 12:54:00 EDT, [facility] [address] [place] [address], [place], 168, cm, 10/30/20 10:27:00 EDT, Height, 98.5, kg, 08/03/20 15:21:00 EST, Dry Weight Start Date: 11/10/20 Status: Ordered busPIRone 7.5 mg oral tablet 1 tablet, By Mouth, 2 times a day, # 60 tablet, 2 Refills, Maintenance, 09/13/20 15:06:00 EDT, [facility] [address] [place] [address], [place], 168, cm, 08/03/20 15:21:00 EST, Height, 98.5, kg, 08/03/20 15:21:00 EST, Dry Weight Start Date: 09/13/20 Status: Ordered hydrochlorothiazide 25 mg oral tablet 25 mg, 1, tablet, By Mouth, Daily, # 30 tablet, Refills 5, Tot. Refills 5, Maintenance, 08/07/20 8:58:00 EST, Route to Pharmacy Electronically, [facility] [address] [place] [address], [place], 168, cm,08/03/20 15:21:00 EST, Height, 98.5, kg, [...] tablet, 1 Refills, Maintenance, 10/11/20 12:51:00 EDT, [facility] [address] [place] [address], [place], 168, cm, 09/29/20 8:43:00 EDT, Height, 98.5, kg, 08/03/20 15:21:00 EST, Dry Weight Start Date: 10/11/20 Status: Ordered lisinopril 5 mg oral tablet 1, tablet, By Mouth, Daily, # 30 tablet, Refills 2, Tot. Refills 2, Maintenance, 10/11/20 12:52:00 EDT, Route to Pharmacy Electronically, [facility] [address] [place] [address], [place], 168, cm, 09/29/20 8:43:00 EDT, Height, 98.5, [...] tablet, 0 Refills, Maintenance, 10/13/20 21:48:00 EDT, [facility] [address] [place] [address], [place], 168, cm, 09/29/20 8:43:00 EDT, Height, 98.5, kg, 08/03/20 15:21:00 EST, D... Start Date: 10/13/20 Status: Ordered ProAir HFA 90 mcg/inh inhalation aerosol with adapter 2, puffs, Inhalation, Every 4 hours, PRN, directed., # 8.5 Gm, Refills 5, Tot. Refills 5, Maintenance, 09/26/20 12:18:00 EDT, Route to Pharmacy Electronically, [id number], [facility] [address] [place] [address], 168... Start Date: 09/26/20 Status: Ordered Probiotic Formula By Mouth, Daily, 0 Refills, Maintenance, 07/21/20 11:13:00 EST, Partial fill upon patient request if the prescription is for a schedule II opioid drug. Start Date: 07/21/20 Status: Ordered rosuvastatin 20 mg oral capsule 1 capsule = 20 mg, By Mouth, Daily, # 30 capsule, 5 Refills, Maintenance, 10/11/20 12:53:00 EDT, Capsule, [facility] [address] [place] [address], Partial fill upon patient request if the prescription is for a schedule II opioid drug., 168, cm,... Start Date: 10/11/20 Status: Ordered Singulair 10 mg oral tablet 10 mg, 1, tablet, By Mouth, Daily, # 30 tablet, Refills 5, Tot. Refills 5, Maintenance, 11/10/20 12:55:00 EDT, Route to Pharmacy Electronically, [facility] [address] [place] [address], Partialfill upon patient request if the prescription is fo... Start Date: 11/10/20 Status: Ordered Topamax 100 mg oral tablet 1 tablet = 100 mg, By Mouth, 2 times a day, # 60 tablet, 5 Refills, Maintenance, 07/27/20 11:36:00 EST, Tablet, [facility] [address] [place] [address], 167.6, cm, 07/21/20 11:11:00 EST, Height, 102.1, kg, 04/11/20 6:08:00 EST, Dry Weight Start Date: 07/27/20 Stop Date: 01/23/21 Status: Ordered Zofran 4 mg oral tablet 1 tablet = 4 mg, By Mouth, Every 8 hours, PRN as needed for nausea/vomiting, # 15 tablet, 0 Refills, Maintenance, 08/03/20 15:17:00 EST, Tablet, [facility] [place], [place], Partialfill upon patient request if the [...]
--- OUTSIDE RECORDS SUMMARY | 2024-02-16 15:50 | XMS_ITS | Continuity of Care Document ---
Author Organization [facility] Address Unknown Care Team Providers Care Supervisor Broadloom Name Role Phone Cornell VALLECILLO, Miriam Sharpe Primary Care Physician Encounter [facility] [place] Date(s): 01/16/21 - 02/15/21 [facility] Attending Physician: AdmSocorro arvizu Admitting Physician: AdmtrSocorro Referring Physician: Admtr, Ar8 Allergies, Adverse Reactions, [...] kit, 5 Refills, Maintenance, 12/31/20 19:35:00 EDT, [facility], 168, cm, 12/05/20 15:50:00 EDT, Height, 94.5, kg, 12/05/20 15:50:00 EDT, Dry Weight Start Date: 12/31/20 Status: Ordered albuterol 0.083% inhalation solution 3 mL = 2.5 mg, Inhalation, Every 6 hours, PRN for wheezing/shortness of breath, # 60 each, 5 Refills, Maintenance, 12/03/20 14:36:00 EDT, Solution, [facility] [address] [place] [address], [place], Partial fill upon patient request if the prescription is... Start Date: 12/03/20 Status: Ordered allopurinol 300 mg oral tablet 300 mg, 1, tablet, By Mouth, Daily, # 30 tablet, Refills 0, Maintenance, 09/30/19 15:52:00 EDT Start Date: 09/30/19 Status: Ordered budesonide 1 mg/2 mL inhalation suspension 1 vials, Inhalation, Daily, # 60 mL, 5 Refills, Maintenance, 11/10/20 12:54:00 EDT, [facility] [address] [place] [address], [place], 168, cm, 10/30/20 10:27:00 EDT, Height, 98.5, kg, 08/03/20 15:21:00 EST, Dry Weight Start Date: 11/10/20 Status: Ordered hydrochlorothiazide 25 mg oral tablet 1, tablet, By Mouth, Daily, # 30 tablet, Refills 5, Route to Pharmacy Electronically, [facility], 168, cm, 01/24/21 15:18:00 EDT, Height, 94.5, [...] tablet, 1 Refills, Maintenance, 10/11/20 12:51:00 EDT, [facility] [address] [place] [address], [place], 168, cm, 09/29/20 8:43:00 EDT, Height, 98.5, kg, 08/03/20 15:21:00 EST, Dry Weight Start Date: 10/11/20 Status: Ordered lisinopril 5 mg oral tablet 1, tablet, By Mouth, Daily, # 30 tablet, Refills 0, Tot. Refills 0, Maintenance, 01/12/21 9:00:00 EDT, Route to Pharmacy Electronically, [facility], 168, cm, 12/05/20 15:50:00 EDT, Height, 94.5, kg, 12/05/20 15:50:00 EDT, Dry Weight Start Date: 01/12/21 Status: Ordered multivitamin Lipotropic with Multivitamins oral [...] Replace Required Details, Route to Pharmacy Electronically, [facility] [address] [place] [address],... Start Date: 12/05/20 Status: Ordered omeprazole 40 [...] VOMITING, # 30 tablet, 1 Refills, Maintenance, 01/12/21 18:13:00 EDT, [facility] [place] [address] [place] [address], 168, cm, 12/05/20 15:50:00 EDT, Height, 94.5, kg, 12/05/20 15:50:00 EDT,... Start Date: 01/12/21 Status: Ordered ProAir HFA 90 mcg/inh inhalation aerosol with adapter 2, puffs, Inhalation, Every 4 hours, PRN, directed., # 8.5 Gm, Refills 5, Tot. Refills 5, Maintenance, 01/24/21 15:40:00 EDT, Route to Pharmacy Electronically, [id number], [facility] [address] [place] [address], 168... Start Date: 01/24/21 Status: Ordered Probiotic Formula By Mouth, Daily, 0 Refills, Maintenance, 07/21/20 11:13:00 EST, Partial fill upon patient request if the prescription is for a schedule II opioid drug. Start Date: 07/21/20 Status: Ordered rosuvastatin 20 mg oral capsule 1 capsule = 20 mg, By Mouth, Daily, # 30 capsule, 5 Refills, Maintenance, 10/11/20 12:53:00 EDT, Capsule, [facility] [place], [place], Partial fill upon patient request if the prescription is for a schedule II opioid drug., 168, cm,... Start Date: 10/11/20 Status: Ordered topiramate 100 mg oral tablet 1 tablet, By Mouth, 2 times a day, # 60 tablet, 0 Refills, Maintenance, 01/10/21 12:37:00 EDT, [facility], 168, cm, 12/05/20 15:50:00 EDT, Height, 94.5, kg, 12/05/20 15:50:00 EDT, Dry Weight Start Date: 01/10/21 Status: Ordered Problem List Condition Effective Dates [...]
--- OUTSIDE RECORDS SUMMARY | 2024-02-16 15:51 | XMS_ITS | Continuity of Care Document ---
Author Organization [facility] Address [address] [place] [address]- Care Team Providers Care Maternal Fetal Physician Name Role Phone Cornell VALLECILLO, Miriam Sharpe Primary Care Physician Encounter [facility] [place] Date(s): 11/29/19 - 12/29/19 [facility] [address] [place] [id number]- [facility] Attending Physician: Socorro Koch Admitting Physician: AdmSocorro arvizu Referring Physician: [id number] Allergies, Adverse Reactions, Alerts Substance Reaction Severity [...] Medications acetaminophen-oxyCODONE 325 mg-5 mg oral tablet See Instructions, PRN, 1-2 tablets By Mouth Every 4 hours, # 60 tablet, Refills 0, Tot. Refills 0, Maintenance, Pain , Moderate, 12/14/19 15:28:00 EDT, Instructions Replace Required Details, Route toPharmacy Electronically, [facility]... Start Date: 12/14/19 Status: Ordered allopurinol 300 mg oral tablet 300 mg, 1, tablet, By Mouth, Daily, # 30 tablet, Refills 0, Maintenance, 09/30/19 15:52:00 EDT Start Date: 09/30/19 Status: Ordered atorvastatin 40 mg oral tablet 1 tablet, By Mouth, Daily, # 30 tablet, 0 Refills, Maintenance, 12/13/19 9:07:00 EDT, [facility] [place], 167.64, cm, 12/06/19 15:16:00 EDT, Height, 104.55, kg, 12/06/19 15:16:00 EDT, Dry Weight Start Date: 12/13/19 Status: Ordered busPIRone 7.5 mg oral tablet 1 tablet, By Mouth, 2 times a day, # 60 tablet, 2 Refills, Maintenance, 12/08/19 12:54:00 EDT, [facility] [place], 167.64, cm, 12/06/19 15:16:00 EDT, Height, 104.55, kg, 12/06/19 15:16:00 EDT, Dry Weight Start Date: 12/08/19 Status: Ordered hydrochlorothiazide 25 mg oral tablet 25 mg, 1, tablet, By Mouth, Daily, # 30 tablet, Refills 2, Tot. Refills 2, Maintenance, 11/04/19 9:33:00 EDT, Route to Pharmacy Electronically, [facility] [place], 168, [...] tablet, 0 Refills, Maintenance, 12/13/19 14:39:00 EDT, [facility] [place], 167.64, cm, 12/06/19 15:16:00 EDT, Height, 104.55, kg, 12/06/19 15:16:00 EDT, Dry Weight Start Date: 12/13/19 Status: Ordered lisinopril 5 mg oral tablet 5 mg, 1, tablet, By Mouth, Daily, # 30 tablet, Refills 2, Tot. Refills 2, Maintenance, 11/04/19 9:34:00 EDT, Route to Pharmacy Electronically, [facility] [place], 168, cm, 11/03/19 14:03:00 EDT, Height, 116, kg, 06/03/19 14:55:00 EST,... Start Date: 11/04/19 Status: Ordered Medrol Dosepak 4 mg oral tablet See Instructions, 1 pack/packet By Mouth Daily 6 days, # 1 pack/packet, 0 Refills, Maintenance, 12/28/19 6:48:00 EDT, Tablet, [facility] [place], f/u with [...] 11/12/20 16:16:00 EDT, 10/13/19 16:15:00 EDT, Tablet, [facility] [place], tried sumatriptan , eletriptan , ri... Start Date: 10/13/19 Stop Date: 11/12/20 Status: Ordered ProAir HFA 90 mcg/inh inhalation aerosol with adapter 2, puffs, Inhalation, Every 4 hours, PRN, # 8.5 Gm, Refills 5, Tot. Refills 0, Maintenance, 10/27/19 11:07:00 EDT, Route to Pharmacy Electronically, [id number], [facility], 168, cm, 10/19/19 8:27:00 EDT, Height... Start Date: 10/27/19 Status: Ordered Pulmicort Flexhaler 180 mcg 1 puffs, Inhalation, 2 times a day, # 1 each, 0 Refills, Maintenance, 11/04/19 11:17:00 EDT, Powder, [facility] [place], 1 puffs Inhalation 2 times a day, 168, cm, 11/03/19 14:03:00 EDT, Height, 116, kg, 06/03/19 14:55:00 EST, Dry Weight Start Date: 11/04/19 Status: Ordered tiZANidine 4 mg oral tablet 4 mg, 1, tablet, By Mouth, 3 times a day, # 90 tablet, Refills 0, Tot. Refills 0, Maintenance, 12/14/19 15:29:00 EDT, Route to Pharmacy Electronically, [facility] [place], 167.64, cm, 12/14/19 9:02:00 EDT, Height, 106.4, kg, 12/14/19... Start Date: 12/14/19 Status: Ordered topiramate 25 mg oral tablet 3 tablet = 75 mg, By Mouth, 2 times a day, dose increase, # 180 tablet, 5 Refills, Maintenance, 10/13/19 16:12:00 EDT, Tablet, [facility] - [place], 168, cm, 10/01/19 8:15:00 [...]
--- OUTSIDE RECORDS SUMMARY | 2024-02-16 15:51 | XMS_ITS | Continuity of Care Document ---
Author Organization [facility] Address Unknown Care Team Providers Care Washroom Cleaner Name Role Phone Cornell VALLECILLO, Miriam Sharpe Primary Care Physician Encounter [facility] Date(s): 03/21/21 - 04/20/21 [facility] Allergies, Adverse Reactions, Alerts Substance Reaction Severity [...] kit, 5 Refills, Maintenance, 12/31/20 19:35:00 EDT, [facility], 168, cm, 12/05/20 15:50:00 EDT, Height, 94.5, kg, 12/05/20 15:50:00 EDT, Dry Weight Start Date: 12/31/20 Status: Ordered albuterol 0.083% inhalation solution 3 mL = 2.5 mg, Inhalation, Every 6 hours, PRN for wheezing/shortness of breath, # 60 each, 5 Refills, Maintenance, 12/03/20 14:36:00 EDT, Solution, [facility] - [place], [place], Partial fill upon patient request if the prescription is... Start Date: 12/03/20 Status: Ordered allopurinol 300 mg oral tablet 300 mg, 1, tablet, By Mouth, Daily, # 30 tablet, Refills 0, Maintenance, 09/30/19 15:52:00 EDT Start Date: 09/30/19 Status: Ordered budesonide 1 mg/2 mL inhalation suspension 1 vials, Inhalation, Daily, # 60 mL, 5 Refills, Maintenance, 11/10/20 12:54:00 EDT, [facility] [address] [place] [address], 168, cm, 10/30/20 10:27:00 EDT, Height, 98.5, kg, 08/03/20 15:21:00 EST, Dry Weight Start Date: 11/10/20 Status: Ordered hydrochlorothiazide 25 mg oral tablet 1, tablet, By Mouth, Daily, # 30 tablet, Refills 5, Route to Pharmacy Electronically, [facility] [place], 168, cm, 01/24/21 15:18:00 EDT, Height, 94.5, [...] tablet, 1 Refills, Maintenance, 10/11/20 12:51:00 EDT, [facility] [address], 168, cm, 09/29/20 8:43:00 EDT, Height, 98.5, kg, 08/03/20 15:21:00 EST, Dry Weight Start Date: 10/11/20 Status: Ordered lisinopril 5 mg oral tablet 1, tablet, By Mouth, Daily, # 30 tablet, Refills 0, Tot. Refills 0, Maintenance, 01/12/21 9:00:00 EDT, Route to Pharmacy Electronically, [facility] [place], 168, cm, 12/05/20 15:50:00 EDT, Height, 94.5, [...] Replace Required Details, Route to Pharmacy Electronically, [facility] [address] [place] [address],... Start Date: 12/05/20 Status: Ordered omeprazole 40 [...] tablet, 1 Refills, Maintenance, 03/27/21 8:34:00 EDT, [facility] [address] [place] [address], [place], 168, cm, 01/24/21 15:18:00 EDT, Height, 94.5, kg, 12/05/20 15:50:00 EDT, DChris.. Start Date: 03/27/21 Status: Ordered ProAir HFA 90 mcg/inh inhalation aerosol with adapter 2, puffs, Inhalation, Every 4 hours, PRN, directed., # 8.5 Gm, Refills 5, Tot. Refills 5, Maintenance, 01/24/21 15:40:00 EDT, Route to Pharmacy Electronically, [id number], [facility] [place] [address] [place] [address], 168... Start Date: 01/24/21 Status: Ordered Probiotic Formula By Mouth, Daily, 0 Refills, Maintenance, 07/21/20 11:13:00 EST, Partial fill upon patient request if the prescription is for a schedule II opioid drug. Start Date: 07/21/20 Status: Ordered rosuvastatin 20 mg oral tablet 1 tablet, By Mouth, Daily, # 30 tablet, 0 Refills, [facility], 168, cm, 01/24/21 15:18:00 EDT, Height, 94.5, kg, 12/05/20 15:50:00 EDT, Dry Weight Start Date: 04/17/21 Status: Ordered topiramate 100 mg oral tablet 1 tablet, By Mouth, 2 times a day, # 60 tablet, 5 Refills, Maintenance, 03/25/21 17:43:00 EDT, [facility] - [place], [place], 168, cm, 01/24/21 15:18:00 EDT, Height, 94.5, [...]
--- OUTSIDE RECORDS SUMMARY | 2024-02-16 15:51 | XMS_ITS | Continuity of Care Document ---
Author Organization [facility] Address [address] [facility], [address] d Floor, [address] [place] [address]- Care Team Providers Care Wheat Washer Name Role Phone Cornell VALLECILLO, Miriam Sharpe Primary Care Physician Encounter [facility] Date(s): 01/27/20 - 02/26/20 [facility] [address], [address], [address] [place] [address]- [facility] Allergies, Adverse Reactions, Alerts Substance Reaction [...] 01/03/20 17:23:00 EDT, Route to Pharmacy Electronically, [facility] [place], Partial fill upon patient request, 167.... Start Date: 01/03/20 Status: Ordered Aimovig SureClick Autoinjector-aooe 140 mg/mL subcutaneous solution = 140 mg, Subcutaneous Infusion, Every 28 days, # 1 kit, 5 Refills, Maintenance, 02/08/20 9:40:00 EDT, [facility], 167.64, cm, 02/07/20 [...] Refills, Soft Stop, 01/27/20 16:14:00 EDT, Tablet, [facility] [place], d/c naratriptan, 167.64, cm, 01/19/20 11:34:00 EDT, Height, 106.4, kg, 12/14/19 17:54:00 ED... Start Date: 01/27/20 Status: Ordered atorvastatin 80 mg oral tablet 1 tablet = 80 mg, By Mouth, Daily, # 30 tablet, 2 Refills, Maintenance, 02/10/20 8:57:00 EDT, Tablet, [facility] [address] [place] [address] [place], 167.64, cm, 02/07/20 13:13:00 EDT, Height, 106.4, kg, 12/14/19 17:54:00 EDT, Dry Weight Start Date: 02/10/20 Status: Ordered busPIRone 7.5 mg oral tablet 1 tablet, By Mouth, 2 times a day, # 60 tablet, 2 Refills, Maintenance, 12/08/19 12:54:00 EDT, [facility] [address] [place] [address], 167.64, cm, 12/06/19 15:16:00 EDT, Height, 104.55, kg, 12/06/19 15:16:00 EDT, Dry Weight Start Date: 12/08/19 Status: Ordered hydrochlorothiazide 25 mg oral tablet See Instructions, TAKE 1 TABLET BY MOUTH DAILY, # 30 tablet, Refills 5, Tot. Refills 5, Maintenance, Instructions Replace Required Details, Route to Pharmacy Electronically, [facility] [place], 167.64, cm, 02/07/20 13:13:00 EDT, Height, 106.4,... Start Date: 02/07/20 Status: Ordered hydrochlorothiazide 25 mg oral tablet 25 mg, 1, tablet, By Mouth, Daily, # 30 tablet, Refills 2, Tot. Refills 2, Maintenance, 11/04/19 9:33:00 EDT, Route to Pharmacy Electronically, [facility] [place] [address] [place] [address], 168, cm, 11/03/19 14:03:00 EDT, Height, 116, [...] tablet, 0 Refills, Maintenance, 01/17/20 8:19:00 EDT, [facility] [place] [address] [place] [address], 167.64, cm, 12/14/19 17:50:00EDT, Height, 106.4, kg, 12/14/19 17:54:00 EDT, Dry... Start Date: 01/17/20 Status: Ordered lisinopril 5 mg oral tablet 5 mg, 1, tablet, By Mouth, Daily, # 30 tablet, Refills 5, Tot. Refills 5, Maintenance, 02/07/20 13:48:00 EDT, Route to Pharmacy Electronically, [facility] [place] [address] [place] [address], 167.64, cm, 02/07/20 13:13:00 EDT, Height, 106.4, kg, ... Start Date: 02/07/20 Status: Ordered Multi Vitamin+ 0 Refills, Maintenance, 07/21/19 15:30:00 EST Start Date: 07/21/19 Status: Ordered ProAir HFA 90 mcg/inh inhalation aerosol with adapter 2, puffs, Inhalation, Every 4 hours, PRN, directed., # 8.5 Gm, Refills 5, Tot. Refills 0, Maintenance, 02/07/20 11:10:00 EDT, Route to Pharmacy Electronically, [id number], [facility] [place], 167.64, cm, 01/19/20 11... Start Date: 02/07/20 Status: Ordered Pulmicort Flexhaler 180 mcg 1 puffs, Inhalation, 2 times a day, # 1 each, 0 Refills, Maintenance, 11/04/19 11:17:00 EDT, Powder, [facility] - [place], 1 puffs Inhalation 2 times a day, 168, cm, 11/03/19 14:03:00 EDT, Height, 116, kg, 06/03/19 14:55:00 EST, Dry Weight Start Date: 11/04/19 Status: Ordered tiZANidine 4 mg oral tablet 4 mg, 1, tablet, By Mouth, 3 times a day, # 90 tablet, Refills 0, Tot. Refills 0, Maintenance, 12/14/19 15:29:00 EDT, Route to Pharmacy Electronically, [facility] #31 - [place], 167.64, cm, 12/14/19 9:02:00 EDT, Height, 106.4, kg, 12/14/19... Start Date: 12/14/19 Status: Ordered Topamax 100 mg oral tablet 1 tablet = 100 mg, By Mouth, 2 times a day, # 60 tablet, 5 Refills, Maintenance, 01/27/20 16:14:00 EDT, Tablet, [facility] [place] #31 - [place], [place], 167.64, cm, 01/19/20 11:34:00 EDT, Height, [...]
--- OUTSIDE RECORDS SUMMARY | 2024-02-16 15:51 | XMS_ITS | Continuity of Care Document ---
Author Organization [facility] Address [address] [place] [address] [address], [address] [place] [address]- Care Team Providers Care Data Power Consultant Name Role Phone Cornell VALLECILLO, Miriam Sharpe Primary Care Physician Encounter [facility] Date(s): 03/22/20 - 03/29/20 [facility] [address] [place] [address] Drive, [address] [place] [address]- [facility] Attending Physician: Todd Gallo MD Allergies, Adverse [...] 01/03/20 17:23:00 EDT, Route to Pharmacy Electronically, [facility] [place], Partial fill upon patient request, 167.... Start Date: 01/03/20 Status: Ordered Aimovig SureClick Autoinjector-aooe 140 mg/mL subcutaneous solution = 140 mg, Subcutaneous Infusion, Every 28 days, # 1 kit, 5 Refills, Maintenance, 02/08/20 9:40:00 EDT, [facility], 167.64, cm, 02/07/20 13:13:00 [...] Refills, Soft Stop, 01/27/20 16:14:00 EDT, Tablet, [facility], [place], d/c naratriptan, 167.64, cm, 01/19/20 11:34:00 EDT, Height, 106.4, kg, 12/14/19 17:54:00 ED... Start Date: 01/27/20 Status: Ordered atorvastatin 80 mg oral tablet 1 tablet = 80 mg, By Mouth, Daily, # 30 tablet, 2 Refills, Maintenance, 02/10/20 8:57:00 EDT, Tablet, [facility], [place], 167.64, cm, 02/07/20 13:13:00 EDT, Height, 106.4, kg, 12/14/19 17:54:00 EDT, Dry Weight Start Date: 02/10/20 Status: Ordered busPIRone 7.5 mg oral tablet 1 tablet, By Mouth, 2 times a day, # 60 tablet, 5 Refills, Maintenance, 03/17/20 14:27:00 EDT, [facility] [place], 167.64, cm, 02/07/20 13:13:00 EDT, Height, 106.4, kg, 12/14/19 17:54:00 EDT, Dry Weight Start Date: 03/17/20 Status: Ordered hydrochlorothiazide 25 mg oral tablet See Instructions, TAKE 1 TABLET BY MOUTH DAILY, # 30 tablet, Refills 5, Tot. Refills 5, Maintenance, Instructions Replace Required Details, Route to Pharmacy Electronically, [facility] [place], 167.64, cm, 02/07/20 13:13:00 EDT, Height, 106.4,... Start Date: 02/07/20 Status: Ordered hydrochlorothiazide 25 mg oral tablet 25 mg, 1, tablet, By Mouth, Daily, # 30 tablet, Refills 2, Tot. Refills 2, Maintenance, 11/04/19 9:33:00 EDT, Route to Pharmacy Electronically, [facility] [place] [address] [place] [address], 168, cm, 11/03/19 14:03:00 EDT, Height, 116, [...] tablet, 0 Refills, Maintenance, 01/17/20 8:19:00 EDT, [facility] [address] [place] [address], 167.64, cm, 12/14/19 17:50:00EDT, Height, 106.4, kg, 12/14/19 17:54:00 EDT, Dry... Start Date: 01/17/20 Status: Ordered lisinopril 5 mg oral tablet 5 mg, 1, tablet, By Mouth, Daily, # 30 tablet, Refills 5, Tot. Refills 5, Maintenance, 02/07/20 13:48:00 EDT, Route to Pharmacy Electronically, [facility] [place] [address] [place] [address], [place], 167.64, cm, 02/07/20 13:13:00 EDT, Height, 106.4, kg, ... Start Date: 02/07/20 Status: Ordered Multi Vitamin+ 0 Refills, Maintenance, 07/21/19 15:30:00 EST Start Date: 07/21/19 Status: Ordered ProAir HFA 90 mcg/inh inhalation aerosol with adapter 2, puffs, Inhalation, Every 4 hours, PRN, directed., # 8.5 Gm, Refills 5, Tot. Refills 0, Maintenance, 02/07/20 11:10:00 EDT, Route to Pharmacy Electronically, [id number], [facility] [place], 167.64, cm, 01/19/20 11... Start Date: 02/07/20 Status: Ordered Pulmicort Flexhaler 180 mcg 1 puffs, Inhalation, 2 times a day, # 1 each, 0 Refills, Maintenance, 11/04/19 11:17:00 EDT, Powder, [facility] #[facility] - [place], 1 puffs Inhalation 2 times a day, 168, cm, 11/03/19 14:03:00 EDT, Height, 116, kg, 06/03/19 14:55:00 EST, Dry Weight Start Date: 11/04/19 Status: Ordered tiZANidine 4 mg oral tablet 4 mg, 1, tablet, By Mouth, 3 times a day, # 90 tablet, Refills 0, Tot. Refills 0, Maintenance, 12/14/19 15:29:00 EDT, Route to Pharmacy Electronically, [facility] - [facility], 167.64, cm, 12/14/19 9:02:00 EDT, Height, 106.4, kg, 12/14/19... Start Date: 12/14/19 Status: Ordered Topamax 100 mg oral tablet 1 tablet = 100 mg, By Mouth, 2 times a day, # 60 tablet, 5 Refills, Maintenance, 01/27/20 16:14:00 EDT, Tablet, [facility] #31 - [place], [place], 167.64, cm, 01/19/20 11:34:00 EDT, Height, [...] oldest [Reference Range]: 1 Height 167.64 cm (03/21/20 2:18 PM) Weight 102.1 kg (03/21/20 2:18 PM) Body Mass Index [18.5-24.99] 36.33 *>HHI* (03/21/20 2:18 PM) Social History Social History Type Response Smoking Status Former smoker; Tobac co user in household: No; Type: Cigarettes entered on: 04/24/15 Sex Female
--- OUTSIDE RECORDS SUMMARY | 2024-02-16 15:51 | XMS_ITS | Continuity of Care Document ---
Author Organization [facility] Address [address] [place] [address] [address], [address] [place] [address]- Care Team Providers Care Gang Vibrator Operator Name Role Phone Miriam Sarabia MD Primary Care Physician [place] [facility]/01[place]20 - 05/31/20 [facility] [address] [place] [address] Drive, [address] [place], [place] [address] Allergies, Adverse Reactions, Alerts Substance Reaction [...] kit, 5 Refills, Maintenance, 02/08/20 9:40:00 EDT, [facility], 167.64, cm, 02/07/20 13:13:00 [...] 11:25:00 EST, Tablet, [facility] [facility], [place], 167.6, cm, 04/11/20 6:08:00 EST, Height, 102.1, [...] 11/04/19 9:33:00 EDT, Route to Pharmacy Electronically, [facility] [address] [place] [address], 168, cm, 11/03/19 14:03:00 EDT, Height, 116, [...] 04/20/20 16:15:00 EST, [facility] [facility], [place], 167.6, cm, 04/11/20 6:08:00 EST, Height, 102.1, kg, 04/11/20 6:08:00 EST, Dry We... Start Date: 04/20/20 Status: Ordered lisinopril 5 mg oral tablet 5 mg, 1, tablet, By Mouth, Daily, # 30 tablet, Refills 5, Tot. Refills 5, Maintenance, 02/07/20 13:48:00 EDT, Route to Pharmacy Electronically, [facility] [place] [address] [place] [address], [place], 167.64, cm, 02/07/20 13:13:00 EDT, Height, 106.4, kg, 12/13/... Start Date: 02/07/20 Status: Ordered Multi Vitamin+ 0 Refills, Maintenance, 07/21/19 15:30:00 EST Start Date: 07/21/19 Status: Ordered Neurontin 300 mg oral capsule 300 mg, 1, capsule, By Mouth, 3 times a day, # 30 tablet, Refills 0, Tot. Refills 0, Maintenance, 04/11/20 15:24:00 EST, Route to Pharmacy Electronically, [facility] [address] [place] [address], 167.6, cm, 04/11/20 6:08:00 EST, Height, 102.1, k... Start Date: 04/11/20 Status: Ordered ondansetron 8 mg oral tablet 1 tablet, By Mouth, 2 times a day, PRN NEEDED FOR NAUSEA/ VOMITING, # 30 tablet, 0 Refills, Maintenance, 05/19/20 8:29:00 EST, [facility], 167.6, cm, 05/09/20 16:10:00 EST, Height, 102.1, kg, 04/11/20 6:08:00 EST, Dry Weight Start Date: 05/19/20 Status: Ordered oxyCODONE 10 mg oral tablet 1 tablet = 10 mg, By Mouth, Every 8 hours, PRN as needed for pain, # 21 tablet, 0 Refills, Maintenance, 05/02/20 17:15:00 EST, Tablet, [facility] [address] [place] [address], [place], Partial fill uponpatient request, 167.6, cm, 04/11/20 6:08:00 EST, H... Start Date: 05/02/20 Stop Date: 05/09/20 Status: Ordered oxyCODONE 5 mg oral tablet 5 mg, 1, tablet, By Mouth, Every 8 hours, PRN, # 21 tablet, Refills 0, Tot. Refills 0, Maintenance,as needed for pain, 05/08/20 16:01:00 EST, Route to Pharmacy Electronically, [facility] [address] [place] [address], Partial fill upon patient r... Start Date: 05/08/20 Status: Ordered ProAir HFA 90 mcg/inh inhalation aerosol with adapter 2, puffs, Inhalation, Every 4 hours, PRN, directed., # 8.5 Gm, Refills 0, Tot. Refills 0, Maintenance, 05/29/20 8:22:00 EST, Route to Pharmacy Electronically, [id number],[facility] [address] [place] [address], 167.... Start Date: 05/29/20 Status: Ordered Pulmicort Flexhaler 180 mcg 1 puffs, Inhalation, 2 times a day, # 1 each, 0 Refills, Maintenance, 11/04/19 11:17:00 EDT, Powder, [facility] [address] [place] [address], 1 puffs Inhalation 2 times a day, 168, cm, 11/03/19 14:03:00 EDT, Height, 116, kg, 06/03/19 14:55:00 EST, Dry Weight Start Date: 11/04/19 Status: Ordered Topamax 100 mg oral tablet 1 tablet = 100 mg, By Mouth, 2 times a day, # 60 tablet, 5 Refills, Maintenance, 01/27/20 16:14:00 EDT, Tablet, [facility] [address] [place] [address], 167.64, cm, 01/19/20 11:34:00 EDT, Height, 106.4, kg, 12/14/19 17:54:00 EDT, Dry Weight Start Date: 01/27/20 Stop Date: 07/25/20 Status: Ordered Valium 5 mg oral tablet 5 mg, 1, tablet, By Mouth, 3 times a day, PRN, # 30 tablet, Refills 0, Tot. Refills 0, Maintenance,Spasm, 04/11/20 15:24:00 EST, Route to Pharmacy Electronically, [facility] [address] [place] [address], 167.6, cm, 04/11/20 6:08:00 EST, Height,... Start [...]
--- OUTSIDE RECORDS SUMMARY | 2024-02-16 15:51 | XMS_ITS | Continuity of Care Document ---
Author Organization [facility] Address [address] [place] [address] [address], [address] [place] [address]- Care Team Providers Care Client Experience Consultant Name Role Phone Cornell VALLECILLO, Miriam Sharpe Primary Care Physician Encounter [facility] Date(s): 10/12/20 - 11/11/[address], [address] [place], [place] [address] Allergies, Adverse Reactions, Alerts Substance [...] kit, 5 Refills, Maintenance, 07/10/20 9:56:00 EST, [facility], 167.6, cm, 06/06/20 14:32:00 EST, Height, 102.1, kg, 04/11/20 6:08:00 EST, Dry Weight Start Date: 07/10/20 Status: Ordered albuterol 0.083% inhalation solution 3 mL = 2.5 mg, Inhalation, Every 6 hours, PRN for wheezing/shortness of breath, # 60 each, 2 Refills, Maintenance, 08/30/20 14:43:00 EDT, Solution, [facility] [address] [place] [address], [place], Partial fill upon patient request if the prescription is... Start Date: 08/30/20 Status: Ordered allopurinol 300 mg oral tablet 300 mg, 1, tablet, By Mouth, Daily, # 30 tablet, Refills 0, Maintenance, 09/30/19 15:52:00 EDT Start Date: 09/30/19 Status: Ordered budesonide 1 mg/2 mL inhalation suspension 1 vials, Inhalation, Daily, # 60 mL, 5 Refills, Maintenance, 11/10/20 12:54:00 EDT, [facility] [address] [place] [address], [place], 168, cm, 10/30/20 10:27:00 EDT, Height, 98.5, kg, 08/03/20 15:21:00 EST, Dry Weight Start Date: 11/10/20 Status: Ordered busPIRone 7.5 mg oral tablet 1 tablet, By Mouth, 2 times a day, # 60 tablet, 2 Refills, Maintenance, 09/13/20 15:06:00 EDT, [facility] [address] [place] [address], [place], 168, cm, 08/03/20 15:21:00 EST, Height, 98.5, kg, 08/03/20 15:21:00 EST, Dry Weight Start Date: 09/13/20 Status: Ordered hydrochlorothiazide 25 mg oral tablet 25 mg, 1, tablet, By Mouth, Daily, # 30 tablet, Refills 5, Tot. Refills 5, Maintenance, 08/07/20 8:58:00 EST, Route to Pharmacy Electronically, [facility] [address] [place] [address], [place], 168, cm,08/03/20 15:21:00 EST, Height, 98.5, kg, [...] 10/11/20 12:51:00 EDT, [facility] #[place], 168, cm, 09/29/20 8:43:00 EDT, Height, 98.5, kg, 08/03/20 15:21:00 EST, Dry Weight Start Date: 10/11/20 Status: Ordered lisinopril 5 mg oral tablet 1, tablet, By Mouth, Daily, # 30 tablet, Refills 2, Tot. Refills 2, Maintenance, 10/11/20 12:52:00 EDT, Route to Pharmacy Electronically, [facility], 168, cm, 09/29/20 8:43:00 EDT, Height, 98.5, [...] 10/13/20 21:48:00 EDT, [facility], [place], 168, cm, 09/29/20 8:43:00 EDT, Height, 98.5, kg, 08/03/20 15:21:00 EST, D... Start Date: 10/13/20 Status: Ordered ProAir HFA 90 mcg/inh inhalation aerosol with adapter 2, puffs, Inhalation, Every 4 hours, PRN, directed., # 8.5 Gm, Refills 5, Tot. Refills 5, Maintenance, 09/26/20 12:18:00 EDT, Route to Pharmacy Electronically, [id number], [facility] [address] [place] [address], 168... Start Date: 09/26/20 Status: Ordered Probiotic [...] 12:53:00 EDT, Capsule, [facility] [address] [place] [address], Partial fill upon patient request if the prescription is for a schedule II opioid drug., 168, cm,... Start Date: 10/11/20 Status: Ordered Singulair 10 mg oral tablet 10 mg, 1, tablet, By Mouth, Daily, # 30 tablet, Refills 5, Tot. Refills 5, Maintenance, 11/10/20 12:55:00 EDT, Route to Pharmacy Electronically, [facility] [address] [place] [address], Partialfill upon patient request if the prescription is fo... Start Date: 11/10/20 Status: Ordered Topamax 100 mg oral tablet 1 tablet = 100 mg, By Mouth, 2 times a day, # 60 tablet, 5 Refills, Maintenance, 07/27/20 11:36:00 EST, Tablet, [facility] [address] [place] [address], 167.6, cm, 07/21/20 11:11:00 EST, Height, 102.1, kg, 04/11/20 6:08:00 EST, Dry Weight Start Date: 07/27/20 Stop Date: 01/23/21 Status: Ordered Zofran 4 mg oral tablet 1 tablet = 4 mg, By Mouth, Every 8 hours, PRN as needed for nausea/vomiting, # 15 tablet, 0 Refills, Maintenance, 08/03/20 15:17:00 EST, Tablet, [facility] [address] [place] [address], Partialfill upon patient request if the prescription [...]
--- OUTSIDE RECORDS SUMMARY | 2024-02-16 15:51 | XMS_ITS | Continuity of Care Document ---
Author Organization [facility] Address Unknown Care Team Providers Care Curtain Cleaner Name Role Phone Cornell VALLECILLO, Miriam Sharpe Primary Care Physician Encounter [facility] [place] R [id number] Date(s): 10/07/20 - 02/04/21 [facility] Attending Physician: Shannan Lima MD Admitting Physician: Shannan Lima MD Allergies, Adverse Reactions, Alerts Substance Reaction Severity Status codeine C/O: itching Active morphine N/V, itching, migraines Acti ve sulfa drugs Hives Active Adhesive Bandage C/O: itching Active Vicodin itching, N/V, migraines Acti ve [...] kit, 5 Refills, Maintenance, 12/31/20 19:35:00 EDT, [facility], 168, cm, 12/05/20 15:50:00 EDT, Height, 94.5, kg, 12/05/20 15:50:00 EDT, Dry Weight Start Date: 12/31/20 Status: Ordered albuterol 0.083% inhalation solution 3 mL = 2.5 mg, Inhalation, Every 6 hours, PRN for wheezing/shortness of breath, # 60 each, 5 Refills, Maintenance, 12/03/20 14:36:00 EDT, Solution, [facility] - [place], [place], Partial fill upon patient request if the prescription is... Start Date: 12/03/20 Status: Ordered allopurinol 300 mg oral tablet 300 mg, 1, tablet, By Mouth, Daily, # 30 tablet, Refills 0, Maintenance, 09/30/19 15:52:00 EDT Start Date: 09/30/19 Status: Ordered budesonide 1 mg/2 mL inhalation suspension 1 vials, Inhalation, Daily, # 60 mL, 5 Refills, Maintenance, 11/10/20 12:54:00 EDT, [facility] [address] [place] [address], [place], 168, cm, 10/30/20 10:27:00 EDT, Height, 98.5, kg, 08/03/20 15:21:00 EST, Dry Weight Start Date: 11/10/20 Status: Ordered hydrochlorothiazide 25 mg oral tablet 25 mg, 1, tablet, By Mouth, Daily, # 30 tablet, Refills 5, Tot. Refills 5, Maintenance, 08/07/20 8:58:00 EST, Route to Pharmacy Electronically, [facility] [address] [place] [address], [place], 168, cm,08/03/20 15:21:00 EST, Height, 98.5, kg, [...] tablet, 1 Refills, Maintenance, 10/11/20 12:51:00 EDT, [facility] [address] [place] [address], [place], 168, cm, 09/29/20 8:43:00 EDT, Height, 98.5, kg, 08/03/20 15:21:00 EST, Dry Weight Start Date: 10/11/20 Status: Ordered lisinopril 5 mg oral tablet 1, tablet, By Mouth, Daily, # 30 tablet, Refills 0, Tot. Refills 0, Maintenance, 01/12/21 9:00:00 EDT, Route to Pharmacy Electronically, [facility], 168, cm, 12/05/20 15:50:00 EDT, Height, [...] Replace Required Details, Route to Pharmacy Electronically, [facility] [place] [address] [place] [address],... Start Date: 12/05/20 Status: Ordered omeprazole 40 [...] tablet, 1 Refills, Maintenance, 01/12/21 18:13:00 EDT, [facility] [place] [address] [place] [address], 168, cm, 12/05/20 15:50:00 EDT, Height, 94.5, kg, 12/05/20 15:50:00 EDT,... Start Date: 01/12/21 Status: Ordered ProAir HFA 90 mcg/inh inhalation aerosol with adapter 2, puffs, Inhalation, Every 4 hours, PRN, directed., # 8.5 Gm, Refills 5, Tot. Refills 5, Maintenance, 01/24/21 15:40:00 EDT, Route to Pharmacy Electronically, [id number], [facility] [address] [place] [address], 168... Start Date: 01/24/21 Status: Ordered Probiotic Formula By Mouth, Daily, 0 Refills, Maintenance, 07/21/20 11:13:00 EST, Partial fill upon patient request if the prescription is for a schedule II opioid drug. Start Date: 07/21/20 Status: Ordered rosuvastatin 20 mg oral capsule 1 capsule = 20 mg, By Mouth, Daily, # 30 capsule, 5 Refills, Maintenance, 10/11/20 12:53:00 EDT, Capsule, [facility] [address] [place] [address], [place], Partial fill upon patient request if the prescription is for a schedule II opioid drug., 168, cm,... Start Date: 10/11/20 Status: Ordered topiramate 100 mg oral tablet 1 tablet, By Mouth, 2 times a day, # 60 tablet, 0 Refills, Maintenance, 01/10/21 12:37:00 EDT, [facility], 168, cm, 12/05/20 15:50:00 EDT, [...]
--- OUTSIDE RECORDS SUMMARY | 2024-02-16 15:51 | XMS_ITS | Continuity of Care Document ---
Author Organization [facility] ter Address [address] [place] [id number]- Care Team Providers Care Field Crop Farm Worker Name Role Phone Estella BRADSHAW, Danielle I Primary Care Physician [place] [facility] [place] [id number] Date(s): 07/21/19 - 07/21/[address] [address]- [facility] Attending Physician: Cornell VALLECILLO, Miriam Sharpe Allergies, [...] tablet, 0 Refills, Maintenance, 07/16/19 10:09:00 EST, [facility], 168, cm, 06/14/19 9:12:00 EST, [...] Daily, # 30 tablet, 0 Refills, Maintenance, 06/30/19 12:07:00 EST, Tablet, [facility] - [place], 168, cm, 06/14/19 9:12:00 EST, Height, 116, kg, 06/03/19 14:55:00 EST, Dry Weight Start Date: 06/30/19 Status: Ordered lansoprazole 30 mg oral enteric [...] Gm, Refills 0, Tot. Refills 0, Maintenance, 07/16/19 10:08:00 EST, Route to Pharmacy Electronically, [id number], [facility], 168, cm, 06/14/19 9:12:00 EST, Height... Start Date: 07/16/19 Status: Ordered topiramate 25 mg oral tablet [...]
--- OUTSIDE RECORDS SUMMARY | 2024-02-16 15:51 | XMS_ITS | Continuity of Care Document ---
Author Organization [facility] ter Address [address] [place] [id number]- Care Team Providers Care Munitions Worker Name Role Phone Cornell VALLECILLO, Miriam Sharpe Primary Care Physician [place] [facility] [place]14[place] - 12/15/[address] [address]- [facility] Discharge Disposition: A-D/C Home Attending Physician: Todd [...] 11/04/19 9:34:00 EDT, Route to Pharmacy Electronically, [facility] - [place], 168, cm, 11/03/19 14:03:00 EDT, Height, 116, kg, 06/03/19 14:55:00 EST,... Start Date: 11/04/19 Status: Ordered Multi Vitamin+ 0 Refills, Maintenance, 07/21/19 15:30:00 EST Start Date: 07/21/19 Status: Ordered naratriptan 2.5 mg oral tablet 1 tablet = 2.5 mg, By Mouth, Daily, PRN for migraine headache, may repeat dose once in 4 hours, # 9tablet, 2 Refills, Acute 11/12/20 16:16:00 EDT, 10/13/19 16:15:00 EDT, Tablet, [facility] - [place], tried sumatriptan , eletriptan , ri... Start Date: 10/13/19 Stop Date: 11/12/20 Status: Ordered ProAir HFA 90 mcg/inh inhalation aerosol with adapter 2, puffs, Inhalation, Every 4 hours, PRN, # 8.5 Gm, Refills 5, Tot. Refills 0, Maintenance, 10/27/19 11:07:00 EDT, Route to Pharmacy Electronically, [id number], [facility] [place], 168, cm, 10/19/19 8:27:00 EDT, Height... Start Date: 10/27/19 Status: Ordered Pulmicort Flexhaler 180 mcg 1 puffs, Inhalation, 2 times a day, # 1 each, 0 Refills, Maintenance, 11/04/19 11:17:00 EDT, Powder, [facility] - [place], 1 puffs Inhalation 2 times a day, 168, cm, 11/03/19 14:03:00 EDT, Height, 116, kg, 06/03/19 14:55:00 EST, Dry Weight Start Date: 11/04/19 Status: Ordered tiZANidine 4 mg oral tablet 4 mg, 1, tablet, By Mouth, 3 times a day, # 90 tablet, Refills 0, Tot. Refills 0, Maintenance, 12/14/19 15:29:00 EDT, Route to Pharmacy Electronically, [facility] - [place], 167.64, cm, 12/14/19 9:02:00 EDT, Height, 106.4, kg, 12/14/19... Start Date: 12/14/19 Status: Ordered topiramate 25 mg oral tablet 3 tablet = 75 mg, By Mouth, 2 times a day, dose increase, # 180 tablet, 5 Refills, Maintenance, 10/13/19 16:12:00 EDT, Tablet, [facility] - [place], 168, [...] Exam Date Time Procedure Performing Provider Status 12/14/19 12:04 PM C-Arm > 1 Hour Keyanna Aguilar; Kimo (Verified) Notes: (C-Arm > 1 Hour) Reason For Exam: ACDF RESULT: C-Arm > 1 Hour Spine Single View, C-Arm > 1 Hour INDICATION: ACDF; Special Instructions: TT 1 hr 45 min, FT 19 sec, DAP 23.37 mGy COMPARISONS: MRI from 01/13/2019 TECHNIQUE: Fluoroscopy support was provided. There was no radiologist in attendance. Fluoroscopy time: 19.5 seconds Technologist time: 1 hour 45 minutes Exposure: 23.37 mGy FINDINGS: 4 images were submitted. There has been prior ACDF at C4-C5 and C5-C6. ACDF is then performed at what appears to be C7-T1 Please refer to operative note for full details. IMPRESSION: See above. WSN: [id number] Ordering Physician: Todd Gallo Dictated By: Cordell Hudson MD Dictated Date/Time: 12/14/19 12:37 p Reviewed By: Cordell Hudson MD Signed By: Cordell Hudson MD Signed Date/Time: 12/14/19 12:37 pm Transcribed By: MARLEN Transcribed Date/Time: 12/14/19 12:35 pm * Exam Date Time Procedure Performing Provider Status 12/14/19 12:04 PM Spine Single View Keyanna Aguilar; Au th (Verified) Notes: (Spine Single View) Reason For Exam: ACDF RESULT: Spine Single View Spine Single View, C-Arm > 1 Hour INDICATION: ACDF; Special Instructions: TT 1 hr 45 min, FT 19 sec, DAP 23.37 mGy COMPARISONS: MRI from 01/13/2019 TECHNIQUE: Fluoroscopy support was provided. There was no radiologist in attendance. Fluoroscopy time: 19.5 seconds Technologist time: 1 hour 45 minutes Exposure: 23.37 mGy FINDINGS: 4 images were submitted. There has been prior ACDF at C4-C5 and C5-C6. ACDF is then performed at what appears to be C7-T1 Please refer to operative note for full details. IMPRESSION: See above. WSN: [id number] Ordering Physician: Todd Gallo Dictated By: Cordell Hudson MD Dictated Date/Time: 12/14/19 12:37 p Reviewed By: Cordell Hudson MD Signed By: Cordell Hudson MD Signed Date/Time: 12/14/19 12:37 pm Transcribed By: MARLEN Transcribed Date/Time: 12/14/19 12:35 pm Vital Signs Most recent to oldest [Reference Range]: 1 2 3 Height 167.64 cm (12/14/19 5:50 PM) 167.64 cm (12/14/19 9:02 AM) 167.64 cm (12/06/19 3:16 PM) Weight 106.4 kg (12/14/19 5:50 PM) 106.4 kg (12/14/19 9:02 AM) 104.55 kg (12/06/19 3:16 PM) Oxygen Saturation [94-100 %] 98 % (12/15/19 3:00 AM) 99 % (12/14/19 11:00 PM) 99 % (12/14/19 8:00 PM) Pulse Rate [55-90 bpm] 77 bpm (12/15/19 3:00 AM) 63 bpm (12/14/19 11:00 PM) 73 bpm (12/14/19 8:00 PM) Body Mass Index [18.5-24.99] 37.86 *>HHI* (12/14/19 5:50 PM) 37.86 *>HHI* (12/14/19 9:02 AM) 37.2 *>HHI* (12/06/19 3:16 PM) Blood Pressure [90-138/55-84 mm Hg] 125/58mm Hg (12/15/19 3:00 AM) 108/65mm Hg (12/15/19 12:00 AM) 96/53mm Hg (12/14/19 11:00 PM) Respiratory Rate [16-30 br/min] 18 br/min (12/15/19 6:32 AM) 18 br/min (12/15/19 5:32 AM) 18 br/min (12/15/19 4:49 AM) Temperature [96.8-100.4 DegF] 98.3 DegF (12/15/19 3:00 AM) 97.6 DegF (12/14/19 11:00 PM) 97.4 DegF (12/14/19 8:00 PM) Liters per Minute 6 L/min (12/14/19 12:00 PM) Mode of Delivery (Oxygen) Room air (12/15/19 3:00 AM) Room air (12/14/19 11:00 PM) Room air (12/14/19 8:00 PM) Blood pressure sites Arm, left (12/15/19 3:00 AM) Arm, right (12/15/19 12:00 AM) Arm, right (12/14/19 11:00 PM) Temperature Route Oral (12/15/19 3:00 AM) Oral (12/14/19 11:00 PM) Oral (12/14/19 8:00 PM) Dry Weight 106.4 kg (12/14/19 5:50 PM) 106.4 kg (12/14/19 9:02 AM) 104.55 kg (12/06/19 3:16 PM) Weight Obtained Via Standing scale (12/14/19 9:02 AM) Patient/family stated (12/06/19 3:16 PM) Dry Weight Obtained Via Standing scale (12/14/19 9:02 AM) Patient/family stated (12/06/19 3:16 PM) Social History Social History Type Response Smoking Status Former smoker; Tobac co user in household: No; Type: Cigarettes entered on: 04/24/15 Sex Female
--- OUTSIDE RECORDS SUMMARY | 2024-02-16 15:51 | XMS_ITS | Continuity of Care Document ---
Author Organization [facility] Address Unknown Care Team Providers Care Director Of Social Media Marketing Name Role Phone Cornell VALLECILLO, Miriam Sharpe Primary Care Physician Encounter [facility] [place] Date(s): 12/06/20 - 02/15/21 [facility] Attending Physician: Cristian Porter MD Allergies, Adverse Reactions, Alerts Substance Reaction [...] kit, 5 Refills, Maintenance, 12/31/20 19:35:00 EDT, [facility], 168, cm, 12/05/20 15:50:00 EDT, Height, 94.5, kg, 12/05/20 15:50:00 EDT, Dry Weight Start Date: 12/31/20 Status: Ordered albuterol 0.083% inhalation solution 3 mL = 2.5 mg, Inhalation, Every 6 hours, PRN for wheezing/shortness of breath, # 60 each, 5 Refills, Maintenance, 12/03/20 14:36:00 EDT, Solution, [facility] [place], [place], Partial fill upon patient request if [...] 11/10/20 12:54:00 EDT, [facility] [place], 168, cm, 10/30/20 10:27:00 EDT, Height, 98.5, kg, 08/03/20 15:21:00 EST, Dry Weight Start Date: 11/10/20 Status: Ordered hydrochlorothiazide 25 mg oral tablet 1, tablet, By Mouth, Daily, # 30 tablet, Refills 5, Route to Pharmacy Electronically, [facility], 168, cm, 01/24/21 15:18:00 EDT, Height, [...] 10/11/20 12:51:00 EDT, [facility] [place], 168, cm, 09/29/20 8:43:00 EDT, Height, 98.5, kg, 08/03/20 15:21:00 EST, Dry Weight Start Date: 10/11/20 Status: Ordered lisinopril 5 mg oral tablet 1, tablet, By Mouth, Daily, # 30 tablet, Refills 0, Tot. Refills 0, Maintenance, 01/12/21 9:00:00 EDT, Route to Pharmacy Electronically, [facility], 168, cm, 12/05/20 15:50:00 EDT, Height, [...] to Pharmacy Electronically, [facility] [place] [address] [place] [address],... Start Date: 12/05/20 Status: Ordered omeprazole 40 [...] tablet, 1 Refills, Maintenance, 01/12/21 18:13:00 EDT, [facility] [place] [address] [place] [address], 168, cm, 12/05/20 15:50:00 EDT, Height, 94.5, kg, 12/05/20 15:50:00 EDT,... Start Date: 01/12/21 Status: Ordered ProAir HFA 90 mcg/inh inhalation aerosol with adapter 2, puffs, Inhalation, Every 4 hours, PRN, directed., # 8.5 Gm, Refills 5, Tot. Refills 5, Maintenance, 01/24/21 15:40:00 EDT, Route to Pharmacy Electronically, [id number], [facility] [place] [address] [place] [address], 168... Start Date: 01/24/21 Status: Ordered Probiotic Formula By Mouth, Daily, 0 Refills, Maintenance, 07/21/20 11:13:00 EST, Partial fill upon patient request if the prescription is for a schedule II opioid drug. Start Date: 07/21/20 Status: Ordered rosuvastatin 20 mg oral capsule 1 capsule = 20 mg, By Mouth, Daily, # 30 capsule, 5 Refills, Maintenance, 10/11/20 12:53:00 EDT, Capsule, [facility] - [place], [place], Partial fill upon patient request if the prescription is for a schedule II opioid drug., 168, cm,... Start Date: 10/11/20 Status: Ordered topiramate 100 mg oral tablet 1 tablet, By Mouth, 2 times a day, # 60 tablet, 0 Refills, Maintenance, 01/10/21 12:37:00 EDT, [facility], 168, cm, 12/05/20 15:50:00 EDT, [...]
--- OUTSIDE RECORDS SUMMARY | 2024-02-16 15:51 | XMS_ITS | Continuity of Care Document ---
Author Organization [facility] Address [address] [place] [address] [address], [address] [place] [address]- Care Team Providers Care Manganese Wheeler Name Role Phone Cornell VALLECILLO, Miriam Sharpe Primary Care Physician Encounter [facility] [place] Date(s): 10/16/20 - 10/23/20 [facility] [address] [place] [address] Drive, [address] [place], [place] [address] Attending Physician: Cleo VALLECILLO, Todd Tolliver Allergies, [...] kit, 5 Refills, Maintenance, 07/10/20 9:56:00 EST, [facility], 167.6, cm, 06/06/20 14:32:00 EST, Height, 102.1, kg, 04/11/20 6:08:00 EST, Dry Weight Start Date: 07/10/20 Status: Ordered albuterol 0.083% inhalation solution 3 mL = 2.5 mg, Inhalation, Every 6 hours, PRN for wheezing/shortness of breath, # 60 each, 2 Refills, Maintenance, 08/30/20 14:43:00 EDT, Solution, [facility] [address] [place] [address], [place], Partial fill upon patient request if the prescription is... Start Date: 08/30/20 Status: Ordered allopurinol 300 mg oral tablet 300 mg, 1, tablet, By Mouth, Daily, # 30 tablet, Refills 0, Maintenance, 09/30/19 15:52:00 EDT Start Date: 09/30/19 Status: Ordered budesonide 1 mg/2 mL inhalation suspension 1 vials, Inhalation, Daily, # 60 mL, 0 Refills, Maintenance, 09/27/20 11:56:00 EDT, [facility], 168, cm, 08/03/20 15:21:00 EST, Height, 98.5, kg, 08/03/20 15:21:00 EST, Dry Weight Start Date: 09/27/20 Status: Ordered busPIRone 7.5 mg oral tablet 1 tablet, By Mouth, 2 times a day, # 60 tablet, 2 Refills, Maintenance, 09/13/20 15:06:00 EDT, [facility] [address] [place] [address], [place], 168, cm, 08/03/20 15:21:00 EST, Height, 98.5, kg, 08/03/20 15:21:00 EST, Dry Weight Start Date: 09/13/20 Status: Ordered hydrochlorothiazide 25 mg oral tablet 25 mg, 1, tablet, By Mouth, Daily, # 30 tablet, Refills 5, Tot. Refills 5, Maintenance, 08/07/20 8:58:00 EST, Route to Pharmacy Electronically, [facility], [place], 168, cm,08/03/20 15:21:00 EST, Height, 98.5, [...] tablet, 1 Refills, Maintenance, 10/11/20 12:51:00 EDT, [facility] #[place], 168, cm, 09/29/20 8:43:00 EDT, Height, 98.5, kg, 08/03/20 15:21:00 EST, Dry Weight Start Date: 10/11/20 Status: Ordered lisinopril 5 mg oral tablet 1, tablet, By Mouth, Daily, # 30 tablet, Refills 2, Tot. Refills 2, Maintenance, 10/11/20 12:52:00 EDT, Route to Pharmacy Electronically, [facility], 168, cm, 09/29/20 8:43:00 EDT, Height, [...] 10/13/20 21:48:00 EDT, [facility], [place], 168, cm, 09/29/20 8:43:00 EDT, Height, 98.5, kg, 08/03/20 15:21:00 EST, D... Start Date: 10/13/20 Status: Ordered ProAir HFA 90 mcg/inh inhalation aerosol with adapter 2, puffs, Inhalation, Every 4 hours, PRN, directed., # 8.5 Gm, Refills 5, Tot. Refills 5, Maintenance, 09/26/20 12:18:00 EDT, Route to Pharmacy Electronically, [id number], [facility] [address] [place] [address], 168... Start Date: 09/26/20 Status: Ordered Probiotic Formula By Mouth, Daily, 0 Refills, Maintenance, 07/21/20 11:13:00 EST, Partial fill upon patient request if the prescription is for a schedule II opioid drug. Start Date: 07/21/20 Status: Ordered rosuvastatin 20 mg oral capsule 1 capsule = 20 mg, By Mouth, Daily, # 30 capsule, 5 Refills, Maintenance, 10/11/20 12:53:00 EDT, Capsule, [facility] [address] [place] [address], Partial fill upon patient request if the prescription is for a schedule II opioid drug., 168, cm,... Start Date: 10/11/20 Status: Ordered Singulair 10 mg oral tablet 10 mg, 1, tablet, By Mouth, Daily, # 30 tablet, Refills 5, Tot. Refills 5, Maintenance, 06/07/20 13:22:00 EST, Route to Pharmacy Electronically, [facility] [address] [place] [address], Partialfill upon patient request if the prescription is fo... Start Date: 06/07/20 Status: Ordered Topamax 100 mg oral tablet 1 tablet = 100 mg, By Mouth, 2 times a day, # 60 tablet, 5 Refills, Maintenance, 07/27/20 11:36:00 EST, Tablet, [facility] [address] [place] [address], 167.6, cm, 07/21/20 11:11:00 EST, Height, 102.1, kg, 04/11/20 6:08:00 EST, Dry Weight Start Date: 07/27/20 Stop Date: 01/23/21 Status: Ordered Zofran 4 mg oral tablet 1 tablet = 4 mg, By Mouth, Every 8 hours, PRN as needed for nausea/vomiting, # 15 tablet, 0 Refills, Maintenance, 08/03/20 15:17:00 EST, Tablet, [facility] [address] [place] [address], Partialfill upon patient request if the prescription [...] recent to oldest [Reference Range]: 1 Height 168 cm (10/16/20 11:26 AM) Weight 97 kg (10/16/20 11:26 AM) Body Mass Index [18.5-24.99] 34.37 *>HHI* (10/16/20 11:26 AM) Social History Social History Type Response Smoking Status Former smoker; Tobac co user in household: No; Type: Cigarettes entered on: 04/24/15 Sex Female
--- OUTSIDE RECORDS SUMMARY | 2024-02-16 15:51 | XMS_ITS | Continuity of Care Document ---
Author Organization [facility] Address [address] [place] [address] Dri [address], [address] [place] [address]- Care Team Providers Care Recycler Name Role Phone Miriam Sarabia MD Primary Care Physician [facility]counter [facility] Date(s): 04/24/20 - 05/24/20 [facility] [address] [place] [address] Drive, [address] [place], [place] [address] Allergies, Adverse Reactions, Alerts Substance [...] 11:25:00 EST, Tablet, [facility], [place], 167.6, cm, 04/11/20 6:08:00 EST, Height, 102.1, [...] 11/04/19 9:33:00 EDT, Route to Pharmacy Electronically, [facility] [address] [place] [address], 168, cm, 11/03/19 14:03:00 EDT, Height, 116, [...] 04/20/20 16:15:00 EST, [facility], [place], 167.6, cm, 04/11/20 6:08:00 EST, Height, 102.1, kg, 04/11/20 6:08:00 EST, Dry We... Start Date: 04/20/20 Status: Ordered lisinopril 5 mg oral tablet 5 mg, 1, tablet, By Mouth, Daily, # 30 tablet, Refills 5, Tot. Refills 5, Maintenance, 02/07/20 13:48:00 EDT, Route to Pharmacy Electronically, [facility] [place] [address] [place] [address], [place], 167.64, cm, 02/07/20 13:13:00 EDT, Height, 106.4, kg, 12/13/... Start Date: 02/07/20 Status: Ordered Multi Vitamin+ 0 Refills, Maintenance, 07/21/19 15:30:00 EST Start Date: 07/21/19 Status: Ordered Neurontin 300 mg oral capsule 300 mg, 1, capsule, By Mouth, 3 times a day, # 30 tablet, Refills 0, Tot. Refills 0, Maintenance, 04/11/20 15:24:00 EST, Route to Pharmacy Electronically, [facility] [address] [place] [address], 167.6, cm, 04/11/20 6:08:00 EST, Height, 102.1, k... Start Date: 04/11/20 Status: Ordered ondansetron 8 mg oral tablet 1 tablet, By Mouth, 2 times a day, PRN NEEDED FOR NAUSEA/ VOMITING, # 30 tablet, 0 Refills, Maintenance, 05/19/20 8:29:00 EST, [facility], 167.6, cm, 05/09/20 16:10:00 EST, Height, 102.1, kg, 04/11/20 6:08:00 EST, Dry Weight Start Date: 05/19/20 Status: Ordered oxyCODONE 10 mg oral tablet 1 tablet = 10 mg, By Mouth, Every 8 hours, PRN as needed for pain, # 21 tablet, 0 Refills, Maintenance, 05/02/20 17:15:00 EST, Tablet, [facility] [address] [place] [address], [place], Partial fill uponpatient request, 167.6, cm, 04/11/20 6:08:00 EST, H... Start Date: 05/02/20 Stop Date: 05/09/20 Status: Ordered oxyCODONE 5 mg oral tablet 5 mg, 1, tablet, By Mouth, Every 8 hours, PRN, # 21 tablet, Refills 0, Tot. Refills 0, Maintenance,as needed for pain, 05/08/20 16:01:00 EST, Route to Pharmacy Electronically, [facility] [address] [place] [address], Partial fill upon patient r... Start Date: 05/08/20 Status: Ordered ProAir HFA 90 mcg/inh inhalation aerosol with adapter 2, puffs, Inhalation, Every 4 hours, PRN, directed., # 8.5 Gm, Refills 5, Tot. Refills 0, Maintenance, 02/07/20 11:10:00 EDT, Route to Pharmacy Electronically, [id number], [facility] [place], 167.64, cm, 01/19/20 11... Start Date: 02/07/20 Status: Ordered Pulmicort Flexhaler 180 mcg 1 puffs, Inhalation, 2 times a day, # 1 each, 0 Refills, Maintenance, 11/04/19 11:17:00 EDT, Powder, [facility] [address] [place] [address], 1 puffs Inhalation 2 times a day, 168, cm, 11/03/19 14:03:00 EDT, Height, 116, kg, 06/03/19 14:55:00 EST, Dry Weight Start Date: 11/04/19 Status: Ordered Topamax 100 mg oral tablet 1 tablet = 100 mg, By Mouth, 2 times a day, # 60 tablet, 5 Refills, Maintenance, 01/27/20 16:14:00 EDT, Tablet, [facility] [address] [place] [address], 167.64, cm, 01/19/20 11:34:00 EDT, Height, 106.4, kg, 12/14/19 17:54:00 EDT, Dry Weight Start Date: 01/27/20 Stop Date: 07/25/20 Status: Ordered Valium 5 mg oral tablet 5 mg, 1, tablet, By Mouth, 3 times a day, PRN, # 30 tablet, Refills 0, Tot. Refills 0, Maintenance,Spasm, 04/11/20 15:24:00 EST, Route to Pharmacy Electronically, [facility] [address] [place] [address], 167.6, cm, 04/11/20 6:08:00 EST, Height,... Start [...]
--- OUTSIDE RECORDS SUMMARY | 2024-02-16 15:51 | XMS_ITS | Continuity of Care Document ---
Author Organization [facility] Address [address] [place] [address] [address], [address] [place] [address]- Care Team Providers Care Community Relations Liaison Name Role Phone Miriam Sarabia MD Primary Care Physician [facility]counter [facility] Date(s): 04/19/20 - 05/19/20 [facility] [address] [place] [address] Drive, [address] [place], [place] [address] Allergies, Adverse Reactions, Alerts [...] kit, 5 Refills, Maintenance, 02/08/20 9:40:00 EDT, [facility], 167.64, cm, 02/07/20 [...] 11:25:00 EST, Tablet, [facility], [place], 167.6, cm, 04/11/20 6:08:00 EST, Height, 102.1, [...] 11/04/19 9:33:00 EDT, Route to Pharmacy Electronically, [facility] [address] [place] [address], 168, cm, 11/03/19 14:03:00 EDT, Height, 116, [...] 04/20/20 16:15:00 EST, [facility], [place], 167.6, cm, 04/11/20 6:08:00 EST, Height, 102.1, kg, 04/11/20 6:08:00 EST, Dry We... Start Date: 04/20/20 Status: Ordered lisinopril 5 mg oral tablet 5 mg, 1, tablet, By Mouth, Daily, # 30 tablet, Refills 5, Tot. Refills 5, Maintenance, 02/07/20 13:48:00 EDT, Route to Pharmacy Electronically, [facility] [address] [place] [address], [place], 167.64, cm, 02/07/20 13:13:00 EDT, Height, 106.4, kg, 12/13/... Start Date: 02/07/20 Status: Ordered Medrol Dosepak 4 mg oral tablet 1 pack/packet, By Mouth, Once, # 21 tablet, 0 Refills, Soft Stop, 05/11/20 9:00:00 EST, Tablet, [facility] [address] [place] [address], [place], Partial fill upon patient request if [...] 04/11/20 15:24:00 EST, Route to Pharmacy Electronically, [facility] [address] [place] [address], [place], 167.6, cm, 04/11/20 6:08:00 EST, Height, 102.1, k... Start Date: 04/11/20 Status: Ordered ondansetron 8 mg oral tablet 1 tablet, By Mouth, 2 times a day, PRN NEEDED FOR NAUSEA/ VOMITING, # 30 tablet, 0 Refills, Maintenance, 05/19/20 8:29:00 EST, [facility] [place], 167.6, cm, 05/09/20 16:10:00 EST, Height, 102.1, kg, 04/11/20 6:08:00 EST, Dry Weight Start Date: 05/19/20 Status: Ordered oxyCODONE 10 mg oral tablet 1 tablet = 10 mg, By Mouth, Every 8 hours, PRN as needed for pain, # 21 tablet, 0 Refills, Maintenance, 05/02/20 17:15:00 EST, Tablet, [facility] #[address] [place] [address], Partial fill uponpatient request, 167.6, cm, 04/11/20 6:08:00 EST, H... Start Date: 05/02/20 Stop Date: 05/09/20 Status: Ordered oxyCODONE 5 mg oral tablet 5 mg, 1, tablet, By Mouth, Every 8 hours, PRN, # 21 tablet, Refills 0, Tot. Refills 0, Maintenance,as needed for pain, 05/08/20 16:01:00 EST, Route to Pharmacy Electronically, [facility] [place] [address] [place] [address], Partial fill upon patient r... Start Date: 05/08/20 Status: Ordered Pepcid 20 mg oral tablet 1 tablet = 20 mg, By Mouth, Daily, # 7 tablet, 0 Refills, Maintenance, 05/11/20 9:00:00 EST, Tablet, [facility] #[address] [place] [address], Partial fill upon patient request if the prescription is for a schedule II opioid drug., 167.6, cm, 12... Start Date: 05/11/20 Stop Date: 05/18/20 Status: Ordered ProAir HFA 90 mcg/inh inhalation aerosol with adapter 2, puffs, Inhalation, Every 4 hours, PRN, directed., # 8.5 Gm, Refills 5, Tot. Refills 0, Maintenance, 02/07/20 11:10:00 EDT, Route to Pharmacy Electronically, [id number], [facility], 167.64, cm, 01/19/20 11... Start Date: 02/07/20 Status: Ordered Pulmicort Flexhaler 180 mcg 1 puffs, Inhalation, 2 times a day, # 1 each, 0 Refills, Maintenance, 11/04/19 11:17:00 EDT, Powder, [facility] [place], 1 puffs Inhalation 2 times a day, 168, cm, 11/03/19 14:03:00 EDT, Height, 116, kg, 06/03/19 14:55:00 EST, Dry Weight Start Date: 11/04/19 Status: Ordered Topamax 100 mg oral tablet 1 tablet = 100 mg, By Mouth, 2 times a day, # 60 tablet, 5 Refills, Maintenance, 01/27/20 16:14:00 EDT, Tablet, [facility], [place], 167.64, cm, 01/19/20 11:34:00 EDT, Height, 106.4, kg, 12/14/19 17:54:00 EDT, Dry Weight Start Date: 01/27/20 Stop Date: 07/25/20 Status: Ordered Valium 5 mg oral tablet 5 mg, 1, tablet, By Mouth, 3 times a day, PRN, # 30 tablet, Refills 0, Tot. Refills 0, Maintenance,Spasm, 04/11/20 15:24:00 EST, Route to Pharmacy Electronically, [facility] [place], [place], 167.6, cm, 04/11/20 6:08:00 EST, Height,... Start [...]
--- OUTSIDE RECORDS SUMMARY | 2024-02-16 15:51 | XMS_ITS | Continuity of Care Document ---
Author Organization [facility] Address [address] [place] [address], [address] [place] [address]- Care Team Providers Care Extracting Machine Operator Name Role Phone Miriam Sarabia MD Primary Care Physician Encounter [facility] Date(s): 05/10/20 - 06/09/[address], [address] [place], [place] [address] Attending Physician: Admtr, [place] Admitting Physician: [...] kit, 5 Refills, Maintenance, 02/08/20 9:40:00 EDT, [facility], 167.64, cm, 02/07/20 13:13:00 [...] 05/09/20 11:25:00 EST, Tablet, [facility] [address] [place] [address] [place], 167.6, cm, 04/11/20 6:08:00 EST, Height, 102.1, kg, 04/11/20 6:08:00 EST, Dry Weight Start Date: 05/09/20 Status: Ordered busPIRone 7.5 mg oral tablet 1 tablet, By Mouth, 2 times a day, # 60 tablet, 5 Refills, Maintenance, 03/17/20 14:27:00 EDT, [facility], 167.64, cm, 02/07/20 13:13:00 EDT, Height, 106.4, kg, 12/14/19 17:54:00 EDT, Dry Weight Start Date: 03/17/20 Status: Ordered hydrochlorothiazide 25 mg oral tablet 25 mg, 1, tablet, By Mouth, Daily, # 30 tablet, Refills 2, Tot. Refills 2, Maintenance, 11/04/19 9:33:00 EDT, Route to Pharmacy Electronically, [facility] [address] [place] [address], 168, cm, 11/03/19 14:03:00 EDT, Height, 116, [...] Maintenance, 04/20/20 16:15:00 EST, [facility] [address] [place] [address] [place], 167.6, cm, 04/11/20 6:08:00 EST, Height, 102.1, kg, 04/11/20 6:08:00 EST, Dry We... Start Date: 04/20/20 Status: Ordered lisinopril 5 mg oral tablet 5 mg, 1, tablet, By Mouth, Daily, # 30 tablet, Refills 5, Tot. Refills 5, Maintenance, 02/07/20 13:48:00 EDT, Route to Pharmacy Electronically, [facility] [address] [place] [address], 167.64, cm, 02/07/20 13:13:00 EDT, Height, 106.4, [...] tablet, 0 Refills, Maintenance, 05/19/20 8:29:00 EST, [facility], 167.6, cm, 05/09/20 16:10:00 EST, Height, 102.1, kg, 04/11/20 6:08:00 EST, Dry Weight Start Date: 05/19/20 Status: Ordered ProAir HFA 90 mcg/inh inhalation aerosol with adapter 2, puffs, Inhalation, Every 4 hours, PRN, directed., # 8.5 Gm, Refills 2, Tot. Refills 2, Maintenance, 06/07/20 13:23:00 EST, Route to Pharmacy Electronically, [id number], [facility] [address] [place] [address], 167... Start Date: 06/07/20 Status: Ordered Singulair 10 mg oral tablet 10 mg, 1, tablet, By Mouth, Daily, # 30 tablet, Refills 5, Tot. Refills 5, Maintenance, 06/07/20 13:22:00 EST, Route to Pharmacy Electronically, [facility], [place], Partialfill upon patient request if the prescription is fo... Start Date: 06/07/20 Status: Ordered Topamax 100 mg oral tablet 1 tablet = 100 mg, By Mouth, 2 times a day, # 60 tablet, 5 Refills, Maintenance, 01/27/20 16:14:00 EDT, Tablet, [facility] - [place], [place], 167.64, cm, 01/19/20 11:34:00 EDT, Height, 106.4, kg, 12/14/19 17:54:00 EDT, Dry Weight Start Date: 01/27/20 Stop Date: 07/25/20 Status: Ordered Problem List Condition Effective Dates [...]
--- OUTSIDE RECORDS SUMMARY | 2024-02-16 15:51 | XMS_ITS | Continuity of Care Document ---
Author Organization [facility] Address [address] [place] [address] [address], [address] [place] [address]- Care Team Providers Care Marine Diesel Technician Name Role Phone Cornell VALLECILLO, Miriam Sharpe Primary Care Physician Encounter [facility] Date(s): 11/16/19 - 11/23/19 [facility] [address] [place] [address] Drive, [address] [place] [address]- [facility] Attending Physician: Not on Staff, Attending MD Referring Physician: Cornell BRADSHAW , Ceci Gonzales Allergies, Adverse Reactions, Alerts Substance Reaction Severity [...] 10/27/19 11:07:00 EDT, Route to Pharmacy Electronically, [id number], [facility], 168, cm, 10/19/19 8:27:00 [...] recent to oldest [Reference Range]: 1 2 Height 168 cm (11/16/19 9:34 AM) 168 cm (11/15/19 11:23 AM) Weight 112 kg (11/16/19 9:34 AM) 112 kg (11/15/19 11:23 AM) Body Mass Index [18.5-24.99] 39.68 *>HHI* (11/16/19 9:34 AM) 39.68 *>HHI* (11/15/19 11:23 AM) Social History Social History Type Response Smoking Status Former smoker; Tobac co user in household: No; Type: Cigarettes entered on: 04/24/15 Sex
--- OUTSIDE RECORDS SUMMARY | 2024-02-16 15:51 | XMS_ITS | Continuity of Care Document ---
Author Organization [facility] Address [address] [place] [address] [address], [address] [place] [address]- Care Team Providers Care Release Of Information Clerk Name Role Phone Gilma VALLECILLO, Noreen Dennis Primary Care Physician [facility]counter [facility] Date(s): 05/28/22 - 06/27/[address], [address] [place], [place] [address] Allergies, Adverse Reactions, Alerts Substance Reaction Severity [...] kit, 5 Refills, Maintenance, 05/09/22 16:00:00 EST, [facility], 164, cm, 12/19/21 14:14:00 EDT, Height, 94.5, kg, 12/05/20 15:50:00 EDT, Dry Weight Start Date: 05/09/22 Status: Ordered Albuterol (Eqv-ProAir HFA) 90 mcg/inh inhalation aerosol 2 puffs, Inhalation, Every 4 hours, PRN NEEDED FOR WHEEZING, directed., # 8.5 Gm, 3 Refills, Maintenance, 04/05/22 12:47:00 EDT, [facility], 17, inhale 2 PUFFS BY MOUTH every [...] 05/24/22 15:17:00 EST, Route to Pharmacy Electronically, [facility], [place],Partial fill upon patient request if the prescripti... Start Date: 05/24/22 Status: Ordered famotidine 20 mg oral tablet 20 mg, 1, tablet, By Mouth, Daily at bedtime, # 30 tablet, Refills 0, Tot. Refills 0, Maintenance, 05/17/22 12:58:00 EST, Route to Pharmacy Electronically, [facility] - [place], [place], Partial fill upon patient request if the prescri... Start Date: 05/17/22 Status: Ordered hydrochlorothiazide 25 mg oral tablet 1, tablet, By Mouth, Daily, # 30 tablet, Refills 5, Maintenance, 05/06/22 13:25:00 EST, Route to Pharmacy Electronically, [facility], 164, cm, 12/19/21 14:14:00 EDT, Height, 94.5, kg, 12/05/20 15:50:00 EDT, Dry Weight Start Date: 05/06/22 Status: Ordered ibuprofen 600 mg oral tablet [...] Stop 01/01/23 13:33:00 EDT, 01/06/22 13:33:00 EDT, [facility] [place] [address] [place] [address], [place],164, cm, 12/19/21 14:14:00 EDT, Height, 94.5, [...] 12/19/21 14:50:00 EDT, Route to Pharmacy Electronically, [facility] [address] [place] [address], Partial fill upon patient request if the prescription... Start Date: 12/19/21 Stop Date: 06/17/22 Status: Ordered Mounjaro 2.5 mg/0.5 mL subcutaneous solution = 2.5 mg, Subcutaneous Infusion, Every 7 days, # 2 mL, 0 Refills, Maintenance, 05/28/22 14:50:00 EST, [facility], [place], Partial fill upon patient request if the prescription is for a schedule II opioid drug., 168, cm, 05/09... Start Date: 05/28/22 Stop Date: 06/25/22 Status: Ordered multivitamin Lipotropic with Multivitamins oral tablet 1 tablet, By Mouth, Daily, # 90 tablet, 0 Refills, Maintenance, 06/06/20 14:35:00 EST, Tablet, Partial fill upon patient request if the prescription is for a schedule II opioid drug. Start Date: 06/06/20 Status: Ordered nortriptyline 75 mg oral capsule 75 mg, 1, capsule, By Mouth, Daily at bedtime, # 90 capsule, Refills 0, Tot. Refills 0, Maintenance, 05/24/22 15:18:00 EST, Route to Pharmacy Electronically, [facility], [place], Partial fill upon patient request if the presc... Start Date: 05/24/22 Status: Ordered omeprazole 40 mg oral enteric coated capsule 1 capsule = 40 mg, By Mouth, Daily, 0 Refills, Maintenance, 09/29/20 8:47:00 EDT, Partial fill uponpatient request if the prescription is for a schedule II opioid drug. Start Date: 09/29/20 Status: Ordered ondansetron 8 mg oral tablet See Instructions, TAKE 1 TABLET BY MOUTH TWICE DAILY NEEDED FOR nausea/vomiting, # 30 tablet, 1 Refills, Maintenance, 05/21/22 11:44:00 EST, [facility], 168, cm, 05/17/22 11:19:00 EST, Height, 100, kg, 05/16/22 23:03:00 EST, Dry Weight Start Date: 05/21/22 Status: Ordered Probiotic Formula By Mouth, Daily, [...] Dry Weight Start Date: 05/05/22 Status: Ordered traMADol 50 mg oral tablet 1 tablet = 50 mg, By Mouth, Every 8 hours, PRN as needed for pain, # 84 tablet, 0 Refills, Maintenance, 06/19/22 13:39:00 EST, Tablet, [facility] - [place], [place], Partial fill uponpatient request if the prescription is for a schedu... Start Date: 06/19/22 Stop Date: 07/19/22 Status: Ordered Problem List Condition Confirmation Course [...] Confirmed Active Post concussive syndrome Confirmed Active Severe obesity Confirmed Active Tachycardia Confirmed Active Social History Social History Type Response Smoking Status Former smoker; Tobac co user in household: No; Type: Cigarettes entered on: 04/24/15 Sex Female Patient Care team information Care Team Personnel Name: Marco Licona RN Position: S RN Member Role: Primary Care Nurse Name: Noreen Dillard MD Position: S Primary Care Physician Member Role: PCP Address: Address: [address] [place] [address] [place] [address]- Name: Dylan Cox RN Position: S RN Member Role: Primary Care Nurse Care Team Related Persons Name: JEREMY GUTIÉRREZ Address: home [address] [place], [place] Name: KAYLEEN WILLAMS Address: home [address] [place] [address] Name: SHAMEKA GUTIERRES Address: home [address] [place] [address]
--- OUTSIDE RECORDS SUMMARY | 2024-02-16 15:51 | XMS_ITS | Continuity of Care Document ---
Author Organization [facility] Address [address] [facility], 3r d Floor, [address] [place] [id number]- Care Team Providers Care Operations Specialists Name Role Phone Cornell VALLECILLO, Miriam Sharpe Primary Care Physician Encounter [facility] Date(s): 09/05/20 - 01/03/21 [facility] [address], 3rd Floor, [address] [place] [address] Attending Physician: Tino Mtz MD Admitting Physician: Tino Mtz MD Allergies, Adverse Reactions, Alerts Substance Reaction [...] kit, 5 Refills, Maintenance, 12/31/20 19:35:00 EDT, [facility], 168, cm, 12/05/20 15:50:00 EDT, Height, 94.5, kg, 12/05/20 15:50:00 EDT, Dry Weight Start Date: 12/31/20 Status: Ordered albuterol 0.083% inhalation solution 3 mL = 2.5 mg, Inhalation, Every 6 hours, PRN for wheezing/shortness of breath, # 60 each, 5 Refills, Maintenance, 12/03/20 14:36:00 EDT, Solution, [facility] [address] [place] [address], [place], Partial fill upon patient request if the prescription is... Start Date: 12/03/20 Status: Ordered allopurinol 300 mg oral tablet 300 mg, 1, tablet, By Mouth, Daily, # 30 tablet, Refills 0, Maintenance, 09/30/19 15:52:00 EDT Start Date: 09/30/19 Status: Ordered budesonide 1 mg/2 mL inhalation suspension 1 vials, Inhalation, Daily, # 60 mL, 5 Refills, Maintenance, 11/10/20 12:54:00 EDT, [facility] [address] [place] [address], [place], 168, cm, 10/30/20 10:27:00 EDT, Height, 98.5, kg, 08/03/20 15:21:00 EST, Dry Weight Start Date: 11/10/20 Status: Ordered busPIRone 7.5 mg oral tablet 1 tablet, By Mouth, 2 times a day, # 60 tablet, 2 Refills, Maintenance, 12/13/20 15:52:00 EDT, [facility], 168, cm, 12/05/20 15:50:00 EDT, Height, 94.5, kg, 12/05/20 15:50:00 EDT, Dry Weight Start Date: 12/13/20 Status: Ordered hydrochlorothiazide 25 mg oral tablet 25 mg, 1, tablet, By Mouth, Daily, # 30 tablet, Refills 5, Tot. Refills 5, Maintenance, 08/07/20 8:58:00 EST, Route to Pharmacy Electronically, [facility] [address] [place] [address], [place], 168, cm,08/03/20 15:21:00 EST, Height, 98.5, [...] Maintenance, 10/11/20 12:51:00 EDT, [facility] [address] [place] [address], [place], 168, cm, 09/29/20 8:43:00 EDT, Height, 98.5, kg, 08/03/20 15:21:00 EST, Dry Weight Start Date: 10/11/20 Status: Ordered lisinopril 5 mg oral tablet 1, tablet, By Mouth, Daily, # 30 tablet, Refills 2, Tot. Refills 2, Maintenance, 10/11/20 12:52:00 EDT, Route to Pharmacy Electronically, [facility] [address] [place] [address], [place], 168, cm, 09/29/20 8:43:00 EDT, Height, [...] Route to Pharmacy Electronically, [facility] [address] [place] [address],... Start Date: 12/05/20 Status: Ordered omeprazole 40 [...] tablet, 0 Refills, Maintenance, 10/13/20 21:48:00 EDT, [facility] [address] [place] [address], 168, cm, 09/29/20 8:43:00 EDT, Height, 98.5, kg, 08/03/20 15:21:00 EST, D... Start Date: 10/13/20 Status: Ordered ProAir HFA 90 mcg/inh inhalation aerosol with adapter 2, puffs, Inhalation, Every 4 hours, PRN, directed., # 8.5 Gm, Refills 5, Tot. Refills 5, Maintenance, 09/26/20 12:18:00 EDT, Route to Pharmacy Electronically, [id number], [facility] [address] [place] [address], 168... Start Date: 09/26/20 Status: Ordered Probiotic Formula By Mouth, Daily, 0 Refills, Maintenance, 07/21/20 11:13:00 EST, Partial fill upon patient request if the prescription is for a schedule II opioid drug. Start Date: 07/21/20 Status: Ordered rosuvastatin 20 mg oral capsule 1 capsule = 20 mg, By Mouth, Daily, # 30 capsule, 5 Refills, Maintenance, 10/11/20 12:53:00 EDT, Capsule, [facility] [address] [place] [address], Partial fill upon patient request if the prescription is for a schedule II opioid drug., 168, cm,... Start Date: 10/11/20 Status: Ordered Singulair 10 mg oral tablet 10 mg, 1, tablet, By Mouth, Daily, # 30 tablet, Refills 5, Tot. Refills 5, Maintenance, 11/10/20 12:55:00 EDT, Route to Pharmacy Electronically, [facility] [address] [place] [address], Partialfill upon patient request if the prescription is fo... Start Date: 11/10/20 Status: Ordered Topamax 100 mg oral tablet 1 tablet = 100 mg, By Mouth, 2 times a day, # 60 tablet, 5 Refills, Maintenance, 07/27/20 11:36:00 EST, Tablet, [facility] [address] [place] [address], 167.6, cm, 07/21/20 11:11:00 EST, Height, 102.1, kg, 04/11/20 6:08:00 EST, Dry Weight Start Date: 07/27/20 Stop Date: 01/23/21 Status: Ordered Zofran 4 mg oral tablet 1 tablet = 4 mg, By Mouth, Every 8 hours, PRN as needed for nausea/vomiting, # 15 tablet, 0 Refills, Maintenance, 08/03/20 15:17:00 EST, Tablet, [facility] - [place], [place], Partialfill upon patient request if the [...]
--- OUTSIDE RECORDS SUMMARY | 2024-02-16 15:51 | XMS_ITS | Continuity of Care Document ---
Author Organization [facility] Address [address] [place] [address] [address], [address] [place] [address]- Care Team Providers Care Fiber Picker Name Role Phone Cornell VALLECILLO, Miriam Sharpe Primary Care Physician Encounter [facility] Date(s): 03/06/20 - 04/05/20 [facility] [address] [place] [address] Drive, [address] [place] [address]- [facility] Allergies, Adverse Reactions, Alerts Substance [...] kit, 5 Refills, Maintenance, 02/08/20 9:40:00 EDT, [facility], 167.64, cm, 02/07/20 13:13:00 [...] 2 Refills, Maintenance, 02/10/20 8:57:00 EDT, Tablet, [facility] [address] [place], 167.64, cm, 02/07/20 13:13:00 EDT, Height, [...] [facility] [address] [place] [address], 168, cm, 11/03/19 14:03:00 EDT, Height, 116, [...] Maintenance, 01/17/20 8:19:00 EDT, [facility] [address] [place], 167.64, cm, 12/14/19 17:50:00EDT, Height, 106.4, kg, 12/14/19 17:54:00 EDT, Dry... Start Date: 01/17/20 Status: Ordered lisinopril 5 mg oral tablet 5 mg, 1, tablet, By Mouth, Daily, # 30 tablet, Refills 5, Tot. Refills 5, Maintenance, 02/07/20 13:48:00 EDT, Route to Pharmacy Electronically, [facility] [address] [place], [place], 167.64, cm, 02/07/20 13:13:00 EDT, Height, 106.4, kg, ... Start Date: 02/07/20 Status: Ordered Multi Vitamin+ 0 Refills, Maintenance, 07/21/19 15:30:00 EST Start Date: 07/21/19 Status: Ordered ProAir HFA 90 mcg/inh inhalation aerosol with adapter 2, puffs, Inhalation, Every 4 hours, PRN, directed., # 8.5 Gm, Refills 5, Tot. Refills 0, Maintenance, 02/07/20 11:10:00 EDT, Route to Pharmacy Electronically, [id number], [facility] [place], 167.64, cm, 01/19/20 11... Start Date: 02/07/20 Status: Ordered Pulmicort Flexhaler 180 mcg 1 puffs, Inhalation, 2 times a day, # 1 each, 0 Refills, Maintenance, 11/04/19 11:17:00 EDT, Powder, [facility], 1 puffs Inhalation 2 times a day, 168, cm, 11/03/19 14:03:00 EDT, Height, 116, kg, 06/03/19 14:55:00 EST, Dry Weight Start Date: 11/04/19 Status: Ordered Topamax 100 mg oral tablet 1 tablet = 100 mg, By Mouth, 2 times a day, # 60 tablet, 5 Refills, Maintenance, 01/27/20 16:14:00 EDT, Tablet, [facility] [address] [place] [address], 167.64, cm, 01/19/20 11:34:00 EDT, Height, 106.4, kg, 12/14/19 17:54:00 EDT, Dry Weight Start Date: 01/27/20 Stop Date: 07/25/20 Status: Ordered Zofran 8 mg oral tablet 1 tablet = 8 mg, By Mouth, 2 times a day, PRN as needed for nausea/vomiting, # 30 tablet, 0 Refills, Maintenance, 04/05/20 9:49:00 EDT, Tablet, [facility] - [place], [place], 167.64, cm, 04/05/20 9:29:00 EDT, Height, 106.4, [...]
--- OUTSIDE RECORDS SUMMARY | 2024-02-16 15:51 | XMS_ITS | Continuity of Care Document ---
Author Organization [facility] Address [address] [place] [address]- Care Team Providers Care Rn Emergency Room Name Role Phone Cornell VALLECILLO, Miriam Sharpe Primary Care Physician [place] [facility] Date(s): 12/05/20 - 12/12/20 [facility] [address] [place] [address]- Encounter Diagnosis Neuropathic pain of hand(Discharge Diagnosis) - 12/05/20 Attending Physician: Cristian Porter MD Referring Physician: Todd Gallo MD Allergies, [...] kit, 5 Refills, Maintenance, 07/10/20 9:56:00 EST, [facility], 167.6, cm, 06/06/20 14:32:00 EST, Height, 102.1, kg, 04/11/20 6:08:00 EST, Dry Weight Start Date: 07/10/20 Status: Ordered albuterol 0.083% inhalation solution 3 mL = 2.5 mg, Inhalation, Every 6 hours, PRN for wheezing/shortness of breath, # 60 each, 5 Refills, Maintenance, 12/03/20 14:36:00 EDT, Solution, [facility] [address] [place] [address], [place], Partial fill upon patient request if the prescription is... Start Date: 12/03/20 Status: Ordered allopurinol 300 mg oral tablet 300 mg, 1, tablet, By Mouth, Daily, # 30 tablet, Refills 0, Maintenance, 09/30/19 15:52:00 EDT Start Date: 09/30/19 Status: Ordered budesonide 1 mg/2 mL inhalation suspension 1 vials, Inhalation, Daily, # 60 mL, 5 Refills, Maintenance, 11/10/20 12:54:00 EDT, [facility] [address] [place] [address], [place], 168, cm, 10/30/20 10:27:00 EDT, Height, 98.5, kg, 08/03/20 15:21:00 EST, Dry Weight Start Date: 11/10/20 Status: Ordered busPIRone 7.5 mg oral tablet 1 tablet, By Mouth, 2 times a day, # 60 tablet, 2 Refills, Maintenance, 09/13/20 15:06:00 EDT, [facility] [address] [place] [address], [place], 168, cm, 08/03/20 15:21:00 EST, Height, 98.5, kg, 08/03/20 15:21:00 EST, Dry Weight Start Date: 09/13/20 Status: Ordered hydrochlorothiazide 25 mg oral tablet 25 mg, 1, tablet, By Mouth, Daily, # 30 tablet, Refills 5, Tot. Refills 5, Maintenance, 08/07/20 8:58:00 EST, Route to Pharmacy Electronically, [facility] [address] [place] [address], [place], 168, cm,08/03/20 15:21:00 EST, Height, 98.5, kg, [...] [facility] [address] [place] [address], [place], 168, cm, 09/29/20 8:43:00 EDT, Height, 98.5, kg, 08/03/20 15:21:00 EST, Dry Weight Start Date: 10/11/20 Status: Ordered lisinopril 5 mg oral tablet 1, tablet, By Mouth, Daily, # 30 tablet, Refills 2, Tot. Refills 2, Maintenance, 10/11/20 12:52:00 EDT, Route to Pharmacy Electronically, [facility] [address] [place] [address], [place], 168, cm, 09/29/20 8:43:00 EDT, Height, 98.5, [...] Replace Required Details, Route to Pharmacy Electronically, [facility] [address] [place] [address],... Start Date: 12/05/20 Status: Ordered omeprazole 40 [...] Maintenance, 10/13/20 21:48:00 EDT, [facility] [address] [place] [address], 168, cm, 09/29/20 8:43:00 EDT, Height, 98.5, kg, 08/03/20 15:21:00 EST, D... Start Date: 10/13/20 Status: Ordered ProAir HFA 90 mcg/inh inhalation aerosol with adapter 2, puffs, Inhalation, Every 4 hours, PRN, directed., # 8.5 Gm, Refills 5, Tot. Refills 5, Maintenance, 09/26/20 12:18:00 EDT, Route to Pharmacy Electronically, [id number], [facility] [address] [place] [address], 168... Start Date: 09/26/20 Status: Ordered Probiotic [...] [facility] [address] [place] [address], Partial fill upon patient request if the prescription is for a schedule II opioid drug., 168, cm,... Start Date: 10/11/20 Status: Ordered Singulair 10 mg oral tablet 10 mg, 1, tablet, By Mouth, Daily, # 30 tablet, Refills 5, Tot. Refills 5, Maintenance, 11/10/20 12:55:00 EDT, Route to Pharmacy Electronically, [facility] [address] [place] [address], Partialfill upon patient request if the prescription is fo... Start Date: 11/10/20 Status: Ordered Topamax 100 mg oral tablet 1 tablet = 100 mg, By Mouth, 2 times a day, # 60 tablet, 5 Refills, Maintenance, 07/27/20 11:36:00 EST, Tablet, [facility] [address] [place] [address], 167.6, cm, 07/21/20 11:11:00 EST, Height, 102.1, kg, 04/11/20 6:08:00 EST, Dry Weight Start Date: 07/27/20 Stop Date: 01/23/21 Status: Ordered Zofran 4 mg oral tablet 1 tablet = 4 mg, By Mouth, Every 8 hours, PRN as needed for nausea/vomiting, # 15 tablet, 0 Refills, Maintenance, 08/03/20 15:17:00 EST, Tablet, [facility] - [place], [place], Partialfill upon patient request if the [...] neuralgia(Confirmed) Active Rheumatoid arthritis(Confirmed) Active Tachycardia(Confirmed) Active Diagnosis Diagnosis Type Effective Dates Health Status Clinical Service Informant Neuropathic pain of hand Discharge Diagnosis 12/05/20 Vital Signs Most recent to oldest [Reference Range]: 1 Height 168 cm (12/05/20 3:50 PM) Weight 94.5 kg (12/05/20 3:50 PM) Oxygen Saturation [94-100 %] 100 % (12/05/20 3:50 PM) Pulse Rate [55-90 bpm] 86 bpm (12/05/20 3:50 PM) Body Mass Index [18.5-24.99] 33.48 *>HHI* (12/05/20 3:50 PM) Blood Pressure [90-138/55-84 mm Hg] 111/ 73mm Hg (12/05/20 3:50 PM) Temperature [96.8-100.4 DegF] 97.8 DegF (12/05/20 3:50 PM) Mode of Delivery (Oxygen) Room air (12/05/20 3:50 PM) Blood pressure sites Arm, left (12/05/20 3:50 PM) Temperature Route Temporal (12/05/20 3:50 PM) Dry Weight 94.5 kg (12/05/20 3:50 PM) Social History Social History Type Response Smoking Status Former smoker; Tobac co user in household: No; Type: Cigarettes entered on: 04/24/15 Sex Female
--- OUTSIDE RECORDS SUMMARY | 2024-02-16 15:51 | XMS_ITS | Continuity of Care Document ---
Author Organization [facility] Address [address] [place] [address]- Care Team Providers Care Check And Transfer Beader Name Role Phone Gilma VALLECILLO, Noreen Dennis Primary Care Physician [phone] Encounter [facility] Date(s): 10/29/22 - 11/28/22 [facility] [address] [place] [address]- Allergies, Adverse Reactions, Alerts Substance Reaction Severity [...] 05/14/21 R ecorded SARS-CoV-2 (COVID-19) mRNA-1273 vaccine 4/26/21 R ecorded SARS-CoV-2 (COVID-19) mRNA-1273 vaccine 09/04/20 R ecorded Influenza Virus Vaccine (oldterm) 02/07/20 Recorde d pneumococcal 13-valent vaccine 03/11/18 Recorded pneumococcal 23-valent vaccine 05/05/09 Given influ virus vac, H1N1, inactive(oldterm) 04/20/09 Recorded Medications Aimovig SureClick Autoinjector-aooe 140 mg/mL subcutaneous solution = 140 mg, Subcutaneous Infusion, Every 28 days, # 1 kit, 5 Refills, Maintenance, 10/28/22 16:56:00 EDT, [facility], 168, cm, 10/08/22 12:10:00 EDT, Height, 100, kg, 05/16/22 23:03:00EST, Dry Weight Start Date: 10/28/22 Status: Ordered Albuterol (Eqv-ProAir HFA) 90 mcg/inh inhalation aerosol 2 puffs, Inhalation, Every 4 hours, PRN NEEDED FOR WHEEZING, directed., # 8.5 Gm, 5 Refills, Maintenance, 11/17/22 11:54:00 EDT, [facility] [place], 16, inhale 2 PUFFS BY MOUTH every 4 hours NEEDED FOR WHEEZING directed, 168, cm, 05... Start Date: 11/17/22 Status: Ordered allopurinol 300 mg oral tablet 300 mg, 1, tablet, By Mouth, Daily, # 30 tablet, Refills 0, Maintenance, 09/30/19 15:52:00 EDT Start Date: 09/30/19 Status: Ordered baclofen 10 mg oral tablet 10 mg, 1, tablet, By Mouth, 3 times a day, # 90 tablet, Refills 5, Tot. Refills 5, Maintenance, 05/24/22 15:17:00 EST, Route to Pharmacy Electronically, [facility] [facility], [place],Partial fill upon patient request if the prescripti... Start Date: 05/24/22 Status: Ordered famotidine 20 mg oral tablet 20 mg, 1, tablet, By Mouth, Daily at bedtime, # 30 tablet, Refills 0, Tot. Refills 0, Maintenance, 05/17/22 12:58:00 EST, Route to Pharmacy Electronically, [facility] - [place], [place], Partial fill upon patient request if the prescri... Start Date: 05/17/22 Status: Ordered hydrochlorothiazide 25 mg oral tablet See Instructions, TAKE 1 TABLET BY MOUTH DAILY, # 30 tablet, Refills 5, Maintenance, 10/27/22 17:57:00 EDT, Instructions Replace Required Details, Route to Pharmacy Electronically, [facility], 168, cm, 10/08/22 12:10:00 EDT, Height, 100... Start Date: 10/27/22 Status: Ordered ibuprofen 600 [...] Stop 01/01/23 13:33:00 EDT, 01/06/22 13:33:00 EDT, [facility] - [place], [place],[address], cm, 12/19/21 14:14:00 EDT, Height, 94.5, kg, [...] Maintenance, 07/02/22 19:48:00 EST,Route to Pharmacy Electronically, [facility], 168, cm, 06/19/22 11:00:00 EST, Height, 100, kg, 05/16/22 23:03:00 EST, Dry Weight Start Date: 07/02/22 Status: Ordered Mounjaro 5 mg/0.5 mL subcutaneous solution = 7.5 mg, Subcutaneous Infusion, Every 7 days, # 2 mL, 0 Refills, Maintenance, 10/21/22 16:02:00 EDT, [facility] [facility], [place], Partial fill upon patient request if the prescription is for a schedule II opioid drug., 168, cm, 0... Start Date: 10/21/22 Stop Date: 11/18/22 Status: Ordered Mounjaro 7.5 mg/0.5 mL subcutaneous solution See Instructions, inject 7.5 mg Subcutaneous Infusion Every 7 days,x28 days, # 2 mL, 0 Refills, Maintenance, 11/17/22 21:26:00 EDT, [facility] [place], 168, cm, 10/08/22 12:10:00 EDT, Height, 100, kg, 05/16/22 23:03:00 EST, Dry Weight Start Date: 11/17/22 Status: Ordered multivitamin Lipotropic with Multivitamins oral [...] Replace Required Details, [facility] 168, cm, 06/19/22 11:00:00 EST... [...] tablet, 1 Refills, Maintenance, 10/21/22 16:03:00 EDT, [facility], [place], 168, cm, 10/08/22 12:10:00 EDT, Height, 100, kg, 05/16/22 23:03:00 ESTDr... Start Date: 10/21/22 Stop Date: 12/20/22 Status: Ordered oxyCODONE 5 mg oral tablet 5 mg, 1, tablet, By Mouth, Every 6 hours, PRN, # 28 tablet, Refills 0, Tot. Refills 0, Maintenance,as needed for pain, 11/21/22 16:25:00 EDT, Route to Pharmacy Electronically, [facility] [address] [place] [address], [place], Partial fill upon patient r... Start Date: 11/21/22 Stop Date: 11/28/22 Status: Ordered Physical Therapy Physical Therapy, See [...] tablet, 5 Refills, Maintenance, 10/27/22 17:58:00 EDT, [facility], 168, cm, 10/08/22 12:10:00 EDT, Height, 100, kg, 05/16/22 23:03:00 EST, Dry Weight Start Date: 10/27/22 Status: Ordered topiramate 100 mg oral tablet See Instructions, TAKE 1 TABLET BY MOUTH TWICE DAILY, # 60 tablet, 5 Refills, Maintenance, 10/27/2316:58:00 EDT, [facility], 168, cm, 10/08/22 12:10:00 EDT, Height, 100, kg, 05/16/22 23:03:00 EST, Dry Weight Start Date: 10/27/22 Status: Ordered traMADol 50 mg oral tablet 1 tablet = 50 mg, By Mouth, Every 6 hours, PRN Pain , Moderate, # 112 tablet, 0 Refills, Maintenance, 11/26/22 6:08:00 EDT, Tablet, [facility], [place], Partial fill upon patient request if the prescription is for a schedule... Start Date: 11/26/22 Stop Date: 12/24/22 Status: [...] Confirmed Active Radiculopathy Confirmed Active Obese class I Confirmed Active Occipital neuralgia Confirmed Active Post [...] Care Nurse Name: Noreen Dillard MD Position: [facility] Physician - Primary Care Member Role: PCP Address: Address: [address] [place] [address]- Name: Dylan Cox RN Position: S RN Member Role: Primary Care Nurse Care Team Related Persons Name: JEREMY GUTIÉRREZ Address: [address] [place] [address] Name: KAYLEEN WILLAMS Address: home [address] [place] [address] Name: SHAMEKA GUTIERRES Address: home [address] [place] [address]
== END 2024-02-16 17:05 ==
LOC: HO.HMGFM 15:48
PROVIDERS: PCP Family Medicine; Visit Provider Internal Medicine
DX: G43.119 Migraine with aura, intractable, without status migrainosus (principal); G89.4 Chronic pain syndrome
CPT/HCPCS: 99443

== ENCOUNTER 2024-03-14 16:12 | Emergency (ER) | payer BC, SELFPAY ==
--- NOTE | ~2024-03-14 | XR_ITS ---
EXAMINATION: XR CHEST CLINICAL INFORMATION: Cough. COMPARISON: None available. TECHNIQUE: 2 views of the chest were obtained. FINDINGS: No significant abnormality is noted involving the heart, lungs, mediastinum, or soft tissues. Degenerative changes of the spine. Suspect old, healed left rib fractures. Status post cholecystectomy. Question partially imaged lower cervical hardware, incompletely visualized. XR/XR chest 2V IMPRESSION: No acute finding. Electronically signed by: Matt Alcaraz MD 03/14/2024 04:34 PM EDT
[2024-03-14 16:14] VITALS: BP 136/67; PULSE 90; RESP 18; TEMP 36.6; O2SAT 98; BMI 23.4
--- NOTE | 2024-03-14 16:15 | ED_ITS ---
HPI - General Adult General Chief complaint: Upper Respiratory Symptoms Stated complaint: chest x-ray Time Seen by Provider: 03/14/24 16:16 Source: patient Mode of arrival: ambulatory Limitations: no limitations History of Present Illness ED Provider: Catrachita Rose PA-C HPI narrative: Patient is a 48 year old assigned female at with a history of HTN, asthma, HLD, and migraines presenting to the emergency department today for a chest x- ray. Patient states that she has had a cough and was recently diagnosed with pneumonia. Patient states that her doctor sent her here for a chest x-ray to see if she has recurrent pneumonia. Patient denies any dizziness, lightheadedness, abdominal pain, nausea, vomiting, fever, chills, blurry vision, double vision, loss of vision, chest pain, difficulty breathing, shortness of breath, back pain, night sweats, pain with urination, increased urinary frequency, increased urinary urgency, blood in her urine or stool, syncope or a near syncopal episode, recent trauma or falls, bowel incontinence, bladder incontinence, or any other complaints at this time. Note: I explained to the patient that although her provider sent her here for an outpatient x-ray today (Friday03/14/2024), [facility] does not perform outpatient radiology orders on Sundays. The patient verbalized understanding that she would have to be registered as an Emergency Department patient in order for the chest x-ray to be performed today. The patient verbalized understanding that this encounter would be billed as an Emergency Department visit and not as an outpatient visit. Relieving factors: none Exacerbating factors: none Associated symptoms: cough Related Data Home Medications ?Medication ?Instructions ?Recorded ?Confirmed erenumab-aooe 140 mg/mL mg subcut 04/19/21 10/30/23 subcutaneous auto-injector (Aimovig Autoinjector) ondansetron HCl 8 mg tablet 8 mg PO BID PRN nausea/vomiting 04/19/21 10/30/23 nortriptyline 75 mg capsule 75 mg PO BEDTIME 10/30/23 10/30/23 amoxicillin 875 mg-potassium 1 tab PO BID 02/16/24 clavulanate 125 mg tablet doxycycline hyclate 100 mg capsule 100 mg PO BID 02/16/24 Previous Rx's ?Medication ?Instructions ?Recorded tirzepatide 10 mg/0.5 mL 10 mg (0.5 mL) subcut QWEEK #6 mL 10/30/23 subcutaneous pen injector (Mounjaro) topiramate 100 mg tablet 100 mg PO BID 30 days #60 tabs 11/04/23 baclofen 10 mg tablet 10 mg PO TID PRN muscle spasm #90 11/24/23 tabs montelukast 10 mg tablet 10 mg PO QPM #90 tabs 01/16/24 Aimovig Autoinjector 140 mg/mL 140 mg subcut .every 30 days 90 02/16/24 subcutaneous auto-injector days #3 mL (erenumab-aooe) albuterol sulfate 90 mcg/actuation 2 puff PO Q4H PRN for wheezing 02/16/24 aerosol inhaler #8.5 grams lzrpcywypn-irpxgbixhqjuw-vjczswxc 1 cap PO Q6H PRN pain 28 days #112 02/16/24 50 mg-325 mg-40 mg capsule caps oxycodone 5 mg tablet 5 mg PO Q6H PRN pain 28 days #112 02/24/24 tabs Mounjaro 12.5 mg/0.5 mL 12.5 mg (0.5 mL) subcut QWEEK #2 mL 02/26/24 subcutaneous pen injector (tirzepatide) rosuvastatin 10 mg tablet 10 mg PO DAILY #90 tabs 03/03/24 tramadol 50 mg tablet 50 mg PO Q6H PRN pain 28 days #112 03/10/24 tabs Allergies Allergy/AdvReac Type Severity Reaction Status Date / Time codeine Allergy Severe rash Verified 03/14/24 16:15 morphine Allergy Severe Rash Verified 03/14/24 16:15 Sulfa (Sulfonamide Allergy Severe rash Verified 03/14/24 16:15 Antibiotics) coconut Allergy Hives Verified 03/14/24 16:15 meperidine [From Demerol] AdvReac Severe migraine Verified 03/14/24 16:15 Review of Systems Constitutional: Constitutional: Reports no additional constitutional complaints, Denies chills, Denies fever(s) and Denies night sweats Eyes: Eyes: Reports no additional eye complaints, Denies blurry vision, Denies change in vision, Denies diplopia, Denies eye discharge, Denies loss of vision and Denies eye pain ENT: Denies dizziness Cardiovascular: Cardiovascular: Reports no additional cardiovascular complaints, Denies chest pain, Denies lightheadedness, Denies Loss of Consciousness and Denies dyspnea Respiratory: Respiratory: Reports no additional respiratory complaints, Reports cough and Denies dyspnea Gastrointestinal: Gastrointestinal: Reports no additional gastrointestinal complaints, Denies abdominal pain, Denies melena, Denies hematochezia, Denies change in bowel habits and Denies change in stool character Genitourinary: Genitourinary: Denies hematuria, Denies urinary frequency, Denies dysuria, Denies urinary incontinence, Denies urinary hesitancy and Denies urinary urgency Musculoskeletal: Musculoskeletal: Reports no additional musculoskeletal complaints, Denies numbness and Denies tingling Neurologic: Denies dizziness, Denies loss of vision, Denies numbness and Denies tingling Psychiatric: Psychiatric: Reports no additional psychiatric complaints Endocrine: Endocrine: Reports no additional endocrine complaints Hematologic/Lymphatic: Hematologic/Lymphatic: Reports no additional hematologic/lymphatic complaints Allergic/Immunologic: Allergic/Immunologic: Reports no additional allergic/immunologic complaints PMFSH Past Medical History Attestation statement: The following information was validated with the patient. 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 [employer] Current occupational exposures/hazards: No Cognitive needs: No Hearing needs: No Vision needs: Yes (glasses) Physical Exam ED Vital Signs: Vital Signs - 24 hr 03/14/24 16:14 03/14/24 16:39 Temperature 98 F 98 F Pulse Rate 90 90 Respiratory Rate 18 18 Blood Pressure 136/67 136/67 Pulse Oximetry 98 98 Oxygen Delivery Method Room Air Room Air BMI result Body Mass Index 23.4 Const General: cooperative, no acute distress, alert and awake Nutritional Appearance: well nourished Orientation/consciousness: patient oriented x3 Limitations: no limitations HENMT Head: Yes normal to inspection and Yes atraumatic Ears: hearing grossly normal bilaterally and external ears normal General nose exam: Normal external nose present, no nasal discharge noted and no epistaxis Face and sinus: Yes normal facial exam, No abrasion and No laceration Mouth: Normal oral and palatal mucosa present, no drooling and no muffled voice Eyes General: appearance normal, both eyes and all related structures Periorbital: periorbital findings normal Eyelids: Yes eyelids normal Conjunctivae: conjunctivae normal Pupils: Equal, round and reactive pupils present EOM: EOMs intact bilaterally Neck Neck: Yes normal visual inspection, Yes full ROM and Yes no lymphadenopathy Chest Chest palpation & inspection: normal inspection of the chest Resp Effort & Inspection: normal respiratory effort and able to speak in complete sentences GI Inspection: Yes normal to inspection Neuro General: patient oriented x3 and moves all extremities Cranial nerves: Yes Equal, round and reactive pupils present Cognition (Neuro): normal cognition Extrem General: Yes normal to inspection, Yes full ROM and Yes capillary refill normal Psych Appearance: grossly normal Mental Status: mental status grossly normal Affect: normal affect Attitude: cooperative Thought process: Normal thought process present Thought content: Normal thought content present Insight: Good insight present (Psych) Course Course Course Narrative: RME performed by Catrachita Rose PA-C. Patient is a 48 year old assigned female at presenting to the emergency department for a chest x-ray to see if she has a recurrence of pneumonia. Detailed physical exam and review of systems are deferred to the dynamite cartridge crimper. Imaging ordered. Patient placed back in the waiting room pending room availability and results. Medical Decision Making Medical Decision Making MDM Narrative: Patient is a 48 year old assigned female at with a history of HTN, asthma, HLD, and migraines presenting to the emergency department today with a cough and requesting a chest x-ray. Patient's physical exam was unremarkable. Patient's chest x-ray showed no acute process. I explained my physical exam findings as well as all test results to the patient. I answered all questions asked by the patient. I stressed the importance of the patient taking her medication as directed (either prescribed or as the over the counter packaging recommends). I stressed the importance of the patient following up with her primary care provider. I stressed the importance of the patient returning to the emergency department immediately if her symptoms were to worsen or if she were to develop any dizziness, shortness of breath, difficulty breathing, chest pain, blurry vision, loss of vision, nausea, vomiting, abdominal pain, fever, chills, back pain, or any other complaints. Patient verbalized agreement and understanding with this treatment plan and discharge. Differential Diagnosis Differential Diagnoses: The differential diagnosis associated with the presenta tion includes Cough Pneumonia URI Admission/Observation Consideration of admission/observation: Escalation of care including ad mission/observation considered Patient would have been admitted to the hospital had her work up had any findings where hospital admission was appropriate and her clinical presentation warranted hospital admission. Independent Interpretation I performed an independent interpretation of an: Plain X-Ray Interpretation: My interpretation is in agreement with the radiologist's impression of this imaging study. EXAMINATION: XR CHEST CLINICAL INFORMATION: Cough. COMPARISON: None available. TECHNIQUE: 2 views of the chest were obtained. FINDINGS: No significant abnormality is noted involving the heart, lungs, mediastinum, or soft tissues. Degenerative changes of the spine. Suspect old, healed left rib fractures. Status post cholecystectomy. Question partially imaged lower cervical hardware, incompletely visualized. XR/XR chest 2V IMPRESSION: No acute finding. Electronically signed by: Matt Alcaraz MD 03/14/2024 04:34 PM EDT RP Dictated By: Matt Alcaraz Signed By: Electronically signed by Matt Alcaraz 03/14/24 6323 Radiology Impression Discussion of test interpretation with radiology: I have reviewed the radiologist's reading. Discharge Plan Discharge Clinical Impression: Cough Patient Disposition: Home, Self-Care Instructions: Acute Cough (ED) Additional Instructions: Follow up with your primary care provider. Return to the emergency department immediately if your symptoms worsen or if you develop any dizziness, shortness of breath, difficulty breathing, chest pain, blurry vision, loss of vision, nausea, vomiting, abdominal pain, fever, chills, back pain, or any other complaints. Prescriptions: No Action topiramate 100 mg tablet 100 mg PO BID 30 Days Qty: 60 5RF baclofen 10 mg tablet 10 mg PO TID PRN (Reason: muscle spasm) Qty: 90 3RF montelukast 10 mg tablet 10 mg PO QPM Qty: 90 3RF oxycodone 5 mg tablet 5 mg PO Q6H PRN (Reason: pain) 28 Days Qty: 112 0RF Rx Instructions: partial fill upon patient request Mounjaro 12.5 mg/0.5 mL pen injector 12.5 mg subcut QWEEK Qty: 2 1RF rosuvastatin 10 mg tablet 10 mg PO DAILY Qty: 90 3RF tramadol 50 mg tablet 50 mg PO Q6H PRN (Reason: pain) 28 Days Qty: 112 0RF Rx Instructions: partial fill upon patient request nortriptyline 75 mg capsule 75 mg PO BEDTIME Mounjaro 10 mg/0.5 mL pen injector 10 mg subcut QWEEK Qty: 6 3RF amoxicillin-pot clavulanate 875-125 mg tablet 1 tab PO BID doxycycline hyclate 100 mg capsule 100 mg PO BID Aimovig Autoinjector 140 mg/mL auto-injector 140 mg subcut .every 30 days 90 Days Qty: 3 3RF albuterol sulfate 90 mcg/actuation HFA aerosol inhaler 2 puff PO Q4H PRN (Reason: for wheezing) Qty: 8.5 2RF gncnrfayqk-nchagkidbmhba-zcbu 50-325-40 mg capsule 1 cap PO Q6H PRN (Reason: pain) 28 Days Qty: 112 0RF Aimovig Autoinjector 140 mg/mL auto-injector subcut ondansetron HCl 8 mg tablet 8 mg PO BID PRN (Reason: nausea/vomiting) Referrals: Noreen Dillard MD [Primary Care Provider] - Interventions: ED Discharge Assessment Last Done: 03/14/24 16:39 Discharge Date/Time: 03/14/24 16:41 Print Language: Barbadian
[2024-03-14 16:39] VITALS: BP 136/67; PULSE 90; RESP 18; TEMP 36.6; O2SAT 98
== END 2024-03-14 16:41 | disposition home or self-care (01) ==
PROVIDERS: Emergency Provider Emergency Medicine; PCP Internal Medicine
DX: R05.9 Cough, unspecified (principal); Z79.899 Other long term (current) drug therapy; Z87.891 Personal history of nicotine dependence
CPT/HCPCS: 71046; 99282; 99284

== ENCOUNTER 2024-05-17 09:24 | Outpatient (AMB) | payer BC, SELFPAY ==
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
[2024-05-17 09:29] VITALS: BP 128/84; PULSE 93; O2SAT 100; BMI 24.4
--- OUTSIDE RECORDS SUMMARY | 2024-05-19 13:57 | XMS_ITS | Data Portability ---
Author Organization JAYNE - [facility], [address] Address [address] [place] [address] Assessment No assessment recorded. Plan of Treatment Reminders Order Date Submit Date Provider Last Modified By Organization Details Last Modified Time Details Appointments None recorded. Lab None recorded. Referral emergency medicine referral - cough, SOB, respirator y distress, Left perihilar airspace opacity. This could represent pneumonia. A lung mass is a considerat ion. Recommende d correlatio n with CT chestPossi ble right lower lobe pneumonia. Need further evaluation and treatment. 2023 024 [facility], [address] [place], [address], 4 12:14:14 Procedures None recorded. Surgeries None recorded. Imaging XR, chest, 2 view 2023 [email or web address] [facility], [address] [facility] [place], [address], 4 16:41:07 Medication Orders amoxicilli n 875 mg-potassi um clavulanat e 125 mg tablet 2023 024 [facility] - [place], [place], [address] [place], [address], 4 16:21:31 doxycyclin e hyclate 100 mg capsule 2023 024 [facility] - [place], [address] [place], [address], 4 16:21:31 albuterol sulfate HFA 90 mcg/actuat ion aerosol inhaler 2023 024 [facility] - [place], [address] [facility], [place], [address], 4 16:21:31 Patient TargetsNo targets recorded. Patient Instructions Encounter Date Encounter Id Patient Instructions Last Modified By Organization Details Last Modified Time 02/10/2024 [id number] pneumonia: care instructions Not available 02/10/2024 16:11:06 shortness of breath: care instructions Not available 02/10/2024 15:44:54 Reason for Referral Emergency Medicine Referral for Pneumonia cough, SOB, respiratory distress, Left perihilar airspace opacity. This could represent pneumonia. A cough, SOB, respiratory distress, Left perihilar airspace opacity. This could represent pneumonia. A lung mass is a consideration. Recommended correlation with CT chestPossible right lower lobe pneumonia. Need further evaluation and treatment. Referring Physician: Jarrett Mitchell, Urgent Care, Encounter Date: 02/10/2024 Results Created Date Observation Date Name Description Value Unit Range Abnormal Flag Note LastModifiedBy Organization Detail LastModifiedTime 02/10/20 24 02/10/2024 XR, chest , 2 view No observ ation record ed. [email or web address] [facility] [address] [facility], [place], [address], 02/10/2024 16:44:19 Result Notes None recorded. Problems Name Problem SNOMED Code Status Onset Date Resolution Date Notes Provider Name and Address Organization Details Recorded Time Diabetes mellitus 49575817 Active JAX MINEO null, PA - [facility] 4 15:18:33 Migraine 57136465 Active JAX MINEO null, PA - [facility] 4 15:18:38 Asthma 199605956 Active JAX MINEO null, PA - [facility] 4 15:18:43 Chronic back pain 506438273 Active JAX MINEO null, PA - [facility] 15:18:51 Acute lower respiratory tract infection 065908740 Active 2023 Jarrett Mitchell, [employer] [address] , [place], [address], PA - [facility] 15:44:31 Pneumonia 663302171 Active 2023 Jarrettkishore Mitchell, [employer] [address] , [place], [address], PA - [facility] 16:10:01 Problem Notes None recorded. Procedures Surgical History Date Name Laterality Status Provider Name and Address Organization Details Recorded Time procedure on back completed JAX MINEO PA - [facility] 02/10/2024 15:19:23 Wrist arthroscopy/surgery completed JAX MINEO PA - [facility] 02/10/2024 15:19:28 hysterectomy completed JAX MINEO PA - [facility] 02/10/2024 15:19:40 cholecystectomy completed JAX MINEO P A - [facility] 02/10/2024 15:19:50 Shoulder joint surgery completed JAX MINEO PA - [facility] 02/10/2024 15:20:22 Imaging Results Imaging Date Name Status LastModified by Organiz ation Details LastModified Time 02/10/2024 XR, chest, 2 view completed [email or web address] [facility] [address] [place], [address], 02/10/2024 16:44:19 Procedure Notes None recorded. Medical Equipment None Reported. Allergies Allergen ID Allergen Name Allergen Category Reaction Reaction Severity Criticality Documentation Date Start Date Code Code System Note Provider Name and Address Organization Details Recorded Time 058187 Substance with sulfonami de structure and antibacte rial mechanism of action (substanc e) medicatio n Not available Not available Not available 02/10/2024 41124 8003 SNOMED JAX MINEO null, PA - [facility] 15:16:11 326222 acetamino phen / hydrocodo ne medicatio n Not available Not available Not available 02/10/2024 56664 2 RxNorm JAX MINEO null, PA - [facility] 4 15:16:20 183496 Demerol medicatio n Not available Not available Not available 02/10/2024 76726 1 RxNorm JAX MINEO null, PA - [facility] 4 15:16:24 573051 codeine medicatio n Not available Not available Not available 02/10/2024 2670 RxNorm JAX MINEO null, PA - [facility] 4 15:16:28 047954 morphine medicatio n Not available Not available Not available 02/10/2024 7052 RxNorm JAX MINEO null, PA - [facility] 4 15:16:44 Medications Name Sig Start Date Stop Date Status Note LastModified by Organization Details LastModified Time amoxicillin 500 mg capsule TAKE 1 CAPSULE BY MOUTH TWICE DAILY FOR 10 DAYS 02/09 completed Not Available Not Available Not Available butalbital- acetaminoph en-caffeine 50 mg-325 mg-40 mg capsule TAKE 1 CAPSULE BY MOUTH every 6 hours NEEDED FOR PAIN 02/09 completed Not Available Not Available Not Available doxycycline hyclate 100 mg capsule Take 1 capsule twice a day by oral route with meal(s) for 10 days, for pneumonia . 2023 active Not Available Not Available Not Avai lable ondansetron HCl 8 mg tablet TAKE 1 TABLET BY MOUTH TWICE DAILY NEEDED FOR NAUSEA/VO MITING active Not Available Not Available No t Available tramadol 50 mg tablet TAKE 1 TABLET BY MOUTH every 6 hours NEEDED FOR PAIN FOR 28 DAYS active Not Available Not Available No t Available ketorolac 10 mg tablet TAKE 1 tablet By Mouth 4 times a day,x7 days as needed for pain,Inst rnot to exceed 40 mg/day and 5 days duration for all dose forms 02/09 completed Not Available Not Available Not Available baclofen 10 mg tablet TAKE 1 TABLET BY MOUTH THREE TIMES DAILY NEEDED FOR MUSCLE spasm active Not Available Not Available No t Available nortriptyli ne 75 mg capsule TAKE 1 CAPSULE BY MOUTH DAILY AT BEDTIME active Not Available Not Available No t Available levothyroxi ne 50 mcg tablet TAKE 1 TABLET BY MOUTH DAILY 02/09 completed Not Available Not Available Not Available montelukast 10 mg tablet TAKE 1 TABLET BY MOUTH every EVENING active Not Available Not Available No t Available hydrochloro thiazide 25 mg tablet TAKE 1 TABLET BY MOUTH DAILY 02/09 completed Not Available Not Available Not Available albuterol sulfate HFA 90 mcg/actuati on aerosol inhaler Inhale 2 puffs every 4 hours by inhalatio n route as needed for 10 days, for cough, SOB. 2023 active Not Available Not Available Not Avai lable topiramate 100 mg tablet TAKE 1 TABLET BY MOUTH TWICE DAILY 02/09 completed Not Available Not Available Not Available amoxicillin 875 mg-potassiu m clavulanate 125 mg tablet Take 1 tablet every 12 hours by oral route with meal(s) for 10 days, for pneumonia . 2023 active Not Available Not Available Not Avai lable oxycodone 5 mg tablet TAKE 1 TABLET BY MOUTH every 6 hours NEEDED FOR PAIN active Not Available Not Available No t Available rosuvastati n 20 mg tablet TAKE 1 TABLET BY MOUTH DAILY 02/09 completed Not Available Not Available Not Available topiramate active Not Available Not Av ailable Not Available butalbital- acetaminoph en-caffeine 50 mg-300 mg-40 mg capsule TAKE 1 CAPSULE BY MOUTH EVERY 4 HOURS NEEDED FOR 28 DAYS 02/09 completed Not Available Not Available Not Available Aimovig Autoinjecto r 140 mg/mL subcutaneou s auto-inject or inject 140 mg Subcutane ous Infusion Every 30 days active Not Available Not Available No t Available Mounjaro 7.5 mg/0.5 mL subcutaneou s pen injector inject 7.5mg UNDER THE SKIN ONCE every 4 WEEKS. rotate injection sites active Not Available Not Available No t Available Mounjaro 10 mg/0.5 mL subcutaneou s pen injector inject 10mg - 1 pen- UNDER THE SKIN ONCE A WEEK active Not Available Not Available No t Available Mounjaro 12.5 mg/0.5 mL subcutaneou s pen injector inject 1 syringe ONCE every WEEK. rotate injection sites active Not Available Not Available No t Available Vitals Date Recorded Body height Body mass index (BMI) Body weight Respiratory rate Body temperature Oxygen saturation Oxygen saturation in Arterial blood by Pulse oximetry Heart rate Systolic blood pressure Diastolic blood pressure Provider Name and Address Organization Details Last Updated DateTime 4 167.64 cm 23.4 kg/m2 57896.8 9 g 18 /min 98 [degF] 96 % 96 % 106 /min 115 mm[Hg] 80 mm[Hg] JAX CARLOS PA - [facility] 4 15:21:37 Social History Question Answer Notes LastModified by Organizat ion Details LastModified Time Tobacco Smoking Status Never Smoker JAXSHI padilla, PA - [facility] 02/10/2024 15:18:59 What Is Your Level Of Alcohol Consumption? Occasional Information not available 02/10/2024 Do You Use Any Illicit Or Recreational Drugs? No Information not available 02/10/2024 Do You Or Have You Ever Used Any Other Forms Of Tobacco Or Nicotine? No Information not available 02/10/2024 Sex: Unknown Functional Status None recorded. Mental Status None recorded. Family History Nothing Reported. Medical History No medical history recorded. Gynecological HistoryNo gynecological history recorded. Obstetrics History GPAL:G 0 P 0 0 0 0 Immunizations Vaccine Type Date Status Note Provider Nam e and Address Organization Details Recorded Time Influenza, MDCK, quadrivalent, PF 1 completed JAX GONZALEZ null, PA - [facility] 02/10/2024 15:20:12 COVID-19, mRNA, LNP-S, PF, 100 mcg/0.5mL dose or 50 mcg/0.25mL dose 1 completed JAX GONZALEZ null, PA - [facility] 02/10/2024 15:20:12 COVID-19, mRNA, LNP-S, PF, 100 mcg/0.5mL dose or 50 mcg/0.25mL dose 1 completed JAX GONZALEZ null, PA - [facility] 02/10/2024 15:20:13 COVID-19, mRNA, LNP-S, PF, 100 mcg/0.5mL dose or 50 mcg/0.25mL dose 2 completed JAX GONZALEZ null, PA - [facility] 02/10/2024 15:20:13 COVID-19, mRNA, LNP-S, PF, 100 mcg/0.5mL dose or 50 mcg/0.25mL dose 1 completed JAX MINEO null, PA - [facility] 02/10/2024 15:20:13 Tdap 2 completed JAX MINEO null, PA - [facility] 02/10/2024 15:20:13 Tdap 2 completed JAX MINEO null, PA - [facility] 02/10/2024 15:20:13 Influenza, split virus, trivalent, preservative 5 completed JAX MINEO null, PA - [facility] 02/10/2024 15:20:13 Influenza, split virus, trivalent, preservative 8 completed JAX MINEO null, PA - [facility] 02/10/2024 15:20:13 Influenza, split virus, trivalent, PF 2 completed JAX MINEO null, PA - [facility] 02/10/2024 15:20:13 Novel qclseznza-[id number], preservative-free 9 completed JAX MINEO null, PA - [facility] 02/10/2024 15:20:13 Influenza, split virus, quadrivalent, PF 0 completed JAX MINEO null, PA - [facility] 02/10/2024 15:20:13 Influenza, split virus, quadrivalent, PF 9 completed JAX MINEO null, PA - [facility] 02/10/2024 15:20:13 Influenza, split virus, quadrivalent, PF 2 completed JAX MINEO null, PA - [facility] 02/10/2024 15:20:13 Influenza, split virus, quadrivalent, PF 3 completed JAX MINEO null, PA - [facility] 02/10/2024 15:20:13 Past Encounters Encounter ID Performer Location Encounter Start Date Encounter Closed Date Diagnosis/Indication Diagnosis SNOMED-CT Code Diagnosis ICD10 Code [id number] [address] [address] 10/21/2017 11:13:46 10/21/2017 11:56:49 [id number] [address] [place] [id number] 08/06/2018 16:19:03 08/06/2018 17:58:04 [id number] [address] [place] [address] 11/19/2016 18:12:54 11/19/2016 18:47:39 [id number] Jarrett [facility] [address] [facility] [address] [place] [address] 02/10/2024 15:08:43 02/10/2024 16:41:06 Acute lower respiratory tract infection 570530099 J22 Pneumonia 824514094 J18. 9 Health Concerns Section Related Observation LastModified by Organization Detai ls LastModified Time None Recorded Concern Status LastModified by Organization Details LastModified Time None Recorded Advance Directives Directive None Recorded Payers Encounter Date Sequence Insurance Name Policy Number Policy Barnett Covered Member ID Barnett Member ID Guarantor Name 10/21/2017 1 [facility] [place] [id number] Obie Hymansay [id number] 08/06/2018 1 [facility]: [facility] [place] [place] [id number] Obie Sebastien Maritza [id number] 02/10/2024 1 [facility]: [facility] [place] [id number] Obie Sebastien Maritza [id number] Notes Date Note Type Note Provider Name and Address Organization Details Recorded Time 4 text/html CoughReported bypatient.source of patient informationInformation obtained from patient; Patient arrived at Urgent Care ambulatory; learning styles: auditory Quality:harsh;dry; intermittent; symptoms worse with lying down Severity:worsening;pain with cough; moderate Duration:constant; symptoms lasting over 2 weeks Timing:worsening; gradual Context:Patient denies vaping; non-smoker;history of bronchitis Modifying Factors:at night Associated Symptoms:no fever; no chills; no chest pain; no heartburn; no nausea; no vomiting; no edema; no agitation; no wheezing; no post nasal drip;hurts to breath Jarrettkishore Mitchell NP [address] [place], [address], PA - [facility] 02/10/2024 16:23:08 OBGyn Episode No OBEpisode recorded.
== END 2024-05-17 10:00 | disposition home or self-care (01) ==
PROVIDERS: PCP Internal Medicine; Visit Provider Internal Medicine
DX: G89.4 Chronic pain syndrome (principal); I10 Essential (primary) hypertension

== ENCOUNTER → 2024-05-17 09:24 | Outpatient (BNVA) | payer BC, SELFPAY | PROVIDERS: PCP Internal Medicine; Visit Provider Internal Medicine | DX: G89.4 Chronic pain syndrome (principal); I10 Essential (primary) hypertension; M54.2 Cervicalgia; M10.9 Gout, unspecified; Z79.891 Long term (current) use of opiate analgesic | CPT/HCPCS: 96127 ==

== ENCOUNTER 2024-08-16 11:06 | Outpatient (AMB) | payer BC, SELFPAY ==
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
[2024-08-16 11:12] VITALS: BP 104/70; PULSE 85; O2SAT 95; BMI 26.3
--- OUTSIDE RECORDS SUMMARY | 2024-08-16 12:34 | XMS_ITS | Data Portability ---
Author Organization JAYNE - [facility], [id number] Address [address] [place] [address] Assessment No assessment recorded. Plan of Treatment [...] Need further evaluation and treatment. 2023 024 [facility], [address] [place], [address], 4 12:14:14 Procedures None recorded. Surgeries None recorded. Imaging XR, chest, 2 view 2023 [email or web address] [facility], [address] [facility] [place], [address], 4 16:41:07 Medication Orders amoxicilli n 875 mg-potassi um clavulanat e 125 mg tablet 2023 024 [facility] [place], [address] [place], [address], 4 16:21:31 doxycyclin e hyclate 100 mg capsule 2023 024 [facility] [place], [address] [place], [address], 4 16:21:31 albuterol sulfate HFA 90 mcg/actuat ion aerosol inhaler 2023 024 [facility] [place], [address] [facility], [place], [address], 4 16:21:31 Patient TargetsNo targets recorded. Patient Instructions Encounter Date Encounter Id Patient Instructions Last Modified By Organization Details Last Modified Time 02/10/2024 [id number] pneumonia: care instructions Not available 02/10/2024 16:11:06 [...] ation record ed. [email or web address] [facility] [address] [facility], [place], [address], 02/10/2024 16:44:19 Result Notes None recorded. Problems Name Problem SNOMED Code Status Onset Date Resolution Date Notes Provider Name and Address Organization Details Recorded Time Diabetes mellitus 01023019 Active JAX MINEO null, [place] - [facility] 4 15:18:33 Migraine 91245731 Active JAX MINEO null, PA - [facility] 4 15:18:38 Asthma 740883205 Active JAX MINEO null, PA - [facility] 4 15:18:43 Chronic back pain 835420016 Active JAX MINEO null, PA - [facility] 15:18:51 Acute lower respiratory tract infection 906922274 Active 2023 Jarrett Mitchell, NURSE EMERGENCY ROOM [address] , [place], [address], [place] - [facility] 15:44:31 Pneumonia 607157540 Active 2023 Jarrettkishore Mitchell, NURSE EMERGENCY ROOM [address] , [place], [address], [place] - [facility] 16:10:01 Problem [...] completed zafarIvis [facility] [address] [place], [address], 02/10/2024 16:44:19 Procedure Notes None recorded. Medical Equipment None Reported. Allergies Allergen ID Allergen Name Allergen Category Reaction Reaction Severity Criticality Documentation Date Start Date Code Code System Note Provider Name and Address Organization Details Recorded Time 457989 Substance with sulfonami de structure and antibacte rial mechanism of action (substanc e) medicatio n Not available Not available Not available 02/10/2024 01578 8003 SNOMED JAX MINEO null, PA - [facility] 15:16:11 311127 acetamino phen / hydrocodo ne medicatio n Not available Not available Not available 02/10/2024 16587 2 RxNorm JAX MINEO null, PA - [facility] 4 15:16:20 673806 Demerol medicatio n Not available Not available Not available 02/10/2024 11123 1 RxNorm JAX MINEO null, PA - [facility] 4 15:16:24 791539 codeine medicatio n Not available Not available Not available 02/10/2024 2670 RxNorm JXA MINEO null, PA - [facility] 4 15:16:28 314674 morphine medicatio n Not available Not available [...] Updated DateTime 4 167.64 cm 23.4 kg/m2 93057.8 9 g 18 /min 98 [degF] 96 [...] PA - [facility] 02/10/2024 15:20:13 Novel [id number], preservative-free 9 completed JAX MINEO null, PA [...] Diagnosis/Indication Diagnosis SNOMED-CT Code Diagnosis ICD10 Code Diagnosis Note [id number] [address] [address] 10/21/2017 11:13:46 10/21/2017 11:56:49 [id number] [address] [address] 08/06/2018 16:19:03 08/06/2018 17:58:04 [id number] [address] [facility] [address] 11/19/2016 18:12:54 11/19/2016 18:47:39 [id number] Jarrett MitchellLEEANN [address] [facility] [address] 02/10/2024 15:08:43 02/10/2024 16:41:06 Acute lower respiratory tract infection 719163278 J22 Pneumonia 978652776 J18. 9 Treatment is antibiotic s as prescribed , inhaler and cough medication as needed, supportive , including, rest, fluids, humidifier , and sometimes cough suppressan ts and/or nasal decongesta nts to help reduce symptoms until your body's immune system kills the virus and the both self-recov ers Breathing warm, moist air helps loosen the sticky mucus that may make you feel like you are choking. Other things that may also help include: Placing a warm, wet washcloth loosely near your nose and mouth.Fill ing a humidifier with warm water and breathing in the warm mist.Cough ing helps clear your airways. Take a couple of deep breaths, 2 to 3 times every hour. Deep breaths help open up your lungs. While lying down, tap your chest gently a few times a day. This helps bring up mucus from the lungs. If you smoke, now is the time to quit. Do not allow smoking in your home. Drink plenty of liquids, as long as your provider says it is OK. Drink water, juice, or weak tea.Drink at least 6 to 10 cups (1.5 to 2.5 liters) a day.Do not drink alcohol.Ge t plenty of rest when you go home. If you have trouble sleeping at night, take naps during the day. Go to Emergency room for new or worsening concerning symptoms.I f breathing is: Getting harderFast er than beforeShal low and you cannot get a deep breathAlso call your provider if you have any of the following: Need to lean forward when sitting to breathe more easilyHave chest pain when you take a deep breathHead aches more often than usualFeel sleepy or confusedFe juancarlos returnsCou ghing up dark mucus or bloodFinge rtips or the skin around your fingernail s is blue If symptoms worsen, return to clinic.If you develop any chest pain, worsening symptoms, worsening shortness of breath, fevers unrelieved with OTC tylenol or ibuprofen go to the nearest emergency room, or call 911. Contact office for any questions. Follow-up with your PCP in 2 weeks for a recheck. If you are not seeing improvemen t within 48-72 hours I would recommend a re-evaluat ion with a chest xray. Recheck chest xray in 1 month with PCP is recommende d to verify pneumonia has resolved. Health Concerns Section Related Observation LastModified by Organization Detai ls LastModified Time None Recorded Concern Status LastModified by Organization Details LastModified Time None Recorded Advance Directives Directive None Recorded Payers Encounter Date Sequence Insurance Name Policy Number Policy Barnett Covered Member ID Barnett Member ID Guarantor Name 10/21/2017 1 [facility] [id number] Obie Hymansay [id number] 08/06/2018 1 [facility] [place] [id number] Obie Sebastien Maritza [id number] 02/10/2024 1 [facility] [place] [id number] Obie Sebastien Maritza [id number] Notes Date Note Type [...] Mitchell NP [address] [place], [address], [place] - [facility] 02/10/2024 16:23:08 OBGyn Episode No OBEpisode recorded.
== END 2024-08-16 11:49 | disposition home or self-care (01) ==
PROVIDERS: PCP Internal Medicine; Visit Provider Internal Medicine
DX: G43.119 Migraine with aura, intractable, without status migrainosus (principal); R73.09 Other abnormal glucose; G47.33 Obstructive sleep apnea (adult) (pediatric)

== ENCOUNTER → 2024-08-16 11:06 | Outpatient (BNVA) | payer BC, SELFPAY | PROVIDERS: PCP Internal Medicine; Visit Provider Internal Medicine ==

== ENCOUNTER 2024-08-16 11:52 | Outpatient (REF) | payer BC, SELFPAY ==
[2024-08-16 14:49] LABS: Estimated Average Glucose 108 mg/dL; Hemoglobin A1c % 5.4 % (<6.0)
[2024-08-16 15:06] LABS: Alanine Aminotransferase 96 U/L (0-31); Albumin Level 4.4 g/dL (3.5-5.0); Alkaline Phosphatase 273 U/L (39-117); Anion Gap 14 (12-20); Aspartate Amino Transferase 30 U/L (5-31); Bilirubin Total 0.2 mg/dL (0.0-1.0); Blood Urea Nitrogen 17 mg/dL (9-16); Calcium 9.9 mg/dL (8.4-10.2); Carbon Dioxide 27 mmol/L (22-29); Chloride 105 mmol/L (96-108); Cholesterol 254 mg/dL (<200); Estimated Glomerular Filt Rate > 60; Glucose Random 97 mg/dL (60-115); HDL Cholesterol 74 mg/dL (>40); LDL Cholesterol Calculated 150 mg/dL (<100); Potassium 3.9 mmol/L (3.3-5.1); Sodium 142 mmol/L (135-145); Total Protein 8.2 g/dL (6.5-8.0); Triglycerides 150 mg/dL (<150)
== END 2024-08-16 11:53 | disposition home or self-care (01) ==
LOC: HO.WFDLDS 11:52
PROVIDERS: Visit Provider Internal Medicine
DX: R73.09 Other abnormal glucose (principal); E66.9 Obesity, unspecified
CPT/HCPCS: 36415; 80053; 80061; 82043; 83036

== ENCOUNTER 2025-01-10 11:50 | Outpatient (AMB) | payer BC, SELFPAY ==
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
[2025-01-10 11:54] VITALS: BP 118/82; PULSE 82; RESP 12; O2SAT 99; BMI 28.8
== END 2025-01-10 12:30 | disposition home or self-care (01) ==
LOC: HO.HMCFM 11:51
PROVIDERS: PCP Internal Medicine; Visit Provider Internal Medicine
DX: E78.2 Mixed hyperlipidemia (principal); E66.9 Obesity, unspecified; Z68.28 Body mass index [BMI] 28.0-28.9, adult; I10 Essential (primary) hypertension; M54.50 Low back pain, unspecified; G89.29 Other chronic pain

== ENCOUNTER → 2025-01-10 11:50 | Outpatient (BNVA) | payer BC, SELFPAY | PROVIDERS: PCP Internal Medicine; Visit Provider Internal Medicine | DX: Z13.31 Encounter for screening for depression (principal); E66.9 Obesity, unspecified; E78.2 Mixed hyperlipidemia; I10 Essential (primary) hypertension; M54.50 Low back pain, unspecified; G89.29 Other chronic pain | CPT/HCPCS: 96127 ==

== ENCOUNTER 2025-01-10 12:35 | Outpatient (REF) | payer BC, SELFPAY ==
[2025-01-10 13:59] LABS: MANUAL DIFF FLAG NO
[2025-01-10 14:13] LABS: Hematocrit 36.7 % (37.0-47.0); Hemoglobin 11.9 g/dl (12.0-16.0); Imm Gran Abs Auto 0.01 X10*3/uL (0.00-0.03); Imm Gran Pct Auto 0.2 % (0.0-0.4); Lymphocytes Absolute Auto 2.4 X10*3/uL (1.2-4.9); Mean Corpuscular HGB Conc 32.4 g/dl (31.0-35.0); Mean Corpuscular Hemoglobin 29.8 pg (27.0-33.0); Mean Corpuscular Volume 92.0 fL (80.0-98.0); NRBC Abs Auto 0.000 X10*3/uL (0.0-0.012); NRBC Pct Auto 0.0 /100WBC (0.0-0.2); Platelet Count 238 X10*3/uL (160-400); Red Blood Count 3.99 X10*6/uL (4.20-5.50); White Blood Count 5.4 X10*3/uL (4.8-10.8)
[2025-01-10 14:29] LABS: Alanine Aminotransferase 161 U/L (0-31); Albumin Level 4.7 g/dL (3.5-5.0); Alkaline Phosphatase 201 U/L (39-117); Anion Gap 13 (12-20); Aspartate Amino Transferase 218 U/L (5-31); Blood Urea Nitrogen 13 mg/dL (9-16); Calcium 9.0 mg/dL (8.4-10.2); Carbon Dioxide 25 mmol/L (22-29); Chloride 105 mmol/L (96-108); Cholesterol 261 mg/dL (<200); Estimated Glomerular Filt Rate > 60; HDL Cholesterol 87 mg/dL (>40); Potassium 3.7 mmol/L (3.3-5.1); Sodium 139 mmol/L (135-145); Total Protein 7.3 g/dL (6.5-8.0); Triglycerides 135 mg/dL (<150); Uric Acid 5.9 mg/dL (2.4-5.7)
[2025-01-10 14:35] LABS: Hemoglobin A1C 119.7959 umol/L; Total Hemoglobin (HGBA1C) 3181.2294 umol/L
[2025-01-10 14:46] LABS: Free T4 (Free Thyroxine) 0.86 ng/dL (0.71-1.85); Thyroid Stimulating Hormone 2.22 uIU/mL (0.32-4.0)
[2025-01-11 21:39] LABS: Lyme Abs Screen <0.90 index
== END 2025-01-10 12:36 | disposition home or self-care (01) ==
LOC: HO.WFDLDS 12:35
PROVIDERS: Visit Provider Internal Medicine
DX: R73.09 Other abnormal glucose (principal); E79.0 Hyperuricemia without signs of inflammatory arthritis and tophaceous disease; R21 Rash and other nonspecific skin eruption; I10 Essential (primary) hypertension; E78.2 Mixed hyperlipidemia; R94.6 Abnormal results of thyroid function studies; Z13.0 Encounter for screening for diseases of the blood and blood-forming organs and certain disorders involving the immune mechanism; Z01.84 Encounter for antibody response examination
CPT/HCPCS: 36415; 80053; 80061; 83036; 84439; 84443; 84481; 84550; 85025; 86200; 86376; 86431; 86617; 86618

== ENCOUNTER 2025-04-11 11:42 | Outpatient (REF) | payer BC, SELFPAY ==
[2025-04-11 14:06] LABS: MANUAL DIFF FLAG NO
[2025-04-11 14:12] LABS: Hematocrit 37.0 % (37.0-47.0); Hemoglobin 12.2 g/dl (12.0-16.0); Imm Gran Abs Auto 0.02 X10*3/uL (0.00-0.03); Imm Gran Pct Auto 0.3 % (0.0-0.4); Lymphocytes Absolute Auto 1.8 X10*3/uL (1.2-4.9); Mean Corpuscular HGB Conc 33.0 g/dl (31.0-35.0); Mean Corpuscular Hemoglobin 30.3 pg (27.0-33.0); Mean Corpuscular Volume 92.0 fL (80.0-98.0); NRBC Abs Auto 0.000 X10*3/uL (0.0-0.012); NRBC Pct Auto 0.0 /100WBC (0.0-0.2); Platelet Count 258 X10*3/uL (160-400); Red Blood Count 4.02 X10*6/uL (4.20-5.50); White Blood Count 6.4 X10*3/uL (4.8-10.8)
[2025-04-11 14:25] LABS: Alanine Aminotransferase 23 U/L (0-31); Albumin Level 4.7 g/dL (3.5-5.0); Alkaline Phosphatase 142 U/L (39-117); Anion Gap 13 (12-20); Aspartate Amino Transferase 24 U/L (5-31); Blood Urea Nitrogen 11 mg/dL (9-16); Calcium 9.6 mg/dL (8.4-10.2); Carbon Dioxide 22 mmol/L (22-29); Chloride 108 mmol/L (96-108); Cholesterol 203 mg/dL (<200); Estimated Glomerular Filt Rate > 60; HDL Cholesterol 67 mg/dL (>40); Potassium 3.5 mmol/L (3.3-5.1); Sodium 139 mmol/L (135-145); Total Protein 7.9 g/dL (6.5-8.0); Triglycerides 150 mg/dL (<150)
[2025-04-11 14:29] LABS: Uric Acid 2.9 mg/dL (2.4-5.7)
[2025-04-12 06:43] LABS: HBS Num1 2.65 mIU/mL (0-7.99); HBc Num1 0.10 S/CO (0.00-0.79); HBsAGNum1 0.36 S/CO (0.00-0.99); Hepatitis B Surface Antigen Negative (Negative); ~HepC Num1 0.19 S/CO (0.00-0.79); ~Hepatitis B Surface Antibody NONREACTIVE (Nonreactive); ~Hepatitis C Antibody Nonreactive (Nonreactive)
[2025-04-14 16:14] LABS: Alk.Phos Iso. Macrohepatic 0 % (<=0); Alk.Phos Isoenzymes Bone 32 % (28-66); Alk.Phos Isoenzymes Intest 0 % (1-24); Alk.Phos Isoenzymes Liver 68 % (25-69); Alk.Phos Isoenzymes Placental 0 % (<=0); Alk.Phos Isoenzymes Total 133 U/L (37-153)
== END 2025-04-11 11:43 | disposition home or self-care (01) ==
LOC: HO.WFDLDS 11:42
PROVIDERS: PCP Internal Medicine; Visit Provider Nurse Practitioner Family
DX: I10 Essential (primary) hypertension (principal); R73.09 Other abnormal glucose; R94.6 Abnormal results of thyroid function studies; R79.89 Other specified abnormal findings of blood chemistry; M79.671 Pain in right foot; E66.9 Obesity, unspecified; Z68.27 Body mass index [BMI] 27.0-27.9, adult
CPT/HCPCS: 36415; 80053; 80061; 84080; 84550; 85025; 86704; 86706; 86803; 87340

== ENCOUNTER 2025-04-11 11:42 | Outpatient (AMB) | payer BC, SELFPAY ==
--- NOTE | 2025-04-11 11:46 | MHC.PC.OV ---
Vital Signs 04/11/25 11:51 Height 5 ft 6 in Weight 172 lb BMI 27.8 BP 141/81 H Blood Pressure Location Rt brachial Position Sitting Respiration 16 Pulse 100 Pulse Source Pulse Oximeter Temp 98.0 F Temp Source Oral Pulse Oximetry (%) 100 Oxygen Delivery Method Room Air Intake Visit Reasons: Flare up of gout Intake Note: patient here c/o flare up of gout Padder Cushion Required: No Is last menstrual period known: No Post menopausal: No Patient : No Allergies codeine Allergy (Severe, Verified 04/11/25 12:30) rash morphine Allergy (Severe, Verified 04/11/25 12:30) Rash Sulfa (Sulfonamide Antibiotics) Allergy (Severe, Verified 04/11/25 12:30) rash coconut Allergy (Verified 04/11/25 12:30) Hives meperidine (From Demerol) Adverse Reaction (Severe, Verified 04/11/25 12:30) migraine Medication List - Last Reconciled 04/11/25 by Erik Wong CNP Aimovig Autoinjector (erenumab-aooe) 140 mg subcut QMONTH NS allopurinol 300 mg PO DAILY baclofen 10 mg PO TID PRN dynqcscjnv-ixeepdgeyyerx-krsb 50-325-40 mg 1 tab PO Q6H PRN montelukast 10 mg PO QPM naloxone 4 mg/actuation (Narcan) 4 mg intranasal Q2M PRN nortriptyline 75 mg PO BEDTIME omeprazole 20 mg PO DAILY ondansetron HCl 8 mg PO BID PRN oxycodone 5 mg PO Q6H PRN 28 days OxyContin ER (oxycodone) 10 mg PO BID NS rosuvastatin (Crestor) 40 mg PO DAILY topiramate 100 mg PO BID 90 days Ventolin HFA 90 mcg/actuation (albuterol sulfate) 2 puffs PO Q4H PRN NS Tobacco use date assessed: 04/11/25 Dental Screening Dental Screen Date: 04/11/25 Did you have a dental visit in the last 12 months?: Yes Did you have a dental problem in the last 6 months where you did not have access to dental care?: No Was dental information given to patient?: Patient has dentist HPI HPI Comments History of Present Illness Details 49-year-old female presents with complaints of gout flare-up. She reports swelling, pain, and redness to her right foot for the past 3 days. Aggravating factors are palpation or prolonged standing; her work requires standing for 9 hours daily for 6 days. Elevated factors include not standing and not touching the area. She has been taking her usual pain meds and ibuprofen 800 mg every 8 hours without relief of the pain. Ibuprofen and cool compresses help with the swelling. She denies fall, injury, or trauma. She has been taking allopurinol 300 mg daily as prescribed. 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 [employer] Current occupational exposures/hazards: No Cognitive needs: No Hearing needs: No Vision needs: Yes (glasses) Questionnaire Thrive Questionnaire Date Thrive assessed: 08/13/24 I am a: Patient What is your living situation today?: I have a steady place to live Within the past 12 months, did the food you bought not last and you didn't have the money to get more?: Never true Within the past 12 months, did you worry whether your food would run out before you got money to buy more?: Never true Do you have trouble paying for medicines?: No Do you have trouble getting transportation to medical appointments?: No Do you have trouble paying your heating and electricity bill?: No Do you have trouble taking care of your child, family member or friend?: No Do you have trouble with day-to-day activities such as bathing, preparing meals, shopping, managing finances, etc.?: No Are you currently unemployed and looking for a job?: No Are you interested in more education?: No Please select the resources that you would like help with: None Currently or been in a relationship where the following occur: I choose not to answer THRIVE Score: 0 CARLOS-7 AMB Questionnaire CARLOS-7 Date CARLOS - 7 assessed: 05/17/24 Source: Developed by Drs. Todd Cuenca, Renetta Velasquez, Al Parkinson and colleagues, with an educational colt from [employer]. Review of Systems Const Details: Const Denies chills, Denies fatigue, Denies fever(s), Denies headache(s) and Denies weakness ENT Denies dizziness and Denies headache(s) Card Denies chest pain, Denies lightheadedness, Denies dyspnea and Denies other (Palpitations) Resp Denies cough, Denies dyspnea, Denies wheezing and Denies other ( shortness of breath) GI Denies abdominal pain, Denies melena, Denies hematochezia, Denies change in bowel habits, Denies dyspepsia and Denies nausea Denies hematuria and Denies dysuria Musc Reports as per HPI Skin/Breast Denies rash, Denies unusual bruising and Denies wounds Neuro Denies abnormal gait, Denies dizziness, Denies headache(s), Denies memory loss, Denies numbness, Denies Sensory deficit (Neuro), Denies tingling and Denies weakness Psych Denies anxiety, Denies depression, Denies memory loss Endo Denies cold intolerance, Denies fatigue, Denies heat intolerance, Denies polydipsia and Denies polyuria Aller/Immun Denies wheezing Physical exam (Primary Care) Vital Signs: Last Vital Signs Temp 98.0 F 04/11/25 11:51 Pulse 100 04/11/25 11:51 Resp 16 04/11/25 11:51 BP 141/81 H 04/11/25 11:51 Pulse Ox 100 04/11/25 11:51 Oxygen Delivery Method Room Air 04/11/25 11:51 BMI result Body Mass Index 27.8 Tobacco/Smoking Status: Tobacco use Status Tobacco use date assessed 04/11/25 04/11/25 11:54 Patient Tobacco Use Status Former Tobacco user 04/11/25 11:48 e-Cigarette/Vaping Use Never Used 04/11/25 11:48 Relapse Prevention: discussed dietary, exercise and/or lifestyle changes Thrive Assessment: Date of Thrive Assessment Date Thrive assessed 08/13/24 04/11/25 11:48 Currently or been in a relationship where the following occur: I choose not to answer Const Other: General: no acute distress and well developed Nutritional Appearance: well nourished Orientation/consciousness: patient oriented x3 [facility] Head: Yes normocephalic and Yes atraumatic Eyes General: appearance normal, both eyes and all related structures Pupils: Equal, round and reactive pupils present EOM: EOMs intact bilaterally Resp Effort & Inspection: normal respiratory effort Auscultation: clear to auscultation bilaterally Cardio Rate: regular rate Rhythm: regular rhythm Heart sounds: S1 normal heart sound present, S2 normal heart sound present, no gallops, no murmurs and no rubs Musc Significant edema and moderate erythema noted to the top of the right foot and adjacent the arch, tenderness with palpation, skin is intact Extrem General: Yes normal to inspection, No edema and No calf tenderness Skin General: warm and dry. Normal skin color. Normal skin turgor Neuro General: patient oriented x3, gait normal and no focal neuro deficit Cranial nerves: Yes Equal, round and reactive pupils present Cognition (Neuro): normal cognition Gait exam (Neuro): Normal gait present Sensory Exam: No Sensory deficit (Neuro) Psych Appearance: grossly normal Affect: normal affect Attitude: cooperative Thought process: Normal thought process present Coding Level of Care Code Est Pt Level 4 (77648) Diagnoses Foot pain, right M79.671 Assessment & Plan Assessment & Plan (1) Foot pain, right: Code(s): M79.671 - Pain in right foot Category: Medical Plan: Significant edema and moderate erythema noted to the top of the right foot and adjacent the arch, tenderness with palpation, skin is intact. Likely gout, although osteoarthritis is possible. Indomethacin 50 mg 3 times daily x7 days ordered; advised to take as prescribed. Instructed on the risks, benefits, and potential adverse reactions of the medication. Will check uric acid level. Cool compresses encouraged. Advised to avoid prolonged standing or walking. Continue current treatment regimen. Follow-up with PCP with worsening or new symptoms. Verbalized understanding and agreed with the plan. Orders: Orders Uric Acid Today M79.671 - Pain in right foot Medications: New indomethacin administer with food or milk 50 mg PO TID 21 caps 0RF 7 days
[2025-04-11 11:51] VITALS: BP 141/81; PULSE 100; RESP 16; TEMP 36.7; O2SAT 100; BMI 27.8
--- OUTSIDE RECORDS SUMMARY | 2025-04-11 14:54 | XMS_ITS | Data Portability ---
Author Organization [facility], [address] Address [address] [place] [address] Assessment No assessment recorded. Plan of Treatment Reminders Order Date Submit Date Provider Last Modified By Organization Details Last Modified Time Details Appointments None recorded. Lab None recorded. Referral emergency medicine referral - cough, SOB, respirator y distress, Left perihilar airspace opacity. This could represent pneumonia. A lung mass is a considerat ion. Recommende d correlatio n with CT chest Possible right lower lobe pneumonia. Need further evaluation and treatment. 2023 [facility], [address] [place], [address], 12:14:14 Procedures None recorded. Surgeries None recorded. Imaging XR, chest, 2 view 2023 [email or web address] [facility], [address] [place] [address]., [place], [address], 4 16:41:07 Medication Orders amoxicilli n 875 mg-potassi um clavulanat e 125 mg tablet 2023 024 [facility] - [place], [place], [address] [place], [address], 4 16:21:31 doxycyclin e hyclate 100 mg capsule 2023 024 [facility] - [place], [place], [address] [place], [address], 4 16:21:31 albuterol sulfate HFA 90 mcg/actuat ion aerosol inhaler 2023 024 [facility] - [place], [address] [facility], [place], [address], 4 16:21:31 Patient TargetsNo targets recorded. Patient Instructions Encounter Date Encounter Id Patient Instructions Last Modified By Organization Details Last Modified Time 02/10/2024 [id number] pneumonia: care instructions Not available 02/10/2024 16:11:06 [...] ation record ed. [email or web address] [facility] [address] [facility], [place], [address], 02/10/2024 16:44:19 Result Notes None recorded. Problems Name Problem SNOMED Code Status Onset Date Resolution Date Notes Provider Name and Address Organization Details Recorded Time Diabetes mellitus 43050338 Active JAX MINEO null, [place] - [facility] 15:18:33 Migraine 63620463 Active JAX MINEO null, PA - [facility] 15:18:38 Asthma 326543472 Active JAX MINEO null, PA - [facility] 4 15:18:43 Chronic back pain 029919315 Active JAX MINEO null, PA - [facility] 4 15:18:51 Acute lower respiratory tract infection 943431612 Active 2023 Jarrett Houaz, SHANK MAKER [address] , [place], [address], [place] - [facility] 4 15:44:31 Pneumonia 099513050 Active 2023 Jarrett Houaz, SHANK MAKER [address] [place], [place], [address], [place] - [facility] 4 16:10:01 Problem Notes None recorded. Procedures Surgical [...] - [facility] 02/10/2024 15:20:22 Imaging Results None recorded. Procedure Notes None recorded. Medical Equipment None Reported. Allergies Allergen ID Allergen Name Allergen Category Reaction Reaction Severity Criticality Documentation Date Start Date Code Code System Note Provider Name and Address Organization Details Recorded Time 571418 Substance with sulfonami de structure and antibacte rial mechanism of action (substanc e) medicatio n Not available Not available Not available 02/10/2024 69147 8003 SNOMED JAX MINEO null, PA - [facility] 4 15:16:11 161329 acetamino phen / hydrocodo ne medicatio n Not available Not available Not available 02/10/2024 64544 2 RxNorm JAX MINEO null, PA - [facility] 4 15:16:20 357190 Demerol medicatio n Not available Not available Not available 02/10/2024 38816 1 RxNorm JAX MINEO null, PA - [facility] 4 15:16:24 250414 codeine medicatio n Not available Not available Not available 02/10/2024 2670 RxNorm JAX padilla, PA - [facility] 4 15:16:28 842458 morphine medicatio n Not available Not available Not available 02/10/2024 7052 RxNorm JAX padilla, PA - [facility] 4 15:16:44 Medications [...] blood by Pulse oximetry Heart rate Systolic And Diastolic Provider Name and Address Organization Details Last Updated DateTime 4 167.64 cm 23.4 kg/m2 42894.8 9 g 18 /min 98 [degF] 96 % 96 % 106 /min 115/80 mm[Hg] JAX GONZALEZ PA - [facility] 4 15:21:37 Social History None recorded. Functional Status Question Answer Note LastModified by Organizat ion Details LastModified Time Do you use any illicit or recreational drugs? No Information not available 02/10/2024 Do you or have you ever used any other forms of tobacco or nicotine? No Information not available 02/10/2024 What is your level of alcohol consumption? Occasional Information not available 02/10/2024 Mental Status None recorded. Family History Nothing Reported. Medical History No medical history recorded. Gynecological HistoryNo gynecological history recorded. Obstetrics History GPAL:G 0 P 0 0 0 0 Immunizations Vaccine Type Date Status Note Provider Nam e and Address Organization Details Recorded Time Influenza, MDCK, quadrivalent, PF 1 completed JAX MINEO null, PA - [facility] 02/10/2024 15:20:12 COVID-19, mRNA, LNP-S, PF, 100 mcg/0.5mL dose or 50 mcg/0.25mL dose 1 completed JAX MINEO null, PA - [facility] 02/10/2024 15:20:12 COVID-19, mRNA, LNP-S, PF, 100 mcg/0.5mL dose or 50 mcg/0.25mL dose 1 completed JAX MINEO null, PA - [facility] 02/10/2024 15:20:13 COVID-19, mRNA, LNP-S, PF, 100 mcg/0.5mL dose or 50 mcg/0.25mL dose 2 completed JAX MINEO null, PA - [...] PA - [facility] 02/10/2024 15:20:13 Novel [id number], preservative-free 9 completed JAX MINEO null, PA [...] Diagnosis SNOMED-CT Code Diagnosis ICD10 Code Diagnosis IMO Codes Diagnosis Note [id number] [address] [place] [address] [address] 10/21/2017 11:13:46 10/21/2017 11:56:[id number] [place] [address] [address] [address] 08/06/2018 16:19:03 08/06/2018 17:58:[id number] [place] [address] [address] [address] 11/19/2016 18:12:54 11/19/2016 18:47:39 [id number] [place] [address] [facility] [address] [place] [address] 02/10/2024 15:08:43 02/10/2024 16:41:06 Acute lower respiratory tract infection 038462450 J22 Pneumonia 423390600 J18. 9 Treatment is antibiotic s as [...] Recorded Advance Directives Directive None Recorded Payers Insurance Date Sequence Insurance Name Policy Number Policy Barnett Covered Member ID Barnett Member ID Guarantor Name 02/10/2024 1 [facility] ([facility]) [id number] Obie Salas [id number] Latonia Maritza Notes Date Note Type Note Provider Name and Address Organization Details Recorded Time 02/10/20 24 text/ht ml Shortness of BreathReported by Patient CoughReported by PatientHPIFor quality, patient reportsharshanddrybut reportsintermittentandsymptoms worse with lying down. For severity, patient reportsworseningandpain with coughbut reportsmoderate. For timing, patient reportsworseningbut reportsgradual. For context, patient reportshistory of bronchitisbut reportspatient denies vapingandnon-smoker. For associated symptoms, patient reportshurts to breathbut reportsno fever,no chills,no chest pain,no heartburn,no nausea,no vomiting,no edema,no agitation,no wheezing, andno post nasal drip. For source of patient information, patient reportsinformation obtained from patient,patient arrived at urgent care ambulatory, andlearning styles: auditory. For duration, patient reportsconstantandsymptoms lasting over 2 weeks. For modifying factors, patient reportsat night. Jarrett Mitchell NP [address] [place], [address], [place] - [facility] 02/10/2024 16:23:08 OBGyn Episode No OBEpisode recorded.
== END 2025-04-11 12:38 | disposition home or self-care (01) ==
LOC: HO.HMCFM 11:43
PROVIDERS: PCP Internal Medicine; Visit Provider Nurse Practitioner Family
DX: M79.671 Pain in right foot (principal)

== ENCOUNTER 2025-04-15 11:02 | Outpatient (AMB) | payer BC, SELFPAY ==
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
[2025-04-15 11:11] VITALS: BP 126/74; PULSE 86; RESP 14; O2SAT 99; BMI 28.2
== END 2025-04-15 11:37 | disposition home or self-care (01) ==
LOC: HO.HMCFM 11:04
PROVIDERS: PCP Internal Medicine; Visit Provider Internal Medicine
DX: E78.2 Mixed hyperlipidemia (principal); R79.89 Other specified abnormal findings of blood chemistry; M51.369 Other intervertebral disc degeneration, lumbar region without mention of lumbar back pain or lower extremity pain; M54.16 Radiculopathy, lumbar region; G47.33 Obstructive sleep apnea (adult) (pediatric)